=== PATIENT | female | born 1935 | race Caucasian/White ===

== ENCOUNTER → 2017-08-10 | Outpatient (CLI) | payer OTHER ==
[~2017-08-10] MED LIST: ASPI81TA28 PO; ATOR-22 PO; CARV25TA2 PO; CETI10TA10 PO; EXEN1INJ4 SQ; EZET10TA47 PO; GLC/500 PO; HYDR-389 PO; HYDR-4715 PO; IPRA1AER2 INH; IPRASOL34 INH; IRBE1TAB48 PO; LISI-729 PO; MECL1TAB40 PO; NITR0.4S UT; OMEP20CA9 PO; POTA-327 PO; SYMIN160 INH; THEO1CAP2 PO; TRIA3AER NAE; ULT/50 PO
--- NOTE | 2017-08-10 16:50 | DIAGNOSTIC IMAGING REPORT ---
TWO VIEW CHEST CLINICAL HISTORY: Asthma. COPD. FINDINGS: PA and lateral chest radiographs are compared to study dated 12/12/2015. Correlation is made with chest CT dated 08/19/2008. The PA view is degraded by patient rotation. The heart is enlarged and there is atherosclerotic calcification of the thoracic aorta. The pulmonary vasculature is noncongested. Enlargement of the central pulmonary arteries suggests pulmonary artery hypertension. Chronic interstitial thickening and small calcified granulomas are similar to previous. There is no airspace consolidation or pleural effusion. There is no pneumothorax. The skeletal structures are osteopenic. Degenerative change is seen throughout the thoracic spine bony thorax appears intact. Surgical clips are seen in the right lower neck. IMPRESSION: Mild cardiomegaly with no acute cardiopulmonary abnormality. Electronically signed by: Didier Mcgarry M.D. 08/10/2017 4:49 PM Dictated Date/Time: 08/10/2017 4:47 PM
== END | disposition home or self-care (01) ==
LOC: C.RAD1850 16:33
PROVIDERS: ATTEND Physician Assistant
DX: J45.909 Unspecified asthma, uncomplicated (principal); J44.9 Chronic obstructive pulmonary disease, unspecified

== ENCOUNTER 2023-09-24 21:16 | Inpatient (IN) ==
[2023-09-24] MEDS ORDERED: Patient's HEIGHT &/or WEIGHT Needed SCH (21:20)
--- OUTSIDE RECORDS SUMMARY | 2023-09-24 21:20 | External Medical Summary | Summary of Care ---
Author Name Unknown Organization [facility] Address [address] [place] [address] Phone [phone] Care Team Providers Care System Support Analyst Name Role Phone Jose Fitzpatrick MD Primary Care Provider [phone]- [phone] Reason for Visit * Reason Comments eRx-Medication Refill Encounter Details Date Type Department Care Team (Late st Contact Info) Description 08/28/[address] [facility] [address] [place] [address] Jose Fitzpatrick MD [address] [place] [address] Major depressive disorder Allergies No known active allergiesdocumented as of this encounter (statuses as of 08/29/2023) Medications Medication Sig Dispensed Refills Start Date End Date Status OXYGEN 1L HS ANDPRN 0 01/20/1999 Active ASPIRIN 81 MG PO CHEWIndications:D M type 2, goal A1c below 7 One pill by mouth once a day with food 0 0 07/31/2007 Active NITROGLYCERIN 0.4 MG SL SUBLIndications:O bservation for suspected coronary artery disease (CAD) 1 Q 5 min as needed with chest pain up to 3 doses in 15 minutes 25 5 04/16/2008 Active Albuterol Sulfate (ALBUTEROL HFA) 108 (90 BASE) MCG/ACT inhaler Inhale 2 Puffs by mouth every 6 hours as needed for Shortness of Breath. 18 g 1 06/27/2019 Active ipratropium-albut joselo (COMBIVENT RESPIMAT) 20-100 MCG/ACT Inhaler INHALE 1 PUFF 4 TIMES A DAY NEEDED. 12 g 3 07/24/2019 Active BD Pen Needle Short U/F 31G X 8 MM (Insulin Pen Needle)Indication s:Type 2 diabetes mellitus with hemoglobin A1c goal of less than 8.0% ([facility]) use twice a day as directed 200 Each 3 12/03/2021 Active Omeprazole 20 MG Oral Capsule Delayed Release (PriLOSEC) TAKE 1 CAPSULE BY MOUTH ONCE DAILY for stomach acid 90 Capsule 1 01/29/2022 Active Budesonide-Formot joselo Fumarate 160-4.5 MCG/ACT Inhalation Aerosol (Symbicort)Indica tions:Asthma, allergic INHALE TWO PUFFS BY MOUTH TWICE DAILY. RINSE MOUTH AFTER EACH USE 30.6 g 1 09/27/2022 Active Escitalopram Oxalate 20 MG Oral Tablet (Lexapro)Indicati ons:Generalized anxiety disorder Take 1 Tablet by mouth in the morning. 90 Tablet 3 10/01/2022 Active Carvedilol 25 MG Oral Tablet (Coreg) TAKE 1 TABLET BY MOUTH TWICE A DAY WITH MEALS (breakfast and supper) 180 Tablet 2 12/21/2022 Active Lisinopril 5 MG Oral Tablet (Prinivil) TAKE ONE TABLET BY MOUTH IN THE MORNING AND ONE BEFORE BEDTIME 180 Tablet 1 03/09/2023 Active hydrALAZINE HCl 10 MG Oral Tablet (Apresoline) take 1 & 1/2 tablets by mouth three times daily 405 Tablet 1 03/09/2023 Active LORazepam 0.5 MG Oral Tablet (Ativan)Indicatio ns:Generalized anxiety disorder TAKE 1 TABLET BY MOUTH TWICE DAILY NEEDED 60 Tablet 0 04/25/2023 Active Trulicity 0.75 MG/0.5ML Subcutaneous Solution Pen-injector (Dulaglutide)Isela cations:Type 2 diabetes mellitus with hemoglobin A1c goal of less than 8.0% ([facility]) inject contents of 1 syringe (0.75mg) under the skin once weekly 2 mL 5 05/06/2023 Active Ipratropium-Albut joselo 0.5-2.5 (3) MG/3ML Inhalation Solution (Duoneb)Indicatio ns:Extrinsic asthma without complication, unspecified asthma severity, unspecified whether persistent INHALE 1 VIAL VIA NEBULIZER FOUR TIMES DAILY NEEDED FOR SHORTNESS OF BREATH OR WHEEZING 540 mL 1 05/13/2023 Active Ezetimibe 10 MG Oral Tablet (Zetia)Indication s:Dyslipidemia TAKE 1 TABLET BY MOUTH AT BEDTIME FOR HIGH CHOLESTEROL 90 Tablet 1 05/23/2023 Active Atorvastatin Calcium 10 MG Oral Tablet (Lipitor) TAKE 1 TABLET BY MOUTH AT BEDTIME FOR HIGH CHOLESTEROL 90 Tablet 1 05/23/2023 Active Urqkfiosni-BBQI-O affeine 50-325-40 MG Oral Tablet (Fioricet)Indicat ions:Episodic tension-type headache, not intractable TAKE ONE OR TWO TABLETS BY MOUTH EVERY FOUR HOURS NEEDED, NO MORE THAN 6 TABLETS A DAY 30 Tablet 0 07/13/2023 Active HYDROcodone-Aceta minophen 5-325 MG Oral TabletIndications :Cervicalgia Take 1 Tablet by mouth every 8 hours as needed for Pain, Mild. 90 Tablet 0 07/21/2023 Active Gabapentin 100 MG Oral Capsule (Neurontin) 1 at bedtime for 1 week, if ineffective may increase to 1 twice a day 60 Capsule 5 08/04/2023 Active Triamcinolone Acetonide 0.1 % External Cream (Aristocort)Indic ations:Dermatitis Apply topically to affected area 2 times a day. 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 08/29/2018 Major depressive disorder wi th single episode, in full remission 05/02/2018 Chronic obstructive pulmonary disease (COPD) Cor pulmonale (chronic) 05/02/2018 History of PSVT (paroxysmal supraventricular tac hycardia) 08/19/2017 VENTURA (generalized anxiety disorder) 08/19/2017 Gastroesophageal reflux disease 08/19/2017 Dyslipidemia 08/19/2017 HTN, goal below 140/90 08/13/2014 Type 2 diabetes mellitus wit h hemoglobin A1c goal of less than 8.0% 05/14/2013 Overview: ICD-10 update of inactive term EXT ASTHMA W-O STAT ASTH documented as of this encounter (statuses as of 08/29/2023) Resolved Problems Problem Noted Date Diagnosed Date Resolved Date MEDICATION USE AGREEMENT 11/12/2016 Overview: Signed 11/04/2016 Type 2 diabetes mellitus wit h hemoglobin A1c goal of 7.0%-8.0% 01/26/2012 05/14/2013 Overview: ICD-10 update of inactive term HTN, goal below 130/80 01/25/201208/13 Dyslipidemia, goal LDL below 100 05/17/2011 11/24/2016 Type 2 diabetes mellitus wit h hemoglobin A1c goal of less than 7.0% 07/10/2010 01/26/2012 Overview: ICD-10 update of inactive term HTN, goal below 140/90 04/24/200901/24 Overview: Modified per HTN protocol #16. ADVANCE DIRECTIVE INFORMATION 08/16/2005 08/19/2017 Overview: No, Advance Directive brochure given to patient. Other atopic dermatitis 04/01/200401/05 Overview: ICD-10 update of inactive term Dyslipidemia, goal to be determined 04/01/2004 05/17/2011 Paroxysmal SVT (supraventricular tachycardia) 04/02/20 02 08/19/2017 Observation for suspected co ronary artery disease (CAD) 04/02/2002 07/31/2007 Urinary incontinence 03/24/2000 018 Overview: ICD-10 update of inactive term Prolapse of vaginal zamorano 03/24/2000 Overview: ICD-10 update of inactive term HYPERTENSION NOS 04/24/2009 Overview: Modified per HTN protocol #16. Major depressive disorder Overview: ICD-10 update of inactive term Menopause 01/25/2012 documented as of this encounter (statuses as of 08/29/2023) Immunizations Name Administration Dates Next Due COVID-19, MRNA-LNP, 23-24, P F, 50 MCG/0.5 mL, 12 YRS AND ABOVE, IM (MODERNA-Spikevax) 04/07/2023 Pneumococcal Conjugate Vacc, 13 Valent (Prevnar) 04/27/2017 Pneumococcal Polysaccharide PPV23 (Pneumovax) 03/27/2007 Seasonal Influenza, PF, 6 M & above, IM , (FluLaval or Fluzone) 03/13/2018,04/27/2017 04/27/2018 Seasonal Influenza, Quadriva lent Hd (Fluzone Hd) 03/13/2022,04/08/2021 Seasonal Influenza, Quadriva lent, No Preserve, IM 02/04/2019 Seasonal Influenza, Split, I IV3, No Preserve, Inj 04/02/2002 Seasonal Influenza, Split, I IV3, With Preserve, Inj 03/06/2011,04/06/2009,04/09/2008,03/06 TD, Preservative Free 01/06/2009 Zoster Vaccine Recombinant (Shingrix) 08/04/2023 ,04/07/2023 documented as of this encounter Social History Tobacco Use Types Packs/Day Years Used Date Smoking Tobacco: Never Smokeless Tobacco: Never Alcohol Use Standard Drinks/Week Comments No 0 (1 standard drink = 0.6 oz pur e alcohol) PHQ-2 Answer Date Recorded PHQ-2 Score 1 01/25/2019 Hunger Vital Sign Answer Date Recorded Worried About Running Out of Food in the Last Ye ar Never true 01/25/2019 Ran Out of Food in the Last Year Never true 01/25/2019 Sex and Gender Information Value Date Recorded Sex Assigned at Female 01/25/2019 1:04 PM EDT Gender Identity Female 01/25/2019 1:04 PM EDT Sexual Orientation Straight 01/25/2019 1: 04 PM EDT Job Start Date Occupation Industry Not on file Not on file Not on file documented as of this encounter Miscellaneous Notes * Telephone Encounter - Jose Fitzpatrick MD - 08/29/2023 12:47 PM EDTSigned Prescriptions: Disp Refills hydrOXYzine HCl 10 MG Oral Tablet (Atarax) 100 Ta*1 Sig: TAKE 1 TABLET BY MOUTH THREE TIMES DAILY NEEDEDAuthorizing Provider: JOSE FITZPATRICK * Telephone Encounter - Bambi Melo [facility] - 08/29/2023 11:58 AM EDT Pending Prescriptions: Disp Refills hydrOXYzine HCl 10 MG Oral Tablet (Atarax) 100 Ta*1 Sig: TAKE 1TABLET BY MOUTH THREE TIMES DAILY NEEDED documented in this encounter Plan of Treatment Upcoming Encounters Date Type Department Care Team (Late st Contact Info) Description 09/01/2023 1:30 PM EDT Office Visit Cardiology, [facility] [address] [address] Lynette Christian CRNP [address] [address] 10/04/2023 1:00 PM EDT Office Visit [address] [place] [address] OctoberHarman MD [address] [place] [address] Health Maintenance Due Date Last Done Comments Alpha-1 Antitrypsin 08/24/1953 DTaP,Tdap,and Td Vaccines (1 - Tdap) 01/07/2009 01/06/2009, 01/03/1995, 01/03/1995 CKD HGB USE SMARTSET 69849 04/27/201804/27, 05/22/2012, 05/17/2011, Additional history exists Mammogram 08/26/2019 08/25/2018, 01/04, 01/19/2011 (Done elsewhere), Additional history exists Depression Screening 01/26/2020 01/25/2019 Albumin/Creatinine Ratio 10/29/2022 022, 10/21/2020, 01/08/2020, Additional history exists Influenza Vaccine (FLU shot) (#1) 2023 03/13/2022, 04/08/2021, 03/08/2019, Additional history exists Diabetic Eye Exam 06/04/2023 06/04/2022, , 06/03/2020, Additional history exists B-12 10/02/2023 10/01/2022, 04/07, 10/21/2020, Additional history exists CKD PHOS USE SMARTSET 40548 10/02/2023 10/01/2022 Diabetic Foot Exam 10/02/2023 10/01/2022, 1 07/30/2018, 05/02/2018, Additional history exists HbA1c 10/04/2023 04/04/2023, 09/05, 06/02/2022, Additional history exists O2 ASSESSMENT COMPLETED IN PAST YEAR FOR COPD 08/03/2024 08/04/2023 DXA Scan 04/20/2025 04/20/2022, 04/06, 09/27/2017, Additional history exists Pneumococcal Vaccine: 65+ Years Completed 04/27/2017, 03/27/2007, 04/03/2002, Additional history exists COVID-19 Vaccine Completed 04/07/2023 Zoster Vaccines Completed 08/04/2023, 04/07/2023 GARDASIL-HPV IMMUNIZATION SERIES Aged Out No longer eligible based on patient's age to complete this topic Hepatitis B Aged Out No longer eligi ble based on patient's age to complete this topic MENINGOCOCCAL (MENACTRA/MENVEO) Aged Out No longer eligible based on patient's age to complete this topic documented as of this encounter Medical Devices Not on filedocumented as of this encounter Visit Diagnoses Diagnosis Major depressive disorder Major depressive disorder, single episode, unspecified documented in this encounter Care Teams System Support Analyst Relationship Specialty Start Date End Date Jose Fitzpatrick MD [address] [place] [address] PCP - General Family Medicine 11/04/16 documented as of this encounter
--- OUTSIDE RECORDS SUMMARY | 2023-09-24 21:20 | External Medical Summary | Summary of Care ---
Author Name Unknown Organization [facility] Address [address] [place] [address] Phone [phone] Care Team Providers Care Restaurant Kitchen Manager Name Role Phone Freddy Fitzpatrick MD Primary Care Provider [phone]- [phone] Reason for Visit * Reason Comments eRx-Medication Refill Encounter Details Date Type Department Care Team (Late st Contact Info) Description 09/11/2023 Refill [facility] [address] [place] [address] Freddy Fitzpatrick MD [address] [place] [address] Allergies No known active allergiesdocumented as of this encounter (statuses as of 09/12/2023) Medications Medication Sig Dispensed Refills Start Date End Date Status OXYGEN 1L HS ANDPRN 0 9 Active ASPIRIN 81 MG PO CHEWIndications:D M type 2, goal A1c below 7 One pill by mouth once a day with food 0 0 8 Active NITROGLYCERIN 0.4 MG SL SUBLIndications:O bservation for suspected coronary artery disease (CAD) 1 Q 5 min as needed with chest pain up to 3 doses in 15 minutes 25 5 8 Active Albuterol Sulfate (ALBUTEROL HFA) 108 (90 BASE) MCG/ACT inhaler Inhale 2 Puffs by mouth every 6 hours as needed for Shortness of Breath. 18 g 1 0 Active ipratropium-albut joselo (COMBIVENT RESPIMAT) 20-100 MCG/ACT Inhaler INHALE 1 PUFF 4 TIMES A DAY NEEDED. 12 g 3 0 Active BD Pen Needle Short U/F 31G X 8 MM (Insulin Pen Needle)Indication s:Type 2 diabetes mellitus with hemoglobin A1c goal of less than 8.0% (HCC) use twice a day as directed 200 Each 3 2 Active Omeprazole 20 MG Oral Capsule Delayed Release (PriLOSEC) TAKE 1 CAPSULE BY MOUTH ONCE DAILY for stomach acid 90 Capsule 1 2 Active Budesonide-Formot joselo Fumarate 160-4.5 MCG/ACT Inhalation Aerosol (Symbicort)Indica tions:Asthma, allergic INHALE TWO PUFFS BY MOUTH TWICE DAILY. RINSE MOUTH AFTER EACH USE 30.6 g 1 3 Active Escitalopram Oxalate 20 MG Oral Tablet (Lexapro)Indicati ons:Generalized anxiety disorder Take 1 Tablet by mouth in the morning. 90 Tablet 3 3 Active LORazepam 0.5 MG Oral Tablet (Ativan)Indicatio ns:Generalized anxiety disorder TAKE 1 TABLET BY MOUTH TWICE DAILY NEEDED 60 Tablet 0 3 Active Trulicity 0.75 MG/0.5ML Subcutaneous Solution Pen-injector (Dulaglutide)Isela cations:Type 2 diabetes mellitus with hemoglobin A1c goal of less than 8.0% ([facility]) inject contents of 1 syringe (0.75mg) under the skin once weekly 2 mL 5 3 Active Ipratropium-Albut joselo 0.5-2.5 (3) MG/3ML Inhalation Solution (Duoneb)Indicatio ns:Extrinsic asthma without complication, unspecified asthma severity, unspecified whether persistent INHALE 1 VIAL VIA NEBULIZER FOUR TIMES DAILY NEEDED FOR SHORTNESS OF BREATH OR WHEEZING 540 mL 1 3 Active Ezetimibe 10 MG Oral Tablet (Zetia)Indication s:Dyslipidemia TAKE 1 TABLET BY MOUTH AT BEDTIME FOR HIGH CHOLESTEROL 90 Tablet 1 3 Active Atorvastatin Calcium 10 MG Oral Tablet (Lipitor) TAKE 1 TABLET BY MOUTH AT BEDTIME FOR HIGH CHOLESTEROL 90 Tablet 1 3 Active Yimzfgqqgo-DPTR-I affeine 50-325-40 MG Oral Tablet (Fioricet)Indicat ions:Episodic tension-type headache, not intractable TAKE ONE OR TWO TABLETS BY MOUTH EVERY FOUR HOURS NEEDED, NO MORE THAN 6 TABLETS A DAY 30 Tablet 0 4 Active Triamcinolone Acetonide 0.1 % External Cream (Aristocort)Indic ations:Dermatitis Apply topically to affected area 2 times a day. Apply to neck and chest 80 g 0 4 Active hydrOXYzine HCl 10 MG Oral Tablet (Atarax)Indicatio ns:Major depressive disorder TAKE 1 TABLET BY MOUTH THREE TIMES DAILY NEEDED 100 Tablet 1 4 Active Gabapentin 100 MG Oral Capsule (Neurontin) 2 twice a day 120 Capsule 5 4 Active HYDROcodone-Aceta minophen 5-325 MG Oral TabletIndications :Cervicalgia Take 1 Tablet by mouth every 8 hours as needed for Pain, Mild. 90 Tablet 0 4 Active Carvedilol 25 MG Oral Tablet (Coreg) take 1 tablet by mouth twice a day with meals (breakfast and supper) 180 Tablet 1 4 Active Lisinopril 5 MG Oral Tablet (Prinivil) TAKE 1 TABLET BY MOUTH TWICE DAILY EVERY MORNING AND BEFORE BEDTIME 180 Tablet 1 4 Active hydrALAZINE HCl 10 MG Oral Tablet (Apresoline) TAKE 1 & 1/2 TABLETS BY MOUTH THREE TIMES DAILY 405 Tablet 3 4 Active Carvedilol 25 MG Oral Tablet (Coreg) TAKE 1 TABLET BY MOUTH TWICE A DAY WITH MEALS (breakfast and supper) 180 Tablet 2 3 09/12/19 24 Discontinued Lisinopril 5 MG Oral Tablet (Prinivil) TAKE ONE TABLET BY MOUTH IN THE MORNING AND ONE BEFORE BEDTIME 180 Tablet 1 3 09/12/19 24 Discontinued hydrALAZINE HCl 10 MG Oral Tablet (Apresoline) take 1 & 1/2 tablets by mouth three times daily 405 Tablet 1 3 09/12/19 24 Discontinued documented as of this encounter (statuses as of 09/12/2023) Active Problems Problem Noted Date Diagnosed Date [...] as of this encounter (statuses as of 09/12/2023) Resolved Problems Problem Noted Date Diagnosed Date [...] as of this encounter (statuses as of 09/12/2023) Immunizations Name Administration Dates Next Due COVID-19, [...] encounter Miscellaneous Notes * Telephone Encounter - Freddy Fitzpatrick MD - 09/12/2023 4:28 PM EDTSigned Prescriptions: Disp Refills Carvedilol 25 MG Oral Tablet (Coreg) 180 Ta*1 Sig: take 1 tabletby mouth twice a day with meals (breakfast and supper)Authorizing Provider: FREDDY FITZPATRICK User: GENOVEVA SANCHEZ Lisinopril 5 MG Oral Tablet (Prinivil) 180 Ta*1 Sig: TAKE 1 TABLET BYMOUTH TWICE DAILY EVERY MORNING AND BEFORE BEDTIMEAuthorizing Provider: FREDDY FITZPATRICK User: GENOVEVA SANCHEZ hydrALAZINE HCl 10 MG Oral Tablet (Apresol*405 Ta*3 Sig: TAKE 1 & 1/2 TABLETS BY MOUTH THREE TIMES DAILYAuthorizing Provider: FREDDY FITZPATRICK-- * Telephone Encounter - Genoveva Sanchez [facility] - 09/12/2023 3:17 PM EDTPending Prescriptions: Disp Refills hydrALAZINE HCl 10 MG Oral Tablet (Apresol*405 Ta*0 Sig: TAKE 1 & 1/2 TABLETS BY MOUTH THREE TIMES DAILY Signed Prescriptions: Disp Refills Carvedilol 25 MG Oral Tablet (Coreg) 180 Ta*1 Sig: take 1 tablet by mouth twice a day with meals (breakfast and supper) Authorizing Provider: Cheo FITZPATRICK Ordering User: GRYBOSKI, GENOVEVA [place] Lisinopril 5 MG Oral Tablet (Prinivil) 180 Ta*1 Sig: TAKE 1 TABLET BY MOUTH TWICE DAILY EVERY MORNING AND BEFORE BEDTIME Authorizing Provider: FREDDY FITZPATRICK User: GENOVEVA SANCHEZ * Telephone Encounter - Genoveva Sanchez [facility] - 09/12/2023 3:16 PM EDT Unable to authorize medication refills for pended medication(s) at this time. Part of the protocol criteria used for refill authorization was not satisfied. Patient needs CBC within last year. Pleaseapprove if appropriate. Pending Prescriptions: Disp Refills hydrALAZINE HCl 10 MG Oral Tablet (Apreso*405 Ta*0 Sig: TAKE 1 & 1/2 TABLETS BY MOUTH THREE TIMES DAILY Thank you, Genoveva Sanchez [facility] Clinical Pharmacist [facility] ([facility]) (formerly Telepharmacy) 09/12/23 3:16 PM [phone] * Telephone Encounter - Genoveva Sanhcez [facility] - 09/12/2023 3:10 PM EDT Did you pend patient's preferred pharmacy and medication before forwarding?yes Pharmacy: [id number] [id number] [address] Pending Prescriptions: Disp Refills hydrALAZINE HCl 10 MG Oral Tablet (Apreso*405 Ta*0 Sig: TAKE 1 & 1/2 TABLETS BY MOUTH THREE TIMES DAILY Signed Prescriptions: Disp Refills Carvedilol 25 MG Oral Tablet (Coreg) 180 Ta*1 Sig: take 1 tablet by mouth twice a day with meals (breakfast and supper) Authorizing Provider: FREDDY FITZPATRICK Ordering User: GENOVEVA SANCHEZ Lisinopril 5 MG Oral Tablet (Prinivil) 180 Ta*1 Sig: TAKE 1 TABLET BY MOUTH TWICE DAILY EVERY MORNING AND BEFORE BEDTIME Authorizing Provider: FREDDY FITZPATRICK Ordering User: GENOVEVA SANCHEZ Last Visit: 04/04/2023 (in office), 07/01/2020 (telemedicine) Next Visit: 10/04/2023 If no future appointments scheduled, and last appointment is greater than a year ago, please schedule patient for a follow-up appointment Last date the medication was ordered: 03/09/2023 Is this request for a controlled substance?No Urine Drug Screen:No results found. However, due to the size of the patient record, not all encounters were searched. Please check Results Review for a complete set of results. Patient Phone Numbers Labs: Lab Results Component Value Date/Time CREAT 0.8 04/04/2023 01:52 PM CREAT 0.9 01/08/2020 10:47 AM POTASSIUM 4.4 04/04/2023 01:52 PM POTASSIUM 5.0 01/08/2020 10:47 AM TSH 1.31 05/22/2012 03:52 PM LDLCALC UNINTERPRETABLE RESULT 01/25/2019 02:17 PM LDLDIRECT 54 04/04/2023 01:52 PM LDLDIRECT 54 01/08/2020 10:47 AM ALT 6 (L) 04/04/2023 01:52 PM ALT 11 01/08/2020 10:47 AM HGBA1C 6.1 (H) 04/04/2023 01:52 PM HGBA1C 7.2 (H) 01/08/2020 10:47 AM documented in this encounter Plan of Treatment Upcoming Encounters Date Type Department Care Team (Late st Contact Info) Description 10/04/2023 1:00 PM EDT Office Visit [address] [place] [address] Harman Rodriguez MD [address] [place] [address] 10/10/2023 1:00 PM EDT Office Visit Neurology [facility] [address] [facility] [place] [address] Tiffanie Olsen MD [address] [facility] [place] [address] 01/24/2024 11:00 AM EDT Office Visit [facility], [facility] [address] [facility] [place] [address] Lynette Christian CRNP [address] [place] [address] Health Maintenance Due Date Last Done Comments Alpha-1 Antitrypsin 08/24/1953 DTaP,Tdap,and Td Vaccines (1 - Tdap) 01/07/2009 01/06/2009, 01/03/1995, 01/03/1995 CKD HGB USE SMARTSET 91348 04/27/201804/27, 05/22/2012, 05/17/2011, Additional history exists Mammogram 08/26/2019 08/25/2018, 01/04, 01/19/2011 (Done elsewhere), Additional history exists Albumin/Creatinine Ratio 10/29/2022 022, 10/21/2020, 01/08/2020, Additional history exists Diabetic Eye Exam 06/04/2023 06/04/2022, , 06/03/2020, Additional history exists B-12 10/02/2023 10/01/2022, 04/07, 10/21/2020, Additional history exists CKD PHOS USE SMARTSET 63269 10/02/2023 10/01/2022 Diabetic Foot Exam 10/02/2023 10/01/2022, 1 07/30/2018, 05/02/2018, Additional history exists HbA1c 10/04/2023 04/04/2023, 09/05, 06/02/2022, Additional history exists Influenza Vaccine (FLU shot) (Season Ended) 2024 03/13/2022, 04/08/2021, 03/08/2019, Additional history exists O2 ASSESSMENT COMPLETED IN [...] Not on filedocumented as of this encounter Care Teams Restaurant Kitchen Manager Relationship Specialty Start Date End Date Freddy Fitzpatrick MD [address] [place] [address] PCP - General Family Medicine 11/04/16 documented as of this encounter
--- OUTSIDE RECORDS SUMMARY | 2023-09-24 21:20 | External Medical Summary | Summary of Care ---
Author Name Unknown Organization [facility] Address [address] [facility] [place] [address] Phone [phone] Care Team Providers Care Vision Mixer Name Role Phone Jose Fitzpatrick MD Primary Care Provider [phone]- [phone] Reason for Visit * Reason Onset Date Comments Medication Refill 09/08/2023 Encounter Details Date Type Department Care Team (Late st Contact Info) Description 09/08/2023 Refill [facility] [address] [place] [address] Jose Fitzpatrick MD [address] [place] [address] Cervicalgia Allergies No known active allergiesdocumented as of this encounter (statuses as of 09/09/2023) Medications Medication Sig Dispensed Refills Start Date [...] hemoglobin A1c goal of less than 8.0% ([facility]) use twice a day as directed 200 [...] hemoglobin A1c goal of less than 8.0% ([facility]) inject contents of 1 syringe [...] HIGH CHOLESTEROL 90 Tablet 1 05/23/2023 Active Xwbgzuozbv-GDCD-V affeine 50-325-40 MG Oral Tablet (Fioricet)Indicat ions:Episodic tension-type headache, not intractable TAKE ONE OR TWO TABLETS BY MOUTH EVERY FOUR HOURS NEEDED, NO MORE THAN 6 TABLETS A DAY 30 Tablet 0 07/13/2023 Active Triamcinolone Acetonide 0.1 % External Cream (Aristocort)Indic ations:Dermatitis Apply topically to affected area 2 times a day. Apply to neck and chest 80 g 0 08/22/2023 Active hydrOXYzine HCl 10 MG Oral Tablet (Atarax)Indicatio ns:Major depressive disorder TAKE 1 TABLET BY MOUTH THREE TIMES DAILY NEEDED 100 Tablet 1 08/29/2023 Active Gabapentin 100 MG Oral Capsule (Neurontin) 2 twice a day 120 Capsule 5 09/06/2023 Active HYDROcodone-Aceta minophen 5-325 MG Oral TabletIndications :Cervicalgia Take 1 Tablet by mouth every 8 hours as needed for Pain, Mild. 90 Tablet 0 09/09/2023 Active HYDROcodone-Aceta minophen 5-325 MG Oral TabletIndications :Cervicalgia Take 1 Tablet by mouth every 8 hours as needed for Pain, Mild. 90 Tablet 0 07/21/2023 4 Discontinue d(Refill) documented as of this encounter (statuses as of 09/09/2023) Active Problems Problem Noted Date Diagnosed Date [...] as of this encounter (statuses as of 09/09/2023) Resolved Problems Problem Noted Date Diagnosed Date [...] as of this encounter (statuses as of 09/09/2023) Immunizations Name Administration Dates Next Due COVID-19, [...] Telephone Encounter - Jose Fitzpatrick MD - 09/09/2023 4:15 PM EDTSigned Prescriptions: Disp Refills HYDROcodone-Acetaminophen 5-325 MG Oral Ta*90 Tab*0 Sig: Take 1 Tablet by mouth every 8 hours as needed for Pain, Mild.Authorizing Provider: JOSE FITZPATRICK----- * Telephone Encounter - Claribel Aguiar [facility] - 09/09/2023 1:44 PM EDTPending Prescriptions: Disp Refills HYDROcodone-Acetaminophen 5-325 MG Oral Ta*90 Tab*0 Sig: Take 1 Tablet by mouth every 8 hours as needed for Pain, Mild. * Telephone Encounter - Claribel Aguiar [facility] - 09/09/2023 1:44 PM EDT I have reviewed the patients controlled substance dispensing history in the Prescription Drug Monitoring Program in compliance with the [facility] regulations before prescribing a controlled substance. PDMP checked on 09/09/2023. Pending Prescriptions: Disp Refills HYDROcodone-Acetaminophen 5-325 MG Oral T*90 Tab*0 Sig: Take 1 Tablet by mouth every 8 hours as needed for Pain, Mild. Last Visit: 04/04/2023 (in office), 07/01/2020 (telemedicine) Next Visit: 10/04/2023 Date medication was last filled: 07/24/23 Date medication is due for refill: 08/22/23 [id number] [id number] Is this request for a controlled substance? Yes and Urine Drug Screen Not completed Toxicology results: No results found. However, due to the size of the patient record, not all encounters were searched.Please check Results Review for a complete set of results. Please approve if appropriate. Thanks, Claribel Aguiar Clinical Pharmacist [facility]) [phone] 09/09/2023, 1:44 PM documented in this encounter Plan of Treatment Upcoming Encounters Date Type Department Care Team (Late st Contact Info) Description 10/04/2023 1:00 PM EDT Office Visit [address] [phone] OctoberHarman MD [address] [place] [address] 10/10/2023 1:00 PM EDT Office Visit Neurology [facility] [address] [facility] [place] [address] Tiffanie Olsen MD [address] [facility] [place] [address] 01/24/2024 11:00 AM EDT Office Visit Cardiology, [facility] [address] [address] Lynette Christian CRNP [address] [address] Health Maintenance Due Date Last Done Comments Alpha-1 Antitrypsin 08/24/1953 DTaP,Tdap,and Td Vaccines (1 - Tdap) 01/07/2009 01/06/2009, 01/03/1995, 01/03/1995 CKD HGB USE SMARTSET 69244 04/27/201804/27, 05/22/2012, 05/17/2011, Additional history exists Mammogram 08/26/2019 08/25/2018, 01/04, 01/19/2011 (Done elsewhere), Additional history exists Depression Screening 01/26/2020 01/25/2019 Albumin/Creatinine Ratio 10/29/2022 022, 10/21/2020, 01/08/2020, Additional history exists Diabetic Eye Exam 06/04/2023 06/04/2022, , 06/03/2020, Additional history exists B-12 10/02/2023 10/01/2022, 04/07, 10/21/2020, Additional history exists CKD PHOS USE SMARTSET 28258 10/02/2023 10/01/2022 Diabetic Foot Exam 10/02/2023 10/01/2022, [...] as of this encounter Visit Diagnoses Diagnosis Cervicalgia documented in this encounter Care Teams Vision Mixer Relationship Specialty Start Date End Date Jose Fitzpatrick MD [address] [place] [address] PCP - General Family Medicine 11/04/16 documented as of this encounter
--- OUTSIDE RECORDS SUMMARY | 2023-09-24 21:21 | External Medical Summary | Summary of Care ---
Author Name Unknown Organization [facility] Address [address] [place] [address] Phone [phone] Care Team Providers Care Glove Maker Name Role Phone Jose Bowles MD Primary Care Provider [phone]- [phone] Reason for Visit * Reason Onset Date Comments Pre Cert/Prior Auth 07/21/2023 Encounter Details Date Type Department Care Team (Late st Contact Info) Description 07/21/2023 Telephone [facility] [address] [place] [address] Jose Bowles MD [address] [place] [address] Pre Cert/Prior Auth Allergies No known active allergiesdocumented as of this encounter (statuses as of 07/22/2023) Medications Medication Sig Dispensed Refills Start Date End Date Status OXYGEN 1L HS ANDPRN 0 01/20/1999 Active ASPIRIN 81 MG PO CHEWIndications:DM type 2, goal A1c below 7 One pill by mouth once a day with food 0 0 07/31/2007 Active NITROGLYCERIN 0.4 MG SL SUBLIndications:Obs ervation for suspected coronary artery disease (CAD) 1 Q 5 min as needed with chest pain up to 3 doses in 15 minutes 25 5 04/16/2008 Active Albuterol Sulfate (ALBUTEROL HFA) 108 (90 BASE) MCG/ACT inhaler Inhale 2 Puffs by mouth every 6 hours as needed for Shortness of Breath. 18 g 1 06/27/2019 Active ipratropium-albuter ol (COMBIVENT RESPIMAT) 20-100 MCG/ACT Inhaler INHALE 1 PUFF 4 TIMES A DAY NEEDED. 12 g 3 07/24/2019 Active BD Pen Needle Short U/F 31G X 8 MM (Insulin Pen Needle)Indications: Type 2 diabetes mellitus with hemoglobin A1c goal of less than 8.0% ([facility]) use twice a day as directed 200 Each 3 12/03/2021 Active Omeprazole 20 MG Oral Capsule Delayed Release (PriLOSEC) TAKE 1 CAPSULE BY MOUTH ONCE DAILY for stomach acid 90 Capsule 1 01/29/2022 Active Budesonide-Formoter ol Fumarate 160-4.5 MCG/ACT Inhalation Aerosol (Symbicort)Indicati ons:Asthma, allergic INHALE TWO PUFFS BY MOUTH TWICE DAILY. RINSE MOUTH AFTER EACH USE 30.6 g 1 09/27/2022 Active Escitalopram Oxalate 20 MG Oral Tablet (Lexapro)Indication s:Generalized anxiety disorder Take 1 Tablet by mouth [...] 03/09/2023 Active LORazepam 0.5 MG Oral Tablet (Ativan)Indications :Generalized anxiety disorder TAKE 1 TABLET BY MOUTH TWICE DAILY NEEDED 60 Tablet 0 04/25/2023 Active Trulicity 0.75 MG/0.5ML Subcutaneous Solution Pen-injector (Dulaglutide)Indica tions:Type 2 diabetes mellitus with hemoglobin A1c goal of less than 8.0% ([facility]) inject contents of 1 syringe (0.75mg) under the skin once weekly 2 mL 5 05/06/2023 Active Triamcinolone Acetonide 0.1 % External Cream (Aristocort)Indicat ions:Dermatitis Apply topically to affected area 2 times a day. Apply to neck and chest 80 g 0 05/13/2023 Active Ipratropium-Albuter ol 0.5-2.5 (3) MG/3ML Inhalation Solution (Duoneb)Indications :Extrinsic asthma without complication, unspecified asthma severity, unspecified whether persistent INHALE 1 VIAL VIA NEBULIZER FOUR TIMES DAILY NEEDED FOR SHORTNESS OF BREATH OR WHEEZING 540 mL 1 05/13/2023 Active Ezetimibe 10 MG Oral Tablet (Zetia)Indications: Dyslipidemia TAKE 1 TABLET BY MOUTH AT BEDTIME FOR HIGH CHOLESTEROL 90 Tablet 1 05/23/2023 Active Atorvastatin Calcium 10 MG Oral Tablet (Lipitor) TAKE 1 TABLET BY MOUTH AT BEDTIME FOR HIGH CHOLESTEROL 90 Tablet 1 05/23/2023 Active hydrOXYzine HCl 10 MG Oral Tablet (Atarax)Indications :Major depressive disorder TAKE 1 TABLET BY MOUTH THREE TIMES DAILY only NEEDED 100 Tablet 1 06/21/2023 Active Hxaocpqfyo-VVUP-Nhm feine 50-325-40 MG Oral Tablet (Fioricet)Indicatio ns:Episodic tension-type headache, not intractable TAKE ONE OR TWO TABLETS BY MOUTH EVERY FOUR HOURS NEEDED, NO MORE THAN 6 TABLETS A DAY 30 Tablet 0 07/13/2023 Active HYDROcodone-Acetami nophen 5-325 MG Oral TabletIndications:C ervicalgia Take 1 Tablet by mouth every 8 hours as needed for Pain, Mild. 90 Tablet 0 07/21/2023 Active documented as of this encounter (statuses as of 07/22/2023) Active Problems Problem Noted Date Diagnosed Date [...] as of this encounter (statuses as of 07/22/2023) Resolved Problems Problem Noted Date Diagnosed Date [...] as of this encounter (statuses as of 07/22/2023) Immunizations Name Administration Dates Next Due COVID-19, MRNA-LNP, 23-24, P F, 50 MCG/0.5 mL, 12 YRS AND ABOVE, IM (MODERNA-Spikevax) 04/07/2023 Diptheria/Tetanus (Adult) 01/03/1995 Pneumococcal Conjugate Vacc, 13 Valent (Prevnar) 04/27/2017 Pneumococcal Polysaccharide PPV23 (Pneumovax) 03/27/2007,04/03/2002,03/06/1982 Seasonal Influenza Virus Vac cine, Unspecified Formulation 03/06/1997,03/06/1996,03/06/1995,06/1993 Seasonal Influenza, PF, 6 M & above, IM , (FluLaval or Fluzone) 03/13/2018,04/27/2017 04/27/2018 Seasonal Influenza, Quadriva lent Hd (Fluzone Hd) 03/13/2022,04/08/2021 Seasonal Influenza, Quadriva lent, No Preserve, IM 02/04/2019 Seasonal Influenza, Split, I IV3, No Preserve, Inj 04/02/2002 Seasonal Influenza, Split, I IV3, With Preserve, Inj 03/06/2011,04/06/2009,04/09/2008,03/06,04/02/2002,05/05/2000 04/02/2003 TD, Preservative Free 01/06/2009 Zoster Vaccine Recombinant (Shingrix) 04/07/2023 documented as of this encounter Social History [...] encounter Miscellaneous Notes * Telephone Encounter - Conchis Mon LPN - 07/22/2023 9:07 AM EST Medication was approved by insurance. * Telephone Encounter - Conchis Mon LPN - 07/21/2023 3:34 PM EST Started prior auth with [facility]# [id number] For Hydroxyzine HCI 10 mg documented in this encounter Plan of Treatment Upcoming Encounters Date Type Department Care Team (Late st Contact Info) Description 08/04/2023 2:20 PM EST Office Visit Neurology [facility] [address] [facility] [place] [address] [facility]iff[facility] [address] [facility] [address] 09/07/2023 1:00 PM EDT Office Visit Cardiology, [facility] [address] [facility] [address] [place] [address] Lynette Christian CRNP [address] [facility] [place] [address] 10/04/2023 1:00 PM EDT Office Visit Family [facility] [address] [place] [id number] Harman Rodriguez MD [address] [place] [address] Health Maintenance Due Date Last Done Comments Alpha-1 Antitrypsin 08/24/1953 DTaP,Tdap,and Td Vaccines (1 - Tdap) 01/07/2009 01/06/2009, 01/03/1995, 01/03/1995 CKD HGB USE SMARTSET 61338 04/27/201804/27, 05/22/2012, 05/17/2011, Additional history exists Mammogram 08/26/2019 08/25/2018, 01/04, 01/19/2011 (Done elsewhere), Additional history exists Depression Screening 01/26/2020 01/25/2019 Albumin/Creatinine Ratio 10/29/2022 022, 10/21/2020, 01/08/2020, Additional history exists Influenza Vaccine (FLU shot) (#1) 2023 03/13/2022, 04/08/2021, 03/08/2019, Additional history exists Zoster Vaccines (2 of 2) 06/02/2023 04/07/2023 Diabetic Eye Exam 06/04/2023 06/04/2022, , 06/03/2020, Additional history exists B-12 10/02/2023 10/01/2022, 04/07, 10/21/2020, Additional history exists CKD PHOS USE SMARTSET 39490 10/02/2023 10/01/2022 Diabetic Foot Exam 10/02/2023 10/01/2022, 1 07/30/2018, 05/02/2018, Additional history exists HbA1c 10/04/2023 04/04/2023, 09/05, 06/02/2022, Additional history exists O2 ASSESSMENT COMPLETED IN PAST YEAR FOR COPD 04/04/2024 04/04/2023 DXA Scan 04/20/2025 04/20/2022, 04/06, 09/27/2017, Additional history exists Pneumococcal Vaccine: 65+ Years Completed 04/27/2017, 03/27/2007, 04/03/2002, Additional history exists COVID-19 Vaccine Completed 04/07/2023 GARDASIL-HPV IMMUNIZATION SERIES Aged Out No [...] filedocumented as of this encounter Care Teams Glove Maker Relationship Specialty Start Date End Date Jose Bowles MD [address] [place] [address] PCP - General Family Medicine 11/04/16 documented as of this encounter
--- OUTSIDE RECORDS SUMMARY | 2023-09-24 21:21 | External Medical Summary | Summary of Care ---
Author Name Unknown Organization [facility] Address [address] [address] Phone [phone] Care Team Providers Care Avionics Engineer Name Role Phone Jose Bowles MD Primary Care Provider [phone]- [phone] Reason for Visit * Reason Comments Return Neuro Encounter Details Date Type Department Care Team (Late st Contact Info) Description 08/04/2023 2:20 PM EST Office Visit Neurology [facility] [place] [address] [facility] [place] [address] Tiffanie Olsen MD [facility] [address] Occipital neuralgia, unspecified laterality* Allergies No known active allergiesdocumented as of this encounter (statuses as of 08/05/2023) Medications Medication Sig Dispensed Refills Start Date [...] hemoglobin A1c goal of less than 8.0% ([facility]) use twice a day as directed [...] hemoglobin A1c goal of less than 8.0% ([facility]) inject contents of 1 syringe (0.75mg) under [...] only NEEDED 100 Tablet 1 06/21/2023 Active Dcyphhpdwh-YDRL-Emp feine 50-325-40 MG Oral Tablet (Fioricet)Indicatio ns:Episodic [...] a day 60 Capsule 5 08/04/2023 Active documented as of this encounter (statuses as of 08/05/2023) Active Problems Problem Noted Date Diagnosed Date [...] as of this encounter (statuses as of 08/05/2023) Resolved Problems Problem Noted Date Diagnosed Date [...] determined 04/01/2004 05/17/2011 Paroxysmal SVT (supraventricular tachycardia) 04/02/2008/19/2017 Observation for suspected co ronary artery disease (CAD) 04/02/2002 07/31/2007 Urinary incontinence 03/24/2000 018 Overview: ICD-10 update of inactive term Prolapse of vaginal zamorano 03/24/2000 Overview: ICD-10 update of inactive term HYPERTENSION NOS 04/24/2009 Overview: Modified per HTN protocol #16. Major depressive disorder Overview: ICD-10 update of inactive term Menopause 01/25/2012 documented as of this encounter (statuses as of 08/05/2023) Immunizations Name Administration Dates Next Due COVID-19, [...] on file documented as of this encounter Last Filed Vital Signs Vital Sign Reading Time Taken Comments Blood Pressure 128/74 08/04/2023 1:41 PM EST Pulse 73 08/04/2023 1:41 PM EST Temperature 35.8 C (96.4 F) 08/04/2023 1:41 PM ES T Respiratory Rate 18 08/04/2023 1:41 PM EST Oxygen Saturation 94% 08/04/2023 1:41 PM EST Inhaled Oxygen Concentration - - Weight 67.7 kg (149 lb 4.8 oz) 08/04/2023 1:41 P M EST Height - - Body Mass Index 28.21 06/02/2022 2:30 PM EST documented in this encounter Patient Instructions * Patient Instructions* Tiffanie Olsen MD - 08/04/2023 1:58 PM EST Gradually decrease butalbital until off. Decrease to no more that 1/2 once a day for 5d, then 1/2 every 2 day for 5d then 1/2 every three days until you run out of it. documented in this encounter Progress Notes * Tiffanie Olsen MD - 08/04/2023 2:02 PM EST CLINIC NOTES Neurology [facility] [address] [facility] [address] Lori Mcpherson : 1935 NEUROLOGY OUTPATIENT NOTE 08/04/2023 HISTORY: The patient is referred for consultation by Dr. Bowles, who will be receiving a copy of this note. Patient comes today in follow-up of chronic occipital headaches with a diagnosis of occipital neuralgia. I have reviewed her records from [facility] and she was receiving greater occipital nerve blocks last in 2012 as well as 3rd occipital nerve blocks and trigger point injections I believe she also received facet joint injections. She has chronically been taking butalbital but hasbeen told that her insurance will no longer cover it. She has a daily headache Past Medical History: Diagnosis Date ADVANCE DIRECTIVE INFORMATION 08/16/2005 Asthma, allergic Cor pulmonale, chronic (HCC) Depressive disorder, not elsewhere classified DM type 2, goal A1C 7-8 01/26/2012 Dyslipidemia, goal to be determined H/O cataract extraction 2009 [facility] Godoy HTN, goal below 130/80 01/25/2012 PAROXYSMAL SVT 04/02/2002 PROLAPSE OF VAGINAL WALL 03/24/2000 Unspecified urinary incontinence 03/24/2000 Patient Active Problem List Diagnosis Code EXT ASTHMA W-O STAT ASTH J45.909 Type 2 diabetes mellitus with hemoglobin A1c goal of less than 8.0% ([facility]) E11.9 HTN, goal below 140/90 I10 History of PSVT (paroxysmal supraventricular tachycardia) Z86.79 VENTURA (generalized anxiety disorder) F41.1 Gastroesophageal reflux disease K21.9 Dyslipidemia E78.5 Major depressive disorder with single episode, in full remission ([facility]) F32.5 Chronic obstructive pulmonary disease (COPD) ([facility]) J44.9 Cor pulmonale (chronic) ([facility]) I27.81 Type 2 diabetes mellitus with diabetic dermatitis ([facility]) E11.620 Chronic kidney disease, stage 3a ([facility]) N18.31 Past Surgical History: Procedure Laterality Date 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 OD- injection ?steroid Dr. Siddiqi LASER TRABECULOPLASTY 2010? Laser OU multiple times by Dr. Siddiqi LIGATE/CUT OVIDUCT(S) 1969 REMOVE CATARACT, INSERT LENS PROSTH 2009 [facility]-Dr. Godoy REPAIR BLADDER & VAGINA, CYSTOCELE 1979 VAGINAL HYSTERECTOMY 1979 Hysterectomy Vaginal Social History Socioeconomic History Marital status: Spouse name: Not on file Number of children: Not on file Years of education: Not on file Highest education level: Not on file Occupational History Not on file Tobacco Use Smoking status: Never Smokeless tobacco: Never Substance and Sexual Activity Alcohol use: No Drug use: No Sexual activity: Yes Partners: Male control/protection: Surgical Comment: hyst Other Topics Concern Not on file Social History Narrative Not on file Social Determinants of Health Financial Resource Strain: Not on file Food Insecurity: No Food Insecurity (01/25/2019) Hunger Vital Sign Worried About Running Out of Food in the Last Year: Never true Ran Out of Food in the Last Year: Never true Transportation Needs: Not on file Physical Activity: Not on file Stress: Not on file Social Connections: Not on file Intimate Partner Violence: Not on file Housing Stability: Not on file Family History Problem Relation Age of Onset Eye Problems Father had "real bad eyes" not sure what problem was Diabetes Father Cancer Aunt (Unspecified) Cancer Uncle (Unspecified) Diabetes Aunt (Unspecified) Thyroid Disorder Other "a lot of people had that in the family" Stroke Aunt (Unspecified) Heart Disorder Mother ID Hypertension Mother Hypertension Other "runs wild in my family" Eye Problems Other Unsure if FH: AMD, Glaucoma, RD's or Blindess Hypertension Other "couple of my kids have blood pressure and high cholesterol problems" Current Outpatient Medications Medication Sig Dispense Refill OXYGEN 1L HS ANDPRN 0 ASPIRIN 81 MG PO CHEW One pill by mouth once a day with food 0 0 NITROGLYCERIN 0.4 MG SL SUBL 1 Q 5 min as needed with chest pain up to 3 doses in 15 minutes 25 5 Albuterol Sulfate (ALBUTEROL HFA) 108 (90 BASE) MCG/ACT inhaler Inhale 2 Puffs by mouth every 6 hours as needed for Shortness of Breath. 18 g 1 ipratropium-albuterol (COMBIVENT RESPIMAT) 20-100 MCG/ACT Inhaler INHALE 1 PUFF 4 TIMES A DAY NEEDED. 12 g 3 BD Pen Needle Short U/F 31G X 8 MM (Insulin Pen Needle) use twice a day as directed 200 Each 3 Omeprazole 20 MG Oral Capsule Delayed Release (PriLOSEC) TAKE 1 CAPSULE BY MOUTH ONCE DAILY for stomach acid 90 Capsule 1 Budesonide-Formoterol Fumarate 160-4.5 MCG/ACT Inhalation Aerosol (Symbicort) INHALE TWO PUFFS BY MOUTH TWICE DAILY. RINSE MOUTH AFTER EACH USE 30.6 g 1 Escitalopram Oxalate 20 MG Oral Tablet (Lexapro) Take 1 Tablet by mouth in the morning. 90 Tablet 3 Carvedilol 25 MG Oral Tablet (Coreg) TAKE 1 TABLET BY MOUTH TWICE A DAY WITH MEALS (breakfast and supper) 180 Tablet 2 Lisinopril 5 MG Oral Tablet (Prinivil) TAKE ONE TABLET BY MOUTH IN THE MORNING AND ONE BEFORE BEDTIME 180 Tablet 1 hydrALAZINE HCl 10 MG Oral Tablet (Apresoline) take 1 & 1/2 tablets by mouth three times daily 405 Tablet 1 LORazepam 0.5 MG Oral Tablet (Ativan) TAKE 1 TABLET BY MOUTH TWICE DAILY NEEDED 60 Tablet 0 Trulicity 0.75 MG/0.5ML Subcutaneous Solution Pen-injector (Dulaglutide) inject contents of 1 syringe (0.75mg) under the skin once weekly 2 mL 5 Triamcinolone Acetonide 0.1 % External Cream (Aristocort) Apply topically to affected area 2 times a day. Apply to neck and chest 80 g 0 Ipratropium-Albuterol 0.5-2.5 (3) MG/3ML Inhalation Solution (Duoneb) INHALE 1 VIAL VIA NEBULIZER FOUR TIMES DAILY NEEDED FOR SHORTNESS OF BREATH OR WHEEZING 540 mL 1 Ezetimibe 10 MG Oral Tablet (Zetia) TAKE 1 TABLET BY MOUTH AT BEDTIME FOR HIGH CHOLESTEROL 90 Tablet 1 Atorvastatin Calcium 10 MG Oral Tablet (Lipitor) TAKE 1 TABLET BY MOUTH AT BEDTIME FOR HIGH CHOLESTEROL 90 Tablet 1 hydrOXYzine HCl 10 MG Oral Tablet (Atarax) TAKE 1 TABLET BY MOUTH THREE TIMES DAILY only NEEDED 100 Tablet 1 Gfdiiyyhmb-SHRZ-Sqfdxrve 50-325-40 MG Oral Tablet (Fioricet) TAKE ONE OR TWO TABLETS BY MOUTH EVERYFOUR HOURS NEEDED, NO MORE THAN 6 TABLETS A DAY 30 Tablet 0 HYDROcodone-Acetaminophen 5-325 MG Oral Tablet Take 1 Tablet by mouth every 8 hours as needed for Pain, Mild. 90 Tablet 0 Gabapentin 100 MG Oral Capsule (Neurontin) 1 at bedtime for 1 week, if ineffective may increase to 1 twice a day 60 Capsule 5 No current facility-administered medications for this visit. Review of patient's allergies indicates: No Known Allergies Results for orders placed or performed in visit on 05/22/12 CBC Result Value Ref Range WBC 9.03 4.00 - 10.80 K/uL RBC 4.89 3.85 - 5.15 M/uL HGB 14.4 12.0 - 14.5 g/dL HCT 40.5 36.0 - 44.5 % MCV 82.8 81.5 - 97.5 fL MCH 29.4 27.0 - 34.0 pg MCHC 35.6 32.0 - 36.0 g/dL RDW 12.6 11.5 - 15.5 % PLT 204 140 - 400 K/uL MPV 9.5 6.6 - 11.1 fL Results for orders placed or performed in visit on 10/04/22 BASIC METABOLIC PANEL Result Value Ref Range BUN 22 (H) 6 - 20 mg/dL Creatinine 1.0 0.5 - 1.0 mg/dL Estimated Glomerular Filtration Rate 55 (L) >=60 mL/min Sodium 139 135 - 146 mmol/L Potassium 5.3 (H) 3.5 - 5.1 mmol/L Chloride 103 98 - 107 mmol/L CO2 28 22 - 32 mmol/L Anion Gap 8 7 - 15 mmol/L Glucose 185 (H) 70 - 120 mg/dL Calcium 9.5 8.4 - 10.2 mg/dL Results for orders placed or performed in visit on 07/30/09 LIPID PANEL Result Value Ref Range HOURS FASTING 12 hours Triglycerides 389 (H) 60 - 245 mg/dL Cholesterol 171 <200 mg/dL HDL Cholesterol 38 (L) 40 - 59 mg/dL Cholesterol-HDL Ratio 4.5 LDL Cholesterol 55 0 - 100 mg/dL Results for orders placed or performed in visit on 04/04/23 LIPID PANEL WITH DIRECT LDL IF TG IS HIGH Result Value Ref Range Triglycerides 310 (H) <=174 mg/dL Cholesterol 138 <200 mg/dL HDL Cholesterol 35 (L) >49 mg/dL Non-HDL Cholesterol 103 <=159 mg/dL Lab Results Component Value Date/Time HEMOGLOBIN A1C - [facility] 6.1 (H) 04/04/2023 01:52 PM HEMOGLOBIN A1C - [facility] 6.5 (H) 10/01/2022 02:50 PM HEMOGLOBIN A1C - [facility] 7.2 (H) 06/02/2022 03:26 PM HEMOGLOBIN A1C - [facility] 7.2 (H) 01/08/2020 10:47 AM HEMOGLOBIN A1C - [facility] 8.3 (H) 05/29/2019 02:51 PM HEMOGLOBIN A1C - [facility] 7.5 (H) 01/25/2019 02:17 PM Lab Results Component Value Date/Time TSH - [facility] 1.31 05/22/2012 03:52 PM TSH - [facility] 1.26 07/30/2009 01:35 PM TSH - [facility] 1.92 04/28/2009 09:40 AM No results found for: "NANCY" Results for orders placed or performed in visit on 10/01/22 VITAMIN B12 Result Value Ref Range Vitamin B12 >2,000 (H) 232 - 1,245 pg/mL No results found for: "QEOO80GPY6" No results found for: "OMIF53YEQ0" No results found for: "[id number]" No results found for: "25OHVITAMIND" Vitamin D Level Interpretation deficient: <20 ng/ml insufficient: 20-30 ng/ml normal: 31-100 ng/ml REVIEW OF SYSTEMS: As above PHYSICAL EXAM: BP 128/74 (BP Site: Right Arm, BP Position: Sitting, BP Cuff Size: Regular) | Pulse 73 | Temp 35.8 C (96.4 F) (Tympanic) | Resp 18 | Wt 67.7 kg (149 lb 4.8 oz) | SpO2 94% | BMI 28.21 kg/m | BSA 1.71 m Patient is awake and alert speech and language are normal no significant tenderness is noted over the occipital region No significant pretibial edema is noted IMPRESSION: Occipital neuralgia we discussed potentially doing an occipital nerve block but she would elect to try medications 1st. Cautiously try gabapentin monitoring for fluid retention weight gain fatigue instability. Reach out to me if it is ineffective or not tolerated increase only as neededand as tolerated Return in 8 weeks Tiffanie Olsen MD 08/04/2023 2:03 PM documented in this encounter Nursing Notes * Sofía Russell LPN - 08/04/2023 1:41 PM EST Patient verified identity by spelling of last name and date. Chief Complaint Patient presents with Return Neuro documented in this encounter Plan of Treatment Upcoming Encounters Date Type Department Care Team (Late st Contact Info) Description 09/01/2023 1:30 PM EDT Office Visit Cardiology, [facility] [address] [place] [address] Lynette Christian CRNP [address] [place] [address] 10/04/2023 1:00 PM EDT Office Visit [address] [place] [id number] October, Harman Steen MD [address] [place] [address] Health Maintenance Due Date Last Done Comments Alpha-1 Antitrypsin 08/24/1953 DTaP,Tdap,and Td Vaccines (1 - Tdap) 01/07/2009 01/06/2009, 01/03/1995, 01/03/1995 CKD HGB USE SMARTSET 29351 04/27/201804/27, 05/22/2012, 05/17/2011, Additional history exists Mammogram [...] Additional history exists CKD PHOS USE SMARTSET 43210 10/02/2023 10/01/2022 Diabetic Foot Exam 10/02/2023 10/01/2022, [...] as of this encounter Visit Diagnoses Diagnosis Occipital neuralgia, unspecified laterality- Primary documented in this encounter Care Teams Avionics Engineer Relationship Specialty Start Date End Date Jose Bowles MD [address] [place] [address] PCP - General Family Medicine 11/04/16 documented as of this encounter
--- OUTSIDE RECORDS SUMMARY | 2023-09-24 21:21 | External Medical Summary | Summary of Care ---
Author Name Unknown Organization [facility] Address [address] [facility] [place] [address] Phone [phone] Care Team Providers Care Nuclear Medical Tech Name Role Phone Freddy Fitzpatrick MD Primary Care Provider [phone]- [phone] Reason for Visit * Reason Onset Date Comments Medication Refill 07/20/2023 Encounter Details Date Type Department Care Team (Late st Contact Info) Description 07/20/2023 Refill [facility] [address] [place] [facility] [place] [address] Freddy Fitzpatrick MD [address] [place] [address] Cervicalgia Allergies No known active allergiesdocumented as of this encounter (statuses as of 07/21/2023) Medications Medication Sig Dispensed Refills Start Date End Date Status OXYGEN 1L HS ANDPRN 0 01/20/1999 Active ASPIRIN 81 MG PO CHEWIndications:DM type 2, goal A1c below 7 One pill by mouth once a day with food 0 0 07/31/2007 Active NITROGLYCERIN 0.4 MG SL SUBLIndications:Ob servation for suspected coronary artery disease (CAD) 1 Q 5 min as needed with chest pain up to 3 doses in 15 minutes 25 5 04/16/2008 Active Albuterol Sulfate (ALBUTEROL HFA) 108 (90 BASE) MCG/ACT inhaler Inhale 2 Puffs by mouth every 6 hours as needed for Shortness of Breath. 18 g 1 06/27/2019 Active ipratropium-albute rol (COMBIVENT RESPIMAT) 20-100 MCG/ACT Inhaler INHALE 1 PUFF 4 TIMES A DAY NEEDED. 12 g 3 07/24/2019 Active BD Pen Needle Short U/F 31G X 8 MM (Insulin Pen Needle)Indications :Type 2 diabetes mellitus with hemoglobin A1c goal of less than 8.0% ([facility]) use twice a day as directed 200 Each 3 12/03/2021 Active Omeprazole 20 MG Oral Capsule Delayed Release (PriLOSEC) TAKE 1 CAPSULE BY MOUTH ONCE DAILY for stomach acid 90 Capsule 1 01/29/2022 Active Budesonide-Formote rol Fumarate 160-4.5 MCG/ACT Inhalation Aerosol (Symbicort)Indicat ions:Asthma, allergic INHALE TWO PUFFS BY MOUTH TWICE DAILY. RINSE MOUTH AFTER EACH USE 30.6 g 1 09/27/2022 Active Escitalopram Oxalate 20 MG Oral Tablet (Lexapro)Indicatio ns:Generalized anxiety disorder Take 1 Tablet by mouth [...] 03/09/2023 Active LORazepam 0.5 MG Oral Tablet (Ativan)Indication s:Generalized anxiety disorder TAKE 1 TABLET BY MOUTH TWICE DAILY NEEDED 60 Tablet 0 04/25/2023 Active Trulicity 0.75 MG/0.5ML Subcutaneous Solution Pen-injector (Dulaglutide)Indic ations:Type 2 diabetes mellitus with hemoglobin A1c goal of less than 8.0% (HCC) inject contents of 1 syringe (0.75mg) under the skin once weekly 2 mL 5 05/06/2023 Active Triamcinolone Acetonide 0.1 % External Cream (Aristocort)Indica tions:Dermatitis Apply topically to affected area 2 times a day. Apply to neck and chest 80 g 0 05/13/2023 Active Ipratropium-Albute rol 0.5-2.5 (3) MG/3ML Inhalation Solution (Duoneb)Indication s:Extrinsic asthma without complication, unspecified asthma severity, unspecified whether persistent INHALE 1 VIAL VIA NEBULIZER FOUR TIMES DAILY NEEDED FOR SHORTNESS OF BREATH OR WHEEZING 540 mL 1 05/13/2023 Active Ezetimibe 10 MG Oral Tablet (Zetia)Indications :Dyslipidemia TAKE 1 TABLET BY MOUTH AT BEDTIME FOR HIGH CHOLESTEROL 90 Tablet 1 05/23/2023 Active Atorvastatin Calcium 10 MG Oral Tablet (Lipitor) TAKE 1 TABLET BY MOUTH AT BEDTIME FOR HIGH CHOLESTEROL 90 Tablet 1 05/23/2023 Active hydrOXYzine HCl 10 MG Oral Tablet (Atarax)Indication s:Major depressive disorder TAKE 1 TABLET BY MOUTH THREE TIMES DAILY only NEEDED 100 Tablet 1 06/21/2023 Active Jgksriauur-VGSC-Wr ffeine 50-325-40 MG Oral Tablet (Fioricet)Indicati ons:Episodic tension-type headache, not intractable TAKE ONE OR TWO TABLETS BY MOUTH EVERY FOUR HOURS NEEDED, NO MORE THAN 6 TABLETS A DAY 30 Tablet 0 07/13/2023 Active HYDROcodone-Acetam inophen 5-325 MG Oral TabletIndications: Cervicalgia Take 1 Tablet by mouth every 8 hours as needed for Pain, Mild. 90 Tablet 0 07/21/2023 Active HYDROcodone-Acetam inophen 5-325 MG Oral TabletIndications: Cervicalgia Take 1 Tablet by mouth every 8 hours as needed for Pain, Mild. 90 Tablet 0 05/23/2023 4 Discontinue d(Refill) documented as of this encounter (statuses as of 07/21/2023) Active Problems Problem Noted Date Diagnosed Date [...] as of this encounter (statuses as of 07/21/2023) Resolved Problems Problem Noted Date Diagnosed Date [...] as of this encounter (statuses as of 07/21/2023) Immunizations Name Administration Dates Next Due COVID-19, [...] Telephone Encounter - Freddy Fitzpatrick MD - 07/21/2023 11:43 AM ESTSigned Prescriptions: Disp Refills HYDROcodone-Acetaminophen 5-325 MG Oral Ta*90 Tab*0 Sig: Take 1 Tablet by mouth every 8 hours as needed for Pain, Mild.Authorizing Provider: FREDDY FITZPATRICK----- * Telephone Encounter - Smith Reese [facility] - 07/21/2023 11:19 AM ESTPending Prescriptions: Disp Refills HYDROcodone-Acetaminophen 5-325 MG Oral Ta*90 Tab*0 Sig: Take 1 Tablet by mouth every 8 hours as needed for Pain, Mild. * Telephone Encounter - Smith Reese [facility] - 07/21/2023 11:15 AM EST I have reviewed the patients controlled substance dispensing history in the Prescription Drug Monitoring Program in compliance with the [facility] regulations before prescribing a controlled substance. PDMP checked on 07/21/2023. Pending Prescriptions: Disp Refills HYDROcodone-Acetaminophen 5-325 MG Oral T*90 Tab*0 Sig: Take 1 Tablet by mouth every 8 hours as needed for Pain, Mild. Last Visit: 04/04/2023 (in office), 07/01/2020 (telemedicine) Next Visit: 10/04/2023 Date medication was last filled: 05-23-23 Date medication is due for refill: 06-21-23 Pharmacy: [facility] [address] [place] [address] Is this request for a controlled substance? Yes and Urine Drug Screen Not completed Toxicology results: No results found. However, due to the size of the patient record, not all encounters were searched.Please check Results Review for a complete set of results. Please approve if appropriate. Thanks, Smith Reese, [place].Ph. Clinical Pharmacist [facility] [phone] ext [phone] 07/21/2023,11:15 AM documented in this encounter Plan of Treatment Upcoming Encounters Date Type Department Care Team (Late st Contact Info) Description 08/04/2023 2:20 PM EST Office Visit Neurology [facility] [address] [facility] [place] [address] Tiffanie Olsen MD [address] [facility] [place] [address] 09/07/2023 1:00 PM EDT Office Visit Cardiology, [facility] [address] [place] [address] Lynette Christian CRNP [address] [place] [address] 10/04/2023 1:00 PM EDT Office Visit [facility] [address] [place] [id number] OctoberHarman MD [address], [place] [id number] Health Maintenance Due Date Last Done Comments Alpha-1 Antitrypsin 08/24/1953 Hepatitis B (1 of 3 - Risk 3-dose series) 1997 DTaP,Tdap,and Td Vaccines (1 - Tdap) 01/07/2009 01/06/2009, 01/03/1995, 01/03/1995 CKD HGB USE SMARTSET 34129 04/27/201804/27, 05/22/2012, 05/17/2011, Additional history exists Mammogram [...] Additional history exists CKD PHOS USE SMARTSET 62173 10/02/2023 10/01/2022 Diabetic Foot Exam 10/02/2023 10/01/2022, [...] Cervicalgia documented in this encounter Care Teams Nuclear Medical Tech Relationship Specialty Start Date End Date Freddy Fitzpatrick MD [address] [place] [address] PCP - General Family Medicine 11/04/16 documented as of this encounter
--- OUTSIDE RECORDS SUMMARY | 2023-09-24 21:21 | External Medical Summary | Summary of Care ---
Author Name Unknown Organization [facility] Address [address] [facility] [address] Phone [phone] Care Team Providers Care Mail Officer Name Role Phone Jose Bowles MD Primary Care Provider +1- [phone] Encounter Details Date Type Department Care Team (Late st Contact Info) Description 07/15/2023 Telephone [facility] [address] [place] [address] Jose Bowles MD [address] [place] [address] Allergies No known active allergiesdocumented as of this encounter (statuses as of 07/29/2023) Medications Medication Sig Dispensed Refills Start Date [...] of less than 8.0% ([facility]) use twice a day as [...] only NEEDED 100 Tablet 1 06/21/2023 Active Maylowobrr-FUCP-Qii feine 50-325-40 MG Oral Tablet (Fioricet)Indicatio ns:Episodic tension-type headache, not intractable TAKE ONE OR TWO TABLETS BY MOUTH EVERY FOUR HOURS NEEDED, NO MORE THAN 6 TABLETS A DAY 30 Tablet 0 07/13/2023 Active documented as of this encounter (statuses as of 07/29/2023) Active Problems Problem Noted Date Diagnosed Date [...] as of this encounter (statuses as of 07/29/2023) Resolved Problems Problem Noted Date Diagnosed Date [...] as of this encounter (statuses as of 07/29/2023) Immunizations Name Administration Dates Next Due COVID-19, [...] encounter Miscellaneous Notes * Telephone Encounter - Clair De Leon LPN - 07/15/2023 4:07 PM EST PACE form received for Kqljqslqfq-VGCR-Viswauvp 50-325-40 Placed on provider's desk * Telephone Encounter - Nicole Medina OSA - 07/15/2023 12:37 PM EST 07/15/23 Rec paperwork from [facility] for pt regarding a script. Paperwork placed in provider's mail bin. documented in this encounter Plan of Treatment Upcoming Encounters Date Type Department Care Team (Late st Contact Info) Description 08/04/2023 2:20 PM EST Office Visit Neurology [facility] [address] [facility] [place] [address] Tiffanie Olsen MD [address] [facility] [place] [address] 10/04/2023 1:00 PM EDT Office Visit [facility] [address] [place] [address] October, Harman Steen MD [address] [place] [address] Health Maintenance Due Date Last Done Comments Alpha-1 Antitrypsin 08/24/1953 DTaP,Tdap,and Td Vaccines (1 - Tdap) 01/07/2009 01/06/2009, 01/03/1995, 01/03/1995 CKD HGB USE SMARTSET 06791 04/27/201804/27, 05/22/2012, 05/17/2011, Additional history exists Mammogram [...] Additional history exists CKD PHOS USE SMARTSET 63305 10/02/2023 10/01/2022 Diabetic Foot Exam 10/02/2023 10/01/2022, [...] filedocumented as of this encounter Care Teams Mail Officer Relationship Specialty Start Date End Date Jose Bowles MD [address] [place] [address] PCP - General Family Medicine 11/04/16 documented as of this encounter
--- OUTSIDE RECORDS SUMMARY | 2023-09-24 21:21 | External Medical Summary | Summary of Care ---
Author Name Unknown Organization [facility] Address [address] [place] [place] [place] [address] Phone [phone] Care Team Providers Care Offset Press Operator Name Role Phone Freddy Fitzpatrick MD Primary Care Provider +1- [phone] Reason for Visit * Reason Onset Date Comments Medication Refill 07/12/2023 Encounter Details Date Type Department Care Team (Late st Contact Info) Description 07/12/2023 Refill [facility] [address] [place] [facility] [place] [address] Freddy Fitzpatrick MD [address] [place] [address] Episodic tension-type headache, not intractable Allergies No known active allergiesdocumented as of this encounter (statuses as of 07/13/2023) Medications Medication Sig Dispensed Refills Start Date [...] hemoglobin A1c goal of less than 8.0% ([facility]) inject contents of 1 syringe [...] OR WHEEZING 540 mL 1 05/13/2023 Active HYDROcodone-Acetam inophen 5-325 MG Oral TabletIndications: Cervicalgia Take 1 Tablet by mouth every 8 hours as needed for Pain, Mild. 90 Tablet 0 05/23/2023 Active Ezetimibe 10 MG Oral Tablet (Zetia)Indications [...] only NEEDED 100 Tablet 1 06/21/2023 Active Bqvgazmdux-JOKV-Su ffeine 50-325-40 MG Oral Tablet (Fioricet)Indicati ons:Episodic tension-type headache, not intractable TAKE ONE OR TWO TABLETS BY MOUTH EVERY FOUR HOURS NEEDED, NO MORE THAN 6 TABLETS A DAY 30 Tablet 0 07/13/2023 Active Ikwtzzwikz-IVTJ-Aa ffeine 50-325-40 MG Oral Tablet (Fioricet)Indicati ons:Episodic tension-type headache, not intractable TAKE ONE OR TWO TABLETS BY MOUTH EVERY FOUR HOURS NEEDED, NO MORE THAN 6 TABLETS A DAY 30 Tablet 0 06/15/2023 4 Discontinue d(Refill) documented as of this encounter (statuses as of 07/13/2023) Active Problems Problem Noted Date Diagnosed Date [...] as of this encounter (statuses as of 07/13/2023) Resolved Problems Problem Noted Date Diagnosed Date [...] as of this encounter (statuses as of 07/13/2023) Immunizations Name Administration Dates Next Due COVID-19, [...] Telephone Encounter - Freddy Fitzpatrick MD - 07/13/2023 2:08 PM ESTSigned Prescriptions: Disp Refills Sywvtztzui-HKEU-Bfbpavxd 50-325-40 MG Oral*30 Tab*0 Sig: TAKE ONE OR TWO TABLETS BY MOUTH EVERY FOUR HOURS NEEDED, NO MORE THAN 6 TABLETS A DAYAuthorizing Provider: FREDDY FITZPATRICK * Telephone Encounter - Hanane Gandhi [facility] - 07/13/2023 11:39 AM ESTPending Prescriptions: Disp Refills Zazqzupiuu-NURR-Ljxhzblb 50-325-40 MG Oral*30 Tab*0 Sig: TAKE ONE OR TWO TABLETS BY MOUTH EVERY FOUR HOURS NEEDED, NO MORE THAN 6 TABLETS A DAY * Telephone Encounter - Hanane Gandhi [facility] - 07/13/2023 11:38 AM EST I have reviewed the patients controlled substance dispensing history in the Prescription Drug Monitoring Program in compliance with the [facility] regulations before prescribing a controlled substance. PDMP checked on 07/13/2023. Pending Prescriptions: Disp Refills Xofwgakflx-DJNW-Pwqunqtw 50-325-40 MG Ora*30 Tab*0 Sig: TAKE ONE OR TWO TABLETS BY MOUTH EVERY FOUR HOURS NEEDED, NO MORE THAN 6 TABLETS A DAY Last Visit: 04/04/2023 (in office), 07/01/2020 (telemedicine) Next Visit: 10/04/2023 Date medication was last filled: 06/16/23 Date medication is due for refill: 06/20/23 Pharmacy: [id number] Is this request for a controlled substance? Yes and Urine Drug Screen Not completed Toxicology results: No results found. However, due to the size of the patient record, not all encounters were searched.Please check Results Review for a complete set of results. Please approve if appropriate. Thanks, Hanane Gandhi, PharmD Clinical Pharmacist [facility] ([facility]) [phone] 07/13/2023 11:39 AM documented in this encounter Plan of Treatment Upcoming Encounters Date Type Department Care Team (Late st Contact Info) Description 08/04/2023 2:20 PM EST Office Visit Neurology [facility] [address] [facility] [place] [address] Tiffanie Olsen MD [address] [facility] [place] [address] 09/07/2023 1:00 PM EDT Office Visit [facility], [facility] [address] [facility] [address] Lynette Christian CRNP [address] [place] [address] 10/04/2023 1:00 PM EDT Office Visit [facility] [address] [facility] [id number] OctoberHarman MD [address] [place], [place] [id number] Health Maintenance Due Date Last Done Comments Alpha-1 Antitrypsin 08/24/1953 Hepatitis B (1 of 3 - Risk 3-dose series) 1997 DTaP,Tdap,and Td Vaccines (1 - Tdap) 01/07/2009 01/06/2009, 01/03/1995, 01/03/1995 CKD HGB USE SMARTSET 80824 04/27/201804/27, 05/22/2012, 05/17/2011, Additional history exists Mammogram [...] Additional history exists CKD PHOS USE SMARTSET 50488 10/02/2023 10/01/2022 Diabetic Foot Exam 10/02/2023 10/01/2022, [...] as of this encounter Visit Diagnoses Diagnosis Episodic tension-type headache, not intractable Episodic tension type headache documented in this encounter Care Teams Offset Press Operator Relationship Specialty Start Date End Date Freddy Fitzpatrick MD [address] [place] [address] PCP - General Family Medicine 11/04/16 documented as of this encounter
--- OUTSIDE RECORDS SUMMARY | 2023-09-24 21:21 | External Medical Summary | Summary of Care ---
Author Name Unknown Organization [facility] Address [address] [place] [facility] [place] [address] Phone [phone] Care Team Providers Care Operations Plant Attendant Name Role Phone Freddy Fitzpatrick MD Primary Care Provider +1- [phone] Reason for Visit * Reason Onset Date Comments Medication Refill 08/19/2023 Encounter Details Date Type Department Care Team (Late st Contact Info) Description 08/19/2023 Refill [facility] [address] [place] [facility] [place] [address] Freddy Fitzpatrick MD [address] [place] [address] Dermatitis Allergies No known active allergiesdocumented as of this encounter (statuses as of 08/22/2023) Medications Medication Sig Dispensed Refills Start Date [...] A1c goal of less than 8.0% ([facility]) use twice a day as directed 200 [...] A1c goal of less than 8.0% ([facility]) inject contents of 1 syringe (0.75mg) under the skin once weekly 2 mL 5 05/06/2023 Active Ipratropium-Albute rol 0.5-2.5 (3) MG/3ML Inhalation [...] only NEEDED 100 Tablet 1 06/21/2023 Active Gdsuzolfmw-QXEZ-Vb ffeine 50-325-40 MG Oral Tablet (Fioricet)Indicati ons:Episodic [...] and chest 80 g 0 08/22/2023 Active Triamcinolone Acetonide 0.1 % External Cream (Aristocort)Indica tions:Dermatitis Apply topically to affected area 2 times a day. Apply to neck and chest 80 g 0 05/13/2023 4 Discontinue d(Refill) documented as of this encounter (statuses as of 08/22/2023) Active Problems Problem Noted Date Diagnosed Date [...] as of this encounter (statuses as of 08/22/2023) Resolved Problems Problem Noted Date Diagnosed Date [...] as of this encounter (statuses as of 08/22/2023) Immunizations Name Administration Dates Next Due COVID-19, [...] Telephone Encounter - Freddy Fitzpatrick MD - 08/22/2023 9:17 AM EDTSigned Prescriptions: Disp Refills Triamcinolone Acetonide 0.1 % External Cre*80 g 0 Sig: Apply topically to affected area 2 times a day. Apply to neck and chestAuthorizing Provider: FREDDY FITZPATRICK * Telephone Encounter - Michelle Maurer LPN - 08/22/2023 8:43 AM EDTPending Prescriptions: Disp Refills Triamcinolone Acetonide 0.1 % External Cre*80 g 0 Sig: Apply topically to affected area 2 times a day. Apply to neck and chest * Telephone Encounter - Bhargav Velasquez - 08/20/2023 9:23 PM EDTPending Prescriptions: Disp Refills Triamcinolone Acetonide 0.1 % External Cre*80 g 0 Sig: Apply topically to affected area 2 times a day. Apply to neck and chest documented in this encounter Plan of Treatment Upcoming Encounters Date Type Department Care Team (Late st Contact Info) Description 09/01/2023 1:30 PM EDT Office Visit Cardiology, [facility] [address] [place] [address] Lynette Christian CRNP [address] [place] [address] 10/04/2023 1:00 PM EDT Office Visit [facility] [address] [place] [address] October, Harman Steen MD [address], [place] [id number] Health Maintenance Due Date Last Done Comments Alpha-1 Antitrypsin 08/24/1953 DTaP,Tdap,and Td Vaccines (1 - Tdap) 01/07/2009 01/06/2009, 01/03/1995, 01/03/1995 CKD HGB USE SMARTSET 26071 04/27/201804/27, 05/22/2012, 05/17/2011, Additional history exists Mammogram 08/26/2019 08/25/2018, 01/04, 01/19/2011 (Done elsewhere), Additional history exists Depression Screening 01/26/2020 01/25/2019 Albumin/Creatinine Ratio 10/29/2022 022, 10/21/2020, 01/08/2020, Additional history exists Influenza Vaccine (FLU shot) (#1) 2023 03/13/2022, 04/08/2021, 03/08/2019, Additional history exists Diabetic Eye Exam 06/04/2023 06/04/2022, , 06/03/2020, Additional history exists B-12 10/02/2023 10/01/2022, 04/07, 10/21/2020, Additional history exists CKD PHOS USE SMARTSET 12915 10/02/2023 10/01/2022 Diabetic Foot Exam 10/02/2023 10/01/2022, [...] as of this encounter Visit Diagnoses Diagnosis Dermatitis Contact dermatitis and other eczema, due to unspecified cause documented in this encounter Care Teams Operations Plant Attendant Relationship Specialty Start Date End Date Freddy Fitzpatrick MD [address] [place] [address] PCP - General Family Medicine 11/04/16 documented as of this encounter
--- OUTSIDE RECORDS SUMMARY | 2023-09-24 21:21 | External Medical Summary | Summary of Care ---
Author Name Unknown Organization [facility] Address [address] [place] [address] Phone [phone] Care Team Providers Care Deputy United [place] Marshal Name Role Phone Jose Bowles MD Primary Care Provider +1- [phone] Reason for Visit * Reason Onset Date Comments Pre Cert/Prior Auth 07/21/2023 Encounter Details Date Type Department Care Team (Late st Contact Info) Description 07/21/2023 Telephone [facility] [address] [place] [address] Jose Bowles MD [address] [place] [address] Pre Cert/Prior Auth Allergies No [...] hemoglobin A1c goal of less than 8.0% ([facility]) use twice a day as directed 200 [...] only NEEDED 100 Tablet 1 06/21/2023 Active Kidzovfudp-UCFY-Jvh feine 50-325-40 MG Oral Tablet (Fioricet)Indicatio ns:Episodic [...] 3:34 PM EST Started prior auth with [facility] [id number] For Hydroxyzine HCI 10 mg documented in this encounter Plan of Treatment Upcoming Encounters Date Type Department Care Team (Late st Contact Info) Description 08/04/2023 2:20 PM EST [facility] [place] [address] [facility] [place] [address] Tiffanie Olsen MD [address] [facility] [place] [address] 09/07/2023 1:00 PM EDT Office Visit Cardiology, [facility] [address] [facility] [place] [address] AnahiLynette baum CRNP [address] [place] [address] 10/04/2023 1:00 PM EDT Office Visit Family [facility] [address] [place] [address] October, Harman Steen MD [address] [place] [address] Health Maintenance Due Date Last Done Comments Alpha-1 Antitrypsin 08/24/1953 Hepatitis B (1 of 3 - Risk 3-dose series) 1997 DTaP,Tdap,and Td Vaccines (1 - Tdap) 01/07/2009 01/06/2009, 01/03/1995, 01/03/1995 CKD HGB USE SMARTSET 69745 04/27/201804/27, 05/22/2012, 05/17/2011, Additional history exists Mammogram [...] Additional history exists CKD PHOS USE SMARTSET 11612 10/02/2023 10/01/2022 Diabetic Foot Exam 10/02/2023 10/01/2022, [...] filedocumented as of this encounter Care Teams Deputy United [place] Marshal Relationship Specialty Start Date End Date Jose Bowles MD [address] [place] [address] PCP - General Family Medicine 11/04/16 documented as of this encounter
--- OUTSIDE RECORDS SUMMARY | 2023-09-24 21:22 | External Medical Summary | Summary of Care ---
Author Name Unknown Organization [facility] Address [address] [place] [address] Phone [phone] Care Team Providers Care Call Or Contact Centre Team Leader Name Role Phone Jose Fitzpatrick MD Primary Care Provider +1- [phone] Reason for Visit * Reason Comments eRx-Medication Refill Encounter Details Date Type Department Care Team (Late st Contact Info) Description 06/20/2023 Refill [facility] [address] [place] [address] Jose Fitzpatrick MD [address] [place] [address] Major depressive disorder Allergies No known active allergiesdocumented as of this encounter (statuses as of 06/21/2023) Medications Medication Sig Dispensed Refills Start Date [...] hemoglobin A1c goal of less than 8.0% ([facility]) use twice a day as directed [...] hemoglobin A1c goal of less than 8.0% ([facility]) inject contents of 1 syringe (0.75mg) under the skin once weekly 2 mL 5 05/06/2023 Active Triamcinolone Acetonide 0.1 % External Cream (Aristocort)Indic ations:Dermatitis Apply topically to affected area 2 times a day. Apply to neck and chest 80 g 0 05/13/2023 Active Ipratropium-Albut joselo 0.5-2.5 (3) MG/3ML Inhalation Solution (Duoneb)Indicatio ns:Extrinsic asthma without complication, unspecified asthma severity, unspecified whether persistent INHALE 1 VIAL VIA NEBULIZER FOUR TIMES DAILY NEEDED FOR SHORTNESS OF BREATH OR WHEEZING 540 mL 1 05/13/2023 Active HYDROcodone-Aceta minophen 5-325 MG Oral TabletIndications :Cervicalgia Take 1 Tablet by mouth every 8 hours as needed for Pain, Mild. 90 Tablet 0 05/23/2023 Active Ezetimibe 10 MG Oral Tablet (Zetia)Indication s:Dyslipidemia TAKE 1 TABLET BY MOUTH AT BEDTIME FOR HIGH CHOLESTEROL 90 Tablet 1 05/23/2023 Active Atorvastatin Calcium 10 MG Oral Tablet (Lipitor) TAKE 1 TABLET BY MOUTH AT BEDTIME FOR HIGH CHOLESTEROL 90 Tablet 1 05/23/2023 Active Dwlrswgsai-XRTO-H affeine 50-325-40 MG Oral Tablet (Fioricet)Indicat ions:Episodic tension-type headache, not intractable TAKE ONE OR TWO TABLETS BY MOUTH EVERY FOUR HOURS NEEDED, NO MORE THAN 6 TABLETS A DAY 30 Tablet 0 06/15/2023 Active hydrOXYzine HCl 10 MG Oral Tablet (Atarax)Indicatio ns:Major depressive disorder TAKE 1 TABLET BY MOUTH THREE TIMES DAILY only NEEDED 100 Tablet 1 06/21/2023 Active hydrOXYzine HCl 10 MG Oral Tablet (Atarax)Indicatio ns:Major depressive disorder TAKE 1 TABLET BY MOUTH THREE TIMES DAILY only NEEDED 100 Tablet 1 04/10/2023 06/21/19 24 Discontinued documented as of this encounter (statuses as of 06/21/2023) Active Problems Problem Noted Date Diagnosed Date [...] as of this encounter (statuses as of 06/21/2023) Resolved Problems Problem Noted Date Diagnosed Date [...] as of this encounter (statuses as of 06/21/2023) Immunizations Name Administration Dates Next Due COVID-19, [...] Telephone Encounter - Jose Fitzpatrick MD - 06/21/2023 2:32 PM ESTSigned Prescriptions: Disp Refills hydrOXYzine HCl 10 MG Oral Tablet (Atarax) 100 Ta*1 Sig: TAKE 1 TABLET BY MOUTH THREE TIMES DAILY only NEEDEDAuthorizing Provider: JOSE FITZPATRICK * Telephone Encounter - Claribel Aguiar [facility] - 06/21/2023 2:02 PM ESTPending Prescriptions: Disp Refills hydrOXYzine HCl 10 MG Oral Tablet (Atarax) 100 Ta*1 Sig: TAKE 1 TABLET BY MOUTH THREE TIMES DAILY only NEEDED * Telephone Encounter - Claribel Aguiar [facility] - 06/21/2023 2:02 PM EST Did you pend patient's preferred pharmacy and medication before forwarding?yes Pharmacy: [id number] [address] [facility] Pending Prescriptions: Disp Refills hydrOXYzine HCl 10 MG Oral Tablet (Atarax*100 Ta*1 Sig: TAKE 1 TABLET BY MOUTH THREE TIMES DAILY only NEEDED Last Visit: 04/04/2023 (in office), 07/01/2020 (telemedicine) Next Visit: 10/04/2023 If no future appointments scheduled, and last appointment is greater than a year ago, please schedule patient for a follow-up appointment Last date the medication was ordered: 04/10/23 Is this request for a controlled substance?No [...] 08/04/2023 2:20 PM EST Office Visit Neurology [facility] [address] [place] [address] Tiffanie Olsen MD [address] [facility] [place] [address] 09/07/2023 1:00 PM EDT Office Visit Cardiology, [facility] [address] [facility] [place] [address] Lynette Christian CRNP [address] [facility] [address] 10/04/2023 1:00 PM EDT Office Visit [facility] [address] [facility] [id number] Harman Rodriguez MD [address] [place] [address] Health Maintenance Due Date Last Done Comments Alpha-1 Antitrypsin 08/24/1953 Hepatitis B (1 of 3 - Risk 3-dose series) 1997 DTaP,Tdap,and Td Vaccines (1 - Tdap) 01/07/2009 01/06/2009, 01/03/1995, 01/03/1995 CKD HGB USE SMARTSET 38342 04/27/201804/27, 05/22/2012, 05/17/2011, Additional history exists Mammogram [...] Additional history exists CKD PHOS USE SMARTSET 69890 10/02/2023 10/01/2022 Diabetic Foot Exam 10/02/2023 10/01/2022, [...] unspecified documented in this encounter Care Teams Call Or Contact Centre Team Leader Relationship Specialty Start Date End Date Jose Fitzpatrick MD [address] [place] [address] PCP - General Family Medicine 11/04/16 documented as of this encounter
--- OUTSIDE RECORDS SUMMARY | 2023-09-24 21:22 | External Medical Summary | Summary of Care ---
Author Name Unknown Organization [facility] Address [address] [place] [place] [address] Phone [phone] Care Team Providers Care Blender Machine Operator Name Role Phone Freddy Fitzpatrick MD Primary Care Provider +1- [phone] Reason for Visit * Reason Onset Date Comments Medication Refill 05/12/2023 Encounter Details Date Type Department Care Team (Late st Contact Info) Description 05/12/2023 Refill [facility] [address] [facility] [place] [address] Freddy Fitzpatrick MD [address] [place] [address] Dermatitis; Extrinsic asthma without complication, unspecified asthma severity, unspecified whether persistent Allergies No known active allergiesdocumented as of this encounter (statuses as of 05/13/2023) Medications Medication Sig Dispensed Refills Start Date [...] the morning. 90 Tablet 3 10/01/2022 Active Ezetimibe 10 MG Oral Tablet (Zetia)Indications :Dyslipidemia TAKE 1 TABLET BY MOUTH AT BEDTIME for high cholesterol 90 Tablet 1 11/26/2022 Active Atorvastatin Calcium 10 MG Oral Tablet (Lipitor) TAKE 1 TABLET BY MOUTH AT BEDTIME for high cholesterol 90 Tablet 1 11/26/2022 Active Carvedilol 25 MG Oral Tablet (Coreg) [...] times daily 405 Tablet 1 03/09/2023 Active HYDROcodone-Acetam inophen 5-325 MG Oral TabletIndications: Cervicalgia Take 1 Tablet by mouth every 8 hours as needed for Pain, Mild. 90 Tablet 0 03/31/2023 Active hydrOXYzine HCl 10 MG Oral Tablet (Atarax)Indication s:Major depressive disorder TAKE 1 TABLET BY MOUTH THREE TIMES DAILY only NEEDED 100 Tablet 1 04/10/2023 Active LORazepam 0.5 MG Oral Tablet (Ativan)Indication s:Generalized anxiety disorder TAKE 1 TABLET BY MOUTH TWICE DAILY NEEDED 60 Tablet 0 04/25/2023 Active Hlnwnhaiyh-BBOF-Qp ffeine 50-325-40 MG Oral Tablet (Fioricet)Indicati ons:Episodic tension-type headache, not intractable TAKE ONE OR TWO TABLETS BY MOUTH EVERY FOUR HOURS NEEDED, NO MORE THAN 6 TABLETS A DAY 30 Tablet 0 05/02/2023 Active Trulicity 0.75 MG/0.5ML Subcutaneous Solution Pen-injector (Dulaglutide)Indic ations:Type 2 diabetes mellitus with hemoglobin A1c goal of less than 8.0% ([facility]) inject contents of 1 syringe (0.75mg) under [...] OR WHEEZING 540 mL 1 05/13/2023 Active Triamcinolone Acetonide 0.1 % External Cream (Aristocort)Indica tions:Dermatitis Apply topically to affected area 2 times a day . Apply to neck and chest 80 g 0 02/02/2022 3 Discontinue d(Refill) Ipratropium-Albute rol 0.5-2.5 (3) MG/3ML Inhalation Solution (Duoneb)Indication s:Extrinsic asthma without complication, unspecified asthma severity, unspecified whether persistent INHALE 1 VIAL VIA NEBULIZER FOUR TIMES DAILY NEEDED FOR SHORTNESS OF BREATH OR WHEEZING 540 mL 1 09/30/2022 3 Discontinue d(Refill) documented as of this encounter (statuses as of 05/13/2023) Active Problems Problem Noted Date Diagnosed Date [...] as of this encounter (statuses as of 05/13/2023) Resolved Problems Problem Noted Date Diagnosed Date [...] as of this encounter (statuses as of 05/13/2023) Immunizations Name Administration Dates Next Due COVID-19, MRNA-LNP, 23-24, P F, 50 MCG/0.5 mL, 12 YRS AND ABOVE, IM (MODERNA-Spikevax) 04/07/2023 Pneumococcal Conjugate Vacc, 13 Valent (Prevnar) 04/27/2017 Pneumococcal Polysaccharide PPV23 (Pneumovax) 03/27/2007 SEASONAL INFLUENZA, PF, 6 M & Above, IM , (FLULAVAL or FLUZONE) 03/13/2018,04/27/2017 04/27/2018 Seasonal Influenza, Quadriva lent Hd [...] Telephone Encounter - Freddy Fitzpatrick MD - 05/13/2023 12:39 PM ESTSigned Prescriptions: Disp Refills Triamcinolone Acetonide 0.1 % External Cre*80 g 0 Sig: Apply topically to affected area 2 times a day. Apply to neck and chestAuthorizing Provider: FREDDY FITZPATRICK Ipratropium-Albuterol 0.5-2.5 (3) MG/3ML I*540 mL 1 Sig: INHALE 1 VIAL VIA NEBULIZER FOUR TIMES DAILY NEEDED FOR SHORTNESS OF BREATH OR WHEEZINGAuthorizing Provider: Cheo FITZPATRICK * Telephone Encounter - Michelle Maurer LPN - 05/13/2023 8:14 AM ESTPending Prescriptions: Disp Refills Triamcinolone Acetonide 0.1 % External Cre*80 g 0 Sig: Apply topically to affected area 2 times a day. Apply to neck and chest Ipratropium-Albuterol 0.5-2.5 (3) MG/3ML I*540 mL 1 Sig: INHALE 1 VIAL VIA NEBULIZER FOUR TIMES DAILY NEEDED FOR SHORTNESS OF BREATH OR WHEEZING * Telephone Encounter - Bhargav Velasquez - 05/12/2023 7:26 PM ESTPending Prescriptions: Disp Refills Triamcinolone Acetonide 0.1 % External Cre*80 g 0 Sig: Apply topically to affected area 2 times a day. Apply to neck and chest Ipratropium-Albuterol 0.5-2.5 (3) MG/3ML I*540 mL 1 Sig: INHALE 1 VIAL VIA NEBULIZER FOUR TIMES DAILY NEEDED FOR SHORTNESS OF BREATH OR WHEEZING documented in this encounter Plan of Treatment Upcoming Encounters Date Type Department Care Team (Late st Contact Info) Description 08/04/2023 2:20 PM EST Office Visit Neurology [facility] [address] [place] [address] Tiffanie Olsen MD [address] [place] [address] 09/07/2023 1:00 PM EDT Office Visit Cardiology, [facility] [address] [place] [address] Lyn[facility] Christian [facility] [address] [facility] [address] 10/04/2023 1:00 PM EDT Office Visit [facility] [address] [facility] [place] [facility] [place] [id number] Harman Rodriguez MD [address] [place] [address] Health Maintenance Due Date Last Done Comments Alpha-1 Antitrypsin 08/24/1953 Hepatitis B (1 of 3 - Risk 3-dose series) 1997 DTaP,Tdap,and Td Vaccines (1 - Tdap) 01/07/2009 01/06/2009, 01/03/1995, 01/03/1995 CKD HGB USE SMARTSET 02788 04/27/201804/27, 05/22/2012, 05/17/2011, Additional history exists Mammogram [...] Additional history exists CKD PHOS USE SMARTSET 96452 10/02/2023 10/01/2022 Diabetic Foot Exam 10/02/2023 10/01/2022, [...] and other eczema, due to unspecified cause Extrinsic asthma without complication, unspecified asthma severity, unspecified whether persistent documented in this encounter Care Teams Blender Machine Operator Relationship Specialty Start Date End Date Freddy Fitzpatrick MD [address] [place] [address] PCP - General Family Medicine 11/04/16 documented as of this encounter
--- OUTSIDE RECORDS SUMMARY | 2023-09-24 21:22 | External Medical Summary | Summary of Care ---
Author Name Unknown Organization [facility] Address [address] [place] [place] [place] [address] Phone [phone] Care Team Providers Care Bb Shot Packer Name Role Phone Freddy Fitzpatrick MD Primary Care Provider +1- [phone] Reason for Visit * Reason Onset Date Comments Medication Refill 05/20/2023 Encounter Details Date Type Department Care Team (Late st Contact Info) Description 05/20/2023 Refill [facility] [address] [place] [facility] [place] [address] Freddy Fitzpatrick MD [address] [place] [address] Cervicalgia Allergies No known active allergiesdocumented as of this encounter (statuses as of 05/23/2023) Medications Medication Sig Dispensed Refills Start Date [...] times daily 405 Tablet 1 03/09/2023 Active hydrOXYzine HCl 10 MG Oral Tablet (Atarax)Indication s:Major depressive disorder TAKE 1 TABLET BY MOUTH THREE TIMES DAILY only NEEDED 100 Tablet 1 04/10/2023 Active LORazepam 0.5 MG Oral Tablet (Ativan)Indication s:Generalized anxiety disorder TAKE 1 TABLET BY MOUTH TWICE DAILY NEEDED 60 Tablet 0 04/25/2023 Active Igcpznlrqf-TWCO-Hz ffeine 50-325-40 MG Oral Tablet (Fioricet)Indicati ons:Episodic [...] Pain, Mild. 90 Tablet 0 05/23/2023 Active HYDROcodone-Acetam inophen 5-325 MG Oral TabletIndications: Cervicalgia Take 1 Tablet by mouth every 8 hours as needed for Pain, Mild. 90 Tablet 0 03/31/2023 3 Discontinue d(Refill) documented as of this encounter (statuses as of 05/23/2023) Active Problems Problem Noted Date Diagnosed Date [...] as of this encounter (statuses as of 05/23/2023) Resolved Problems Problem Noted Date Diagnosed Date [...] as of this encounter (statuses as of 05/23/2023) Immunizations Name Administration Dates Next Due COVID-19, [...] Telephone Encounter - Freddy Fitzpatrick MD - 05/23/2023 4:28 PM ESTSigned Prescriptions: Disp Refills HYDROcodone-Acetaminophen 5-325 MG Oral Ta*90 Tab*0 Sig: Take 1 Tablet by mouth every 8 hours as needed for Pain, Mild.Authorizing Provider: FREDDY FITZPATRICK----- * Telephone Encounter - Ronnell Palacios [facility] - 05/23/2023 8:06 AM EST Pending Prescriptions: Disp Refills HYDROcodone-Acetaminophen 5-325 MG Oral Ta*90 Tab*0 Sig: Take 1 Tablet by mouth every 8 hours as needed for Pain, Mild. * Telephone Encounter - Ronnell Palacios [facility] - 05/23/2023 8:03 AM EST I have reviewed the patients controlled substance dispensing history in the Prescription Drug Monitoring Program in compliance with the [facility] regulations before prescribing a controlled substance. PDMP checked on 05/23/2023. Pending Prescriptions: Disp Refills HYDROcodone-Acetaminophen 5-325 MG Oral T*90 Tab*0 Sig: Take 1 Tablet by mouth every 8 hours as needed for Pain, Mild. Last Visit: 04/04/2023 (in office), 07/01/2020 (telemedicine) Next Visit: 10/04/2023 Date medication was last filled: 03/31/2023 Date medication is due for refill: 04/29/2023 Pharmacy: [id number] Is this request for a controlled substance? Yes and Urine Drug Screen Not completed Toxicology results: No results found. However, due to the size of the patient record, not all encounters were searched.Please check Results Review for a complete set of results. Please approve if appropriate. Thank You, Ronnell Palacios, Pharm-D Clinical Pharmacist [facility] ([facility]) [facility] [phone] 05/23/2023, 8:04 AM documented in this encounter Plan of Treatment Upcoming Encounters Date Type Department Care Team (Late st Contact Info) Description 08/04/2023 2:20 PM EST Office Visit Neurology [facility] [address] [facility] [address] [address] [place] [address] Tiffanie Olsen MD [address] [facility] [place] [address] 09/07/2023 1:00 PM EDT Office Visit Cardiology, [facility] [address] [facility] [place] [address] Lynette Christian CRNP [address] [facility] [place] [address] 10/04/2023 1:00 PM EDT Office Visit Family [facility] [address] [place] [address] OctoberHarman MD [address] [place] [address] Health Maintenance Due Date Last Done Comments Alpha-1 Antitrypsin 08/24/1953 Hepatitis B (1 of 3 - Risk 3-dose series) 1997 DTaP,Tdap,and Td Vaccines (1 - Tdap) 01/07/2009 01/06/2009, 01/03/1995, 01/03/1995 CKD HGB USE SMARTSET 25187 04/27/201804/27, 05/22/2012, 05/17/2011, Additional history exists Mammogram [...] Additional history exists CKD PHOS USE SMARTSET 88639 10/02/2023 10/01/2022 Diabetic Foot Exam 10/02/2023 10/01/2022, [...] Cervicalgia documented in this encounter Care Teams Bb Shot Packer Relationship Specialty Start Date End Date Freddy Fitzpatrick MD [address] [place] [address] PCP - General Family Medicine 11/04/16 documented as of this encounter
--- OUTSIDE RECORDS SUMMARY | 2023-09-24 21:22 | External Medical Summary | Summary of Care ---
Author Name Unknown Organization [facility] Address [address] [place] [place] [place] [address] Phone [phone] Care Team Providers Care Diamond Blender Name Role Phone Freddy Fitzpatrick MD Primary Care Provider +1- [phone] Reason for Visit * Reason Onset Date Comments Medication Refill 05/24/2023 Encounter Details Date Type Department Care Team (Late st Contact Info) Description 05/24/[address] [facility] [address] [facility] [place] [address] Freddy Fitzpatrick MD [address] [place] [address] Episodic tension-type headache, not intractable Allergies No known active allergiesdocumented as of this encounter (statuses as of 05/26/2023) Medications Medication Sig Dispensed Refills Start Date [...] A1c goal of less than 8.0% ([facility]) use twice a day as directed 200 [...] HIGH CHOLESTEROL 90 Tablet 1 05/23/2023 Active Tajbpgpjaj-UXZN-Au ffeine 50-325-40 MG Oral Tablet (Fioricet)Indicati ons:Episodic tension-type headache, not intractable TAKE ONE OR TWO TABLETS BY MOUTH EVERY FOUR HOURS NEEDED, NO MORE THAN 6 TABLETS A DAY 30 Tablet 0 05/26/2023 Active Jhqplsxxxd-AAKK-Gr ffeine 50-325-40 MG Oral Tablet (Fioricet)Indicati ons:Episodic tension-type headache, not intractable TAKE ONE OR TWO TABLETS BY MOUTH EVERY FOUR HOURS NEEDED, NO MORE THAN 6 TABLETS A DAY 30 Tablet 0 05/02/2023 3 Discontinue d(Refill) documented as of this encounter (statuses as of 05/26/2023) Active Problems Problem Noted Date Diagnosed Date [...] as of this encounter (statuses as of 05/26/2023) Resolved Problems Problem Noted Date Diagnosed Date [...] as of this encounter (statuses as of 05/26/2023) Immunizations Name Administration Dates Next Due COVID-19, [...] Telephone Encounter - Freddy Fitzpatrick MD - 05/26/2023 4:19 PM ESTSigned Prescriptions: Disp Refills Iggouhhtdg-GMMH-Buqpgsyn 50-325-40 MG Oral*30 Tab*0 Sig: TAKE ONE OR TWO TABLETS BY MOUTH EVERY FOUR HOURS NEEDED, NO MORE THAN 6 TABLETS A DAYAuthorizing Provider: FREDDY FITZPATRICK * Telephone Encounter - Claribel Aguiar [facility] - 05/26/2023 7:30 AM ESTPending Prescriptions: Disp Refills Ojprjxtuim-XUMN-Wrqbkxrj 50-325-40 MG Oral*30 Tab*0 Sig: TAKE ONE OR TWO TABLETS BY MOUTH EVERY FOUR HOURS NEEDED, NO MORE THAN 6 TABLETS A DAY * Telephone Encounter - Claribel Aguiar [facility] - 05/26/2023 7:18 AM EST I have reviewed the patients controlled substance dispensing history in the Prescription Drug Monitoring Program in compliance with the [facility] regulations before prescribing a controlled substance. PDMP checked on 05/26/2023. Pending Prescriptions: Disp Refills Eyibpdqseq-IADI-Txjghhrn 50-325-40 MG Ora*30 Tab*0 Sig: TAKE ONE OR TWO TABLETS BY MOUTH EVERY FOUR HOURS NEEDED, NO MORE THAN 6 TABLETS A DAY Last Visit: 04/04/2023 (in office), 07/01/2020 (telemedicine) Next Visit: 10/04/2023 Date medication was last filled: 05/02/23 Date medication is due for refill: 05/06/23 [id number] [address] Is this request for a controlled substance? Yes and Urine Drug Screen Not completed Toxicology results: No results found. However, due to the size of the patient record, not all encounters were searched.Please check Results Review for a complete set of results. Please approve if appropriate. Darren, Claribel Aguiar Clinical Pharmacist [facility] Clinical Pharmacy Services ([facility]PS) (Formerly Telepharmacy) [phone] 05/26/2023, 7:25 AM documented in this encounter Plan of Treatment Upcoming Encounters Date Type Department Care Team (Late st Contact Info) Description 08/04/2023 2:20 PM EST Office Visit Neurology [facility] [address] [facility] [place] [address] Tiffanie Olsen MD [address] [facility] [place] [address] 09/07/2023 1:00 PM EDT Office Visit Cardiology, [facility] [address] [place] [address] Lynette Christian CRNP [address] [place] [address] 10/04/2023 1:00 PM EDT Office Visit Family [facility] [address] [facility] [id number] OctoberHarman MD [address] [place] [address] Health Maintenance Due Date Last Done Comments Alpha-1 Antitrypsin 08/24/1953 Hepatitis B (1 of 3 - Risk 3-dose series) 1997 DTaP,Tdap,and Td Vaccines (1 - Tdap) 01/07/2009 01/06/2009, 01/03/1995, 01/03/1995 CKD HGB USE SMARTSET 38444 04/27/201804/27, 05/22/2012, 05/17/2011, Additional history exists Mammogram [...] Additional history exists CKD PHOS USE SMARTSET 57767 10/02/2023 10/01/2022 Diabetic Foot Exam 10/02/2023 10/01/2022, [...] headache documented in this encounter Care Teams Diamond Blender Relationship Specialty Start Date End Date Freddy Fitzpatrick MD [address] [place] [address] PCP - General Family Medicine 11/04/16 documented as of this encounter
--- OUTSIDE RECORDS SUMMARY | 2023-09-24 21:22 | External Medical Summary | Summary of Care ---
Author Name Unknown Organization [facility] Address [address] [facility] [address] Phone [phone] Care Team Providers Care Director [place] Sales Name Role Phone Jose Bowles MD Primary Care Provider +1- [phone] Encounter Details Date Type Department Care Team (Late st Contact Info) Description 05/16/2023 Telephone [facility] [address] [place] [address] Jose Bowles MD [address] [place] [address] Allergies No known active allergiesdocumented as of this encounter (statuses as of 05/17/2023) Medications Medication Sig Dispensed Refills Start Date [...] hemoglobin A1c goal of less than 8.0% ([facility]) use twice a day as directed [...] 10/01/2022 Active Ezetimibe 10 MG Oral Tablet (Zetia)Indications: [...] times daily 405 Tablet 1 03/09/2023 Active HYDROcodone-Acetami nophen 5-325 MG Oral TabletIndications:C ervicalgia Take 1 Tablet by mouth every 8 hours as needed for Pain, Mild. 90 Tablet 0 03/31/2023 Active hydrOXYzine HCl 10 MG Oral Tablet (Atarax)Indications :Major depressive disorder TAKE 1 TABLET BY MOUTH THREE TIMES DAILY only NEEDED 100 Tablet 1 04/10/2023 Active LORazepam 0.5 MG Oral Tablet (Ativan)Indications :Generalized anxiety disorder TAKE 1 TABLET BY MOUTH TWICE DAILY NEEDED 60 Tablet 0 04/25/2023 Active Lczmpbvccf-MNOA-Pkk feine 50-325-40 MG Oral Tablet (Fioricet)Indicatio ns:Episodic tension-type headache, not intractable TAKE ONE OR TWO TABLETS BY MOUTH EVERY FOUR HOURS NEEDED, NO MORE THAN 6 TABLETS A DAY 30 Tablet 0 05/02/2023 Active Trulicity 0.75 MG/0.5ML Subcutaneous Solution Pen-injector (Dulaglutide)Indica tions:Type 2 diabetes mellitus with hemoglobin A1c goal of less than 8.0% ([facility]) inject contents of 1 syringe (0.75mg) [...] OR WHEEZING 540 mL 1 05/13/2023 Active documented as of this encounter (statuses as of 05/17/2023) Active Problems Problem Noted Date Diagnosed Date [...] as of this encounter (statuses as of 05/17/2023) Resolved Problems Problem Noted Date Diagnosed Date [...] as of this encounter (statuses as of 05/17/2023) Immunizations Name Administration Dates Next Due COVID-19, [...] encounter Miscellaneous Notes * Telephone Encounter - Michelle Maurer LPN - 05/17/2023 10:30 AM EST Prior auth has been denied * Telephone Encounter - Michelle Maurer LPN - 05/16/2023 3:23 PM EST Prior auth started for DUO neb through [facility] [id number] documented in this encounter Plan of Treatment Upcoming Encounters Date Type Department Care Team (Late st Contact Info) Description 08/04/2023 2:20 PM EST Office Visit Neurology [facility] [address] [facility] [place] [address] Tiffanie Olsen MD [address] [facility] [place] [address] 09/07/2023 1:00 PM EDT Office Visit [facility] [place] [address] Lynette Christian CRNP [address] [facility] [place] [address] 10/04/2023 1:00 PM EDT Office Visit Family [facility] [address] [place] [address] OctoberHarman MD [address] [place] [address] Health Maintenance Due Date Last Done Comments Alpha-1 Antitrypsin 08/24/1953 Hepatitis B (1 of 3 - Risk 3-dose series) 1997 DTaP,Tdap,and Td Vaccines (1 - Tdap) 01/07/2009 01/06/2009, 01/03/1995, 01/03/1995 CKD HGB USE SMARTSET 09956 04/27/201804/27, 05/22/2012, 05/17/2011, Additional history exists Mammogram [...] Additional history exists CKD PHOS USE SMARTSET 91878 10/02/2023 10/01/2022 Diabetic Foot Exam 10/02/2023 10/01/2022, [...] filedocumented as of this encounter Care Teams Director [place] Sales Relationship Specialty Start Date End Date Jose Bowles MD [address], [place] [id number] PCP - General Family Medicine 11/04/16 documented as of this encounter
--- OUTSIDE RECORDS SUMMARY | 2023-09-24 21:22 | External Medical Summary | Summary of Care ---
Author Name Unknown Organization [facility] Address [address] [place] [address] Phone [phone] Care Team Providers Care Food Crops Farm Hand Name Role Phone Jose Fitzpatrick MD Primary Care Provider [phone]- [phone] Reason for Visit * Reason Comments eRx-Medication Refill Encounter Details Date Type Department Care Team (Late st Contact Info) Description 05/22/2023 Refill [facility] [address] [place] [address] Jose Fitzpatrick MD [address] [place] [address] Dyslipidemia Allergies No known active allergiesdocumented as of [...] A1c goal of less than 8.0% ([facility]) use twice a day as directed [...] times daily 405 Tablet 1 03/09/2023 Active HYDROcodone-Aceta minophen 5-325 MG Oral TabletIndications :Cervicalgia Take 1 Tablet by mouth every 8 hours as needed for Pain, Mild. 90 Tablet 0 03/31/2023 Active hydrOXYzine HCl 10 MG Oral Tablet (Atarax)Indicatio ns:Major depressive disorder TAKE 1 TABLET BY MOUTH THREE TIMES DAILY only NEEDED 100 Tablet 1 04/10/2023 Active LORazepam 0.5 MG Oral Tablet (Ativan)Indicatio ns:Generalized anxiety disorder TAKE 1 TABLET BY MOUTH TWICE DAILY NEEDED 60 Tablet 0 04/25/2023 Active Muxmqhbfrp-LGXC-R affeine 50-325-40 MG Oral Tablet (Fioricet)Indicat ions:Episodic tension-type headache, not intractable TAKE ONE OR TWO TABLETS BY MOUTH EVERY FOUR HOURS NEEDED, NO MORE THAN 6 TABLETS A DAY 30 Tablet 0 05/02/2023 Active Trulicity 0.75 MG/0.5ML Subcutaneous Solution Pen-injector (Dulaglutide)Isela cations:Type 2 diabetes mellitus with hemoglobin A1c goal of less than 8.0% ([facility]) inject contents of 1 syringe (0.75mg) under [...] HIGH CHOLESTEROL 90 Tablet 1 05/23/2023 Active Ezetimibe 10 MG Oral Tablet (Zetia)Indication s:Dyslipidemia TAKE 1 TABLET BY MOUTH AT BEDTIME for high cholesterol 90 Tablet 1 11/26/2022 05/23/20 23 Discontinued Atorvastatin Calcium 10 MG Oral Tablet (Lipitor) TAKE 1 TABLET BY MOUTH AT BEDTIME for high cholesterol 90 Tablet 1 11/26/2022 05/23/20 23 Discontinued documented as of this encounter (statuses [...] encounter Miscellaneous Notes * Telephone Encounter - Claribel Aguiar [facility] - 05/23/2023 12:40 PM ESTSigned Prescriptions: Disp Refills Ezetimibe 10 MG Oral Tablet (Zetia) 90 Tab*1 Sig: TAKE 1 TABLET BY MOUTH AT BEDTIME FOR HIGH CHOLESTEROLAuthorizing Provider: JOSE FITZPATRICK User: CLARIBEL AGUIAR Atorvastatin Calcium 10 MG Oral Tablet (Li*90 Tab*1 Sig: TAKE 1 TABLET BY MOUTH AT BEDTIME FOR HIGH CHOLESTEROLAuthorizing Provider: JOSE FITZPATRICK User: CLARIBEL AGUIAR documented in this encounter Plan of Treatment Upcoming Encounters Date Type Department Care Team (Late st Contact Info) Description 08/04/2023 2:20 PM EST Office Visit Neurology [facility] [place] [address] Tiffanie Olsen MD 200 [facility] [place] [address] 09/07/2023 1:00 PM EDT Office Visit Cardiology, [facility] 132 [facility] [place] [address] Lynette Christian CRNP 132 [facility] [place] [address] 10/04/2023 1:00 PM EDT Office Visit Family [facility] [address] [place] [phone] Harman Rodriguez MD [address] [place] [address] Health Maintenance Due Date Last Done Comments Alpha-1 Antitrypsin 08/24/1953 Hepatitis B (1 of 3 - Risk 3-dose series) 1997 DTaP,Tdap,and Td Vaccines (1 - Tdap) 01/07/2009 01/06/2009, 01/03/1995, 01/03/1995 CKD HGB USE SMARTSET 26712 04/27/201804/27, 05/22/2012, 05/17/2011, Additional history exists Mammogram [...] Additional history exists CKD PHOS USE SMARTSET 82797 10/02/2023 10/01/2022 Diabetic Foot Exam 10/02/2023 10/01/2022, [...] as of this encounter Visit Diagnoses Diagnosis Dyslipidemia Other and unspecified hyperlipidemia documented in this encounter Care Teams Food Crops Farm Hand Relationship Specialty Start Date End Date Jose Fitzpatrick MD [address] [place] [address] PCP - General Family Medicine 11/04/16 documented as of this encounter
--- OUTSIDE RECORDS SUMMARY | 2023-09-24 21:22 | External Medical Summary | Summary of Care ---
Author Name Unknown Organization [facility] Address [address] [place] [place] [address] Phone [phone] Care Team Providers Care Carpet Repairer Name Role Phone Freddy Fitzpatrick MD Primary Care Provider [phone]- [phone] Reason for Visit * Reason Onset Date Comments Medication Refill 06/14/2023 Encounter Details Date Type Department Care Team (Late st Contact Info) Description 06/14/2023 Refill [facility] [address] [place] [facility] [place] [address] Freddy Fitzpatrick MD [address] [place] [address] Episodic tension-type headache, not intractable Allergies No known active allergiesdocumented as of this encounter (statuses as of 06/15/2023) Medications Medication Sig Dispensed Refills Start Date [...] HIGH CHOLESTEROL 90 Tablet 1 05/23/2023 Active Uzojwbzhyx-ATLR-Qq ffeine 50-325-40 MG Oral Tablet (Fioricet)Indicati ons:Episodic tension-type headache, not intractable TAKE ONE OR TWO TABLETS BY MOUTH EVERY FOUR HOURS NEEDED, NO MORE THAN 6 TABLETS A DAY 30 Tablet 0 06/15/2023 Active Shlurpdrmo-RYTU-Ba ffeine 50-325-40 MG Oral Tablet (Fioricet)Indicati ons:Episodic tension-type headache, not intractable TAKE ONE OR TWO TABLETS BY MOUTH EVERY FOUR HOURS NEEDED, NO MORE THAN 6 TABLETS A DAY 30 Tablet 0 05/26/2023 4 Discontinue d(Refill) documented as of this encounter (statuses as of 06/15/2023) Active Problems Problem Noted Date Diagnosed Date [...] as of this encounter (statuses as of 06/15/2023) Resolved Problems Problem Noted Date Diagnosed Date [...] as of this encounter (statuses as of 06/15/2023) Immunizations Name Administration Dates Next Due COVID-19, [...] Telephone Encounter - Freddy Fitzpatrick MD - 06/15/2023 2:04 PM ESTSigned Prescriptions: Disp Refills Xxwqgopany-RQPV-Dhwyxutg 50-325-40 MG Oral*30 Tab*0 Sig: TAKE ONE OR TWO TABLETS BY MOUTH EVERY FOUR HOURS NEEDED, NO MORE THAN 6 TABLETS A DAYAuthorizing Provider: FREDDY FITZPATRICK * Telephone Encounter - Ethan Slater [facility] - 06/15/2023 1:31 PM ESTPending Prescriptions: Disp Refills Pyomujqkhq-VOEP-Fwjoamtp 50-325-40 MG Oral*30 Tab*0 Sig: TAKE ONE OR TWO TABLETS BY MOUTH EVERY FOUR HOURS NEEDED, NO MORE THAN 6 TABLETS A DAY * Telephone Encounter - Ethan Slater [facility] - 06/15/2023 1:27 PM EST I have reviewed the patients controlled substance dispensing history in the Prescription Drug Monitoring Program in compliance with the [place] regulations before prescribing a controlled substance. PDMP checked on 06/15/2023. Pending Prescriptions: Disp Refills Ajwxzujeds-IKGJ-Akyxbybl 50-325-40 MG Ora*30 Tab*0 Sig: TAKE ONE OR TWO TABLETS BY MOUTH EVERY FOUR HOURS NEEDED, NO MORE THAN 6 TABLETS A DAY Last Visit: 04/04/2023 (in office), 07/01/2020 (telemedicine) Next Visit: 10/04/2023 Date medication was last filled: 05/02/2023 (not reported via PDMP - fill hx per adherence tool) Date medication is due for refill: 05/06/2023 [id number] [address] Is this request for a controlled substance? Yes and Urine Drug Screen Not completed Toxicology results: No results found. However, due to the size of the patient record, not all encounters were searched.Please check Results Review for a complete set of results. Please approve if appropriate. Thanks, Ethan Slater Pharm.D. Clinical Pharmacist Centralized Clinical Pharmacy Services (CCPS)(Formerly Telepharmacy) [phone] 06/15/2023, 1:28 PM documented in this encounter Plan of Treatment Upcoming Encounters Date Type Department Care Team (Late st Contact Info) Description 08/04/2023 2:20 PM EST Office Visit Neurology [facility] 200 [facility] [place] [address] Tiffanie Olsen MD 200 [facility] [place] [address] 09/07/2023 1:00 PM EDT Office Visit Cardiology, [facility] [address] [facility] [place] [address] Lynette Christian CRNP 132 [facility] [place] [address] 10/04/2023 1:00 PM EDT Office Visit [facility] [address] [place] [address] [place] [phone] OctoberHarman MD [address] [place], [place] [phone] Health Maintenance Due Date Last Done Comments Alpha-1 Antitrypsin 08/24/1953 Hepatitis B (1 of 3 - Risk 3-dose series) 1997 DTaP,Tdap,and Td Vaccines (1 - Tdap) 01/07/2009 01/06/2009, 01/03/1995, 01/03/1995 CKD HGB USE SMARTSET 04668 04/27/201804/27, 05/22/2012, 05/17/2011, Additional history exists Mammogram [...] Additional history exists CKD PHOS USE SMARTSET 46542 10/02/2023 10/01/2022 Diabetic Foot Exam 10/02/2023 10/01/2022, [...] headache documented in this encounter Care Teams Carpet Repairer Relationship Specialty Start Date End Date Freddy Fitzpatrick MD [address] [place] [address] PCP - General Family Medicine 11/04/16 documented as of this encounter
--- OUTSIDE RECORDS SUMMARY | 2023-09-24 21:22 | External Medical Summary | Summary of Care ---
Author Name Unknown Organization [facility] Address [address] [place] [facility] [place] [address] Phone [phone] Care Team Providers Care Casing Cleaner Name Role Phone Jose Bowles MD Primary Care Provider [phone]- [phone] Reason for Visit * Reason Onset Date Comments Forms Request 06/27/2023 For PACE Encounter Details Date Type Department Care Team (Late st Contact Info) Description 06/27/2023 Telephone [facility] [address] [place] [facility] [place] [address] Jose Bowles MD [address] [place] [address] Forms Request (For PACE) Allergies No known active allergiesdocumented as of this encounter (statuses as of 07/08/2023) Medications Medication Sig Dispensed Refills Start Date [...] OR WHEEZING 540 mL 1 05/13/2023 Active HYDROcodone-Acetami nophen 5-325 MG Oral TabletIndications:C ervicalgia Take 1 Tablet by mouth every 8 hours as needed for Pain, Mild. 90 Tablet 0 05/23/2023 Active Ezetimibe 10 MG Oral Tablet (Zetia)Indications: Dyslipidemia TAKE 1 TABLET BY MOUTH AT BEDTIME FOR HIGH CHOLESTEROL 90 Tablet 1 05/23/2023 Active Atorvastatin Calcium 10 MG Oral Tablet (Lipitor) TAKE 1 TABLET BY MOUTH AT BEDTIME FOR HIGH CHOLESTEROL 90 Tablet 1 05/23/2023 Active Ojiknqiorp-MNXB-Rxs feine 50-325-40 MG Oral Tablet (Fioricet)Indicatio ns:Episodic tension-type headache, not intractable TAKE ONE OR TWO TABLETS BY MOUTH EVERY FOUR HOURS NEEDED, NO MORE THAN 6 TABLETS A DAY 30 Tablet 0 06/15/2023 Active hydrOXYzine HCl 10 MG Oral Tablet (Atarax)Indications :Major depressive disorder TAKE 1 TABLET BY MOUTH THREE TIMES DAILY only NEEDED 100 Tablet 1 06/21/2023 Active documented as of this encounter (statuses as of 07/08/2023) Active Problems Problem Noted Date Diagnosed Date [...] as of this encounter (statuses as of 07/08/2023) Resolved Problems Problem Noted Date Diagnosed Date [...] as of this encounter (statuses as of 07/08/2023) Immunizations Name Administration Dates Next Due COVID-19, [...] Telephone Encounter - Conchis Mon LPN - 06/27/2023 1:58 PM EST Form placed on doctor's desk documented in this encounter Plan of Treatment Upcoming Encounters Date Type Department Care Team (Late st Contact Info) Description 08/04/2023 2:20 PM EST Office Visit Neurology [facility] [place], [place] [address] Tiffanie Olsen MD 200 [facility] [place] [address] 09/07/2023 1:00 PM EDT Office Visit Cardiology, [facility] [address] [facility] [place] [address] Lynette Christian CRNP [address] [facility] [place] [address] 10/04/2023 1:00 PM EDT Office Visit [facility] [address] [place] [phone] OctoberHarman MD [address] [place] [address] Health Maintenance Due Date Last Done Comments Alpha-1 Antitrypsin 08/24/1953 Hepatitis B (1 of 3 - Risk 3-dose series) 1997 DTaP,Tdap,and Td Vaccines (1 - Tdap) 01/07/2009 01/06/2009, 01/03/1995, 01/03/1995 CKD HGB USE SMARTSET 27272 04/27/201804/27, 05/22/2012, 05/17/2011, Additional history exists Mammogram [...] Additional history exists CKD PHOS USE SMARTSET 44932 10/02/2023 10/01/2022 Diabetic Foot Exam 10/02/2023 10/01/2022, [...] filedocumented as of this encounter Care Teams Casing Cleaner Relationship Specialty Start Date End Date Jose Bowles MD [address] [place] [address] PCP - General Family Medicine 11/04/16 documented as of this encounter
--- OUTSIDE RECORDS SUMMARY | 2023-09-24 21:23 | External Medical Summary | Summary of Care ---
Author Name Unknown Organization [facility] Address [address] [place] [facility] [place] [address] Phone [phone] Care Team Providers Care Channel Man Name Role Phone Jose Fitzpatrick MD Primary Care Provider +1- [phone] Reason for Visit * Reason Onset Date Comments Medication Refill 04/07/2023 Encounter Details Date Type Department Care Team (Late st Contact Info) Description 04/07/2023 Refill [facility] [address] [place] [facility] [place] [address] Jose Fitzpatrick MD [address] [place] [address] Episodic tension-type headache, not intractable Allergies No known active allergiesdocumented as of this encounter (statuses as of 04/08/2023) Medications Medication Sig Dispensed Refills Start Date [...] hemoglobin A1c goal of less than 8.0% ([facility]) use twice a day as directed 200 Each 3 12/03/2021 Active Omeprazole 20 MG Oral Capsule Delayed Release (PriLOSEC) TAKE 1 CAPSULE BY MOUTH ONCE DAILY for stomach acid 90 Capsule 1 01/29/2022 Active Triamcinolone Acetonide 0.1 % External Cream (Aristocort)Indic ations:Dermatitis Apply topically to affected area 2 times a day . Apply to neck and chest 80 g 0 02/02/2022 Active Budesonide-Formot joselo Fumarate 160-4.5 MCG/ACT Inhalation Aerosol (Symbicort)Indica tions:Asthma, allergic INHALE TWO PUFFS BY MOUTH TWICE DAILY. RINSE MOUTH AFTER EACH USE 30.6 g 1 09/27/2022 Active Ipratropium-Albut joselo 0.5-2.5 (3) MG/3ML Inhalation Solution (Duoneb)Indicatio ns:Extrinsic asthma without complication, unspecified asthma severity, unspecified whether persistent INHALE 1 VIAL VIA NEBULIZER FOUR TIMES DAILY NEEDED FOR SHORTNESS OF BREATH OR WHEEZING 540 mL 1 09/30/2022 Active Escitalopram Oxalate 20 MG Oral Tablet (Lexapro)Indicati ons:Generalized anxiety disorder Take 1 Tablet by mouth in the morning. 90 Tablet 3 10/01/2022 Active Trulicity 0.75 MG/0.5ML Subcutaneous Solution Pen-injector (Dulaglutide)Isela cations:Type 2 diabetes mellitus with hemoglobin A1c goal of less than 8.0% ([facility]) inject contents of 1 syringe (0.5 ml) subcutaneously once weekly 2 mL 5 11/16/2022 Active Ezetimibe 10 MG Oral Tablet (Zetia)Indication [...] and supper) 180 Tablet 2 12/21/2022 Active hydrOXYzine HCl 10 MG Oral Tablet (Atarax)Indicatio ns:Major depressive disorder TAKE 1 TABLET BY MOUTH THREE TIMES DAILY ONLY NEEDED 100 Tablet 1 01/31/2023 Active LORazepam 0.5 MG Oral Tablet (Ativan)Indicatio ns:Generalized anxiety disorder TAKE 1 TABLET BY MOUTH TWICE DAILY NEEDED 60 Tablet 0 03/04/2023 Active Lisinopril 5 MG Oral Tablet (Prinivil) [...] Pain, Mild. 90 Tablet 0 03/31/2023 Active Nsiqmdokwk-RANS-S affeine 50-325-40 MG Oral Tablet (Fioricet)Indicat ions:Episodic tension-type headache, not intractable TAKE ONE OR TWO TABLETS BY MOUTH EVERY FOUR HOURS NEEDED, NO MORE THAN 6 TABLETS A DAY 30 Tablet 0 04/08/2023 Active Aiealaenqn-BHHO-B affeine 50-325-40 MG Oral Tablet (Fioricet)Indicat ions:Episodic tension-type headache, not intractable TAKE ONE OR TWO TABLETS BY MOUTH EVERY FOUR HOURS NEEDED, NO MORE THAN 6 TABLETS A DAY 30 Tablet 0 03/20/2023 04/07/20 23 Discontinu ed(Refill) documented as of this encounter (statuses as of 04/08/2023) Active Problems Problem Noted Date Diagnosed Date [...] as of this encounter (statuses as of 04/08/2023) Resolved Problems Problem Noted Date Diagnosed Date [...] as of this encounter (statuses as of 04/08/2023) Immunizations Name Administration Dates Next Due Pneumococcal Conjugate Vacc, 13 Valent (Prevnar) 04/27/2017 [...] Telephone Encounter - Jose Fitzpatrick MD - 04/08/2023 3:58 PM EDTSigned Prescriptions: Disp Refills Tsrcwsewhz-UFRV-Ubtampmi 50-325-40 MG Oral*30 Tab*0 Sig: TAKE ONE OR TWO TABLETS BY MOUTH EVERY FOUR HOURS NEEDED, NO MORE THAN 6 TABLETS A DAYAuthorizing Provider: JOSE FITZPATRICK * Telephone Encounter - Noris Dodson [facility] - 04/08/2023 1:32 PM EDTPending Prescriptions: Disp Refills Uprgovdlgm-CTPS-Psletavq 50-325-40 MG Oral*30 Tab*0 Sig: TAKE ONE OR TWO TABLETS BY MOUTH EVERY FOUR HOURS NEEDED, NO MORE THAN 6 TABLETS A DAY * Telephone Encounter - Noris Dodson [facility] - 04/08/2023 1:31 PM EDT I have reviewed the patients controlled substance dispensing history in the Prescription Drug Monitoring Program in compliance with the [place] regulations before prescribing a controlled substance. PDMP checked on 04/08/2023. Pending Prescriptions: Disp Refills Jkgijxgnen-XHHK-Tgslzdzt 50-325-40 MG Ora*30 Tab*0 Sig: TAKE ONE OR TWO TABLETS BY MOUTH EVERY FOUR HOURS NEEDED, NO MORE THAN 6 TABLETS A DAY Last Visit: 04/04/2023 (in office), 07/01/2020 (telemedicine) Next Visit: 10/04/2023 Date medication was last filled: 03/20/23 Date medication is due for refill: 03/25/23 Pharmacy: [id number] [id number] Is this request for a controlled substance? Yes and Urine Drug Screen Not completed Toxicology results: No results found. However, due to the size of the patient record, not all encounters were searched.Please check Results Review for a complete set of results. Please approve if appropriate. Thank You, Noris Dodson [facility] Clinical Pharmacist Centralized Clinical Pharmacy Services (CCPS) (formerly Telepharmacy) [phone] 04/08/2023, 1:31 PM documented in this encounter Plan of Treatment Upcoming Encounters Date Type Department Care Team (Late st Contact Info) Description 08/04/2023 2:20 PM EST Office Visit Neurology [facility] 200 [facility] [place] [address] Tiffanie Olsen MD 200 [place] [address] 09/07/2023 1:00 PM EDT Office Visit Cardiology, [facility] 132 [facility] [place] [address] Lynette Christian CRNP 132 [facility] [place] [address] 10/04/2023 1:00 PM EDT Office Visit [facility] [address] [place] [phone] OctoberHarman MD [address] [place] [address] Health Maintenance Due Date Last Done Comments COVID-19 Vaccine (#1) 02/23/1936 Alpha-1 Antitrypsin 08/24/1953 Hepatitis B (1 of 3 - Risk 3-dose series) 1997 DTaP,Tdap,and Td Vaccines (1 - Tdap) 01/07/2009 01/06/2009, 01/03/1995, 01/03/1995 CKD HGB USE SMARTSET 97904 04/27/201804/27, 05/22/2012, 05/17/2011, Additional history exists Mammogram 08/26/2019 08/25/2018, 01/04, 01/19/2011 (Done elsewhere), Additional history exists Depression Screening 01/26/2020 01/25/2019 Diabetic Eye Exam 06/03/2022 06/03/2021, , 06/03/2020, Additional history exists Albumin/Creatinine Ratio 10/29/2022 022, 10/21/2020, 01/08/2020, Additional history exists Influenza Vaccine (FLU shot) (#1) 2023 03/13/2022, 04/08/2021, 03/08/2019, Additional history exists Zoster Vaccines (2 of 2) 06/02/2023 04/07/2023 B-12 10/02/2023 10/01/2022, 04/07, 10/21/2020, Additional history exists CKD PHOS USE SMARTSET 50921 10/02/2023 10/01/2022 Diabetic Foot Exam 10/02/2023 10/01/2022, 1 07/30/2018, 05/02/2018, Additional history exists HbA1c 10/04/2023 04/04/2023, 09/05, 06/02/2022, Additional history exists O2 ASSESSMENT COMPLETED IN PAST YEAR FOR COPD 04/04/2024 04/04/2023 DXA Scan 04/20/2025 04/20/2022, 09/05, 03/06/2007, Additional history exists Pneumococcal Vaccine: 65+ Years Completed 04/27/2017, 03/27/2007, 04/03/2002, Additional history exists GARDASIL-HPV IMMUNIZATION SERIES Aged Out No longer eligible based on patient's age to complete this topic MENINGOCOCCAL (MENACTRA/MENVEO) Aged Out No longer eligible based on patient's age to complete this topic documented as of this encounter Medical Devices Not on filedocumented as of this encounter Visit Diagnoses Diagnosis Episodic tension-type headache, not intractable Episodic tension type headache documented in this encounter Care Teams Channel Man Relationship Specialty Start Date End Date Jose Fitzpatrick MD [address] [place] [address] PCP - General Family Medicine 11/04/16 documented as of this encounter
--- OUTSIDE RECORDS SUMMARY | 2023-09-24 21:23 | External Medical Summary | Summary of Care ---
Author Name Unknown Organization [facility] Address [address] [place] [facility] [address] Phone [phone] Care Team Providers Care Automotive Specialty Technician Name Role Phone Freddy Fitzpatrick MD Primary Care Provider [phone]- [phone] Reason for Visit * Reason Onset Date Comments Medication Refill 05/01/2023 Encounter Details Date Type Department Care Team (Late st Contact Info) Description 05/01/2023 Refill [facility] [address] [place] [address] Freddy Fitzpatrick MD [address] [place] [address] Episodic tension-type headache, not intractable Allergies No known active allergiesdocumented as of this encounter (statuses as of 05/02/2023) Medications Medication Sig Dispensed Refills Start Date [...] [facility]) inject contents of 1 syringe (0.5 ml) [...] DAILY NEEDED 60 Tablet 0 04/25/2023 Active Kbnsyppvet-PQZO-R affeine 50-325-40 MG Oral Tablet (Fioricet)Indicat ions:Episodic tension-type headache, not intractable TAKE ONE OR TWO TABLETS BY MOUTH EVERY FOUR HOURS NEEDED, NO MORE THAN 6 TABLETS A DAY 30 Tablet 0 05/02/2023 Active Deiudxfpex-NQFX-Z affeine 50-325-40 MG Oral Tablet (Fioricet)Indicat ions:Episodic tension-type headache, not intractable TAKE ONE OR TWO TABLETS BY MOUTH EVERY FOUR HOURS NEEDED, NO MORE THAN 6 TABLETS A DAY 30 Tablet 0 04/08/2023 05/01/20 23 Discontinu ed(Refill) documented as of this encounter (statuses as of 05/02/2023) Active Problems Problem Noted Date Diagnosed Date [...] as of this encounter (statuses as of 05/02/2023) Resolved Problems Problem Noted Date Diagnosed Date [...] as of this encounter (statuses as of 05/02/2023) Immunizations Name Administration Dates Next Due COVID-19, [...] Miscellaneous Notes * Telephone Encounter - Freddy Fiztpatrick MD - 05/02/2023 4:38 PM ESTSigned Prescriptions: Disp Refills Mdctzkwvgo-KVXZ-Qsalqgbr 50-325-40 MG Oral*30 Tab*0 Sig: TAKE ONE OR TWO TABLETS BY MOUTH EVERY FOUR HOURS NEEDED, NO MORE THAN 6 TABLETS A DAYAuthorizing Provider: FREDDY FITZPATRICK * Telephone Encounter - Claribel Aguiar [facility] - 05/02/2023 3:08 PM ESTPending Prescriptions: Disp Refills Wfqtvfeloi-YABP-Dbwhnqid 50-325-40 MG Oral*30 Tab*0 Sig: TAKE ONE OR TWO TABLETS BY MOUTH EVERY FOUR HOURS NEEDED, NO MORE THAN 6 TABLETS A DAY * Telephone Encounter - Claribel Aguiar [facility] - 05/02/2023 3:07 PM EST I have reviewed the patients controlled substance dispensing history in the Prescription Drug Monitoring Program in compliance with the [place] regulations before prescribing a controlled substance. PDMP checked on 05/02/2023. Pending Prescriptions: Disp Refills Gvyyoyzjqa-GHMF-Hiuheiip 50-325-40 MG Ora*30 Tab*0 Sig: TAKE ONE OR TWO TABLETS BY MOUTH EVERY FOUR HOURS NEEDED, NO MORE THAN 6 TABLETS A DAY Last Visit: 04/04/2023 (in office), 07/01/2020 (telemedicine) Next Visit: 10/04/2023 Date medication was last filled: 04/08/23 Date medication is due for refill: 04/12/23 Pharmacy: [id number] Is this request for a controlled substance? Yes and Urine Drug Screen Not completed Toxicology results: No results found. However, due to the size of the patient record, not all encounters were searched.Please check Results Review for a complete set of results. Please approve if appropriate. Thanks, Claribel Aguiar Clinical Pharmacist [facility] ([facility]) (Formerly Telepharm[facility]) [phone] 05/02/2023, 3:07 PM documented in this encounter Plan of Treatment Upcoming Encounters Date Type Department Care Team (Late st Contact Info) Description 08/04/2023 2:20 PM EST Office Visit Neurology [facility] [address] [place] [address] Tiffanie Olsen MD [address] [facility] [place] [address] 09/07/2023 1:00 PM EDT Office Visit Cardiology, [facility] [address] [place] [address] Lynette Christian CRNP [address] [facility] [place] [address] 10/04/2023 1:00 PM EDT Office Visit [facility] [address] [place] [phone] OctoberHarman MD [address] [place], [place] [id number] Health Maintenance Due Date Last Done Comments Alpha-1 Antitrypsin 08/24/1953 Hepatitis B (1 of 3 - Risk 3-dose series) 1997 DTaP,Tdap,and Td Vaccines (1 - Tdap) 01/07/2009 01/06/2009, 01/03/1995, 01/03/1995 CKD HGB USE SMARTSET 80816 04/27/201804/27, 05/22/2012, 05/17/2011, Additional history exists Mammogram [...] Additional history exists CKD PHOS USE SMARTSET 00908 10/02/2023 10/01/2022 Diabetic Foot Exam 10/02/2023 10/01/2022, [...] headache documented in this encounter Care Teams Automotive Specialty Technician Relationship Specialty Start Date End Date Freddy Fitzpatrick MD [address] [facility] [place] [address] PCP - General Family Medicine 11/04/16 documented as of this encounter
--- OUTSIDE RECORDS SUMMARY | 2023-09-24 21:23 | External Medical Summary | Summary of Care ---
Author Name Unknown Organization [facility] Address [address] [place] [address] Phone [phone] Care Team Providers Care Actimize Architect Name Role Phone Jose Bowles MD Primary Care Provider +1- [phone] Reason for Visit * Reason Comments Outpatient Testing Encounter Details Date Type Department Care Team (Late st Contact Info) Description 04/04/2023 1:50 PM EDT Laboratory [facility], [facility] [address] [place] [address] [facility] [address] [place] [address] Type 2 diabetes mellitus with hemoglobin A1c goal of less than 8.0% ([facility]); Chronic kidney disease, stage 3a ([facility]) Allergies No known active allergiesdocumented as of this encounter (statuses as of 04/04/2023) Medications Medication Sig Dispensed Refills Start Date [...] and chest 80 g 0 02/02/2022 Active Budesonide-Formote rol Fumarate 160-4.5 MCG/ACT Inhalation Aerosol (Symbicort)Indicat ions:Asthma, allergic INHALE TWO PUFFS BY MOUTH TWICE DAILY. RINSE MOUTH AFTER EACH USE 30.6 g 1 09/27/2022 Active Ipratropium-Albute rol 0.5-2.5 (3) MG/3ML Inhalation [...] 8.0% (HCC) inject contents of 1 syringe (0.5 ml) subcutaneously once weekly 2 mL 5 11/16/2022 Active Ezetimibe 10 MG Oral Tablet (Zetia)Indications [...] 01/31/2023 Active LORazepam 0.5 MG Oral Tablet (Ativan)Indication [...] times daily 405 Tablet 1 03/09/2023 Active Vkjmbhatgd-PTAB-Li ffeine 50-325-40 MG Oral Tablet (Fioricet)Indicati ons:Episodic tension-type headache, not intractable TAKE ONE OR TWO TABLETS BY MOUTH EVERY FOUR HOURS NEEDED, NO MORE THAN 6 TABLETS A DAY 30 Tablet 0 03/20/2023 Active HYDROcodone-Acetam inophen 5-325 MG Oral TabletIndications: Cervicalgia Take 1 Tablet by mouth every 8 hours as needed for Pain, Mild. 90 Tablet 0 03/31/2023 Active documented as of this encounter (statuses as of 04/04/2023) Active Problems Problem Noted Date Diagnosed Date [...] as of this encounter (statuses as of 04/04/2023) Resolved Problems Problem Noted Date Diagnosed Date [...] as of this encounter (statuses as of 04/04/2023) Immunizations Name Administration Dates Next Due Pneumococcal [...] Preserve, Inj 03/06/2011,04/06/2009,04/09/2008,03/06 TD, Preservative Free 01/06/2009 documented as of this encounter Social History [...] on file documented as of this encounter Plan of Treatment Upcoming Encounters Date Type Department Care Team (Late st Contact Info) Description 08/04/2023 2:20 PM EST Office Visit [facility] [address] [place] [address] Tiffanie Olsen MD [address] [place] [address] 09/07/2023 1:00 PM EDT Office Visit Cardiology, [facility] [address] [facility] [place] [address] Lynette Christian CRNP [address] [place] [address] 10/04/2023 1:00 PM EDT Office Visit [facility] [address] [place] [facility] [place] [phone] OctoberHarman MD [address] [place] [address] Pending Results Name Type Priority Associated Diagnoses Date /Time HEMOGLOBIN A1C Lab Routine Type 2 diabetes mellitus with hemoglobin A1c goal of less than 8.0% (HCC) 04/04/2023 1:52 PM EDT COMPREHENSIVE METABOLIC PANEL Lab Routine Type 2 diabetes mellitus with hemoglobin A1c goal of less than 8.0% ([facility]) Chronic kidney disease, stage 3a (HCC) 04/04/2023 1:52 PM EDT LIPID PANEL WITH DIRECT LDL IF TG IS HIGH Lab Routine Type 2 diabetes mellitus with hemoglobin A1c goal of less than 8.0% ([facility]) 04/04/2023 1:52 PM EDT Health Maintenance Due Date Last Done Comments COVID-19 Vaccine (#1) 02/23/1936 Alpha-1 Antitrypsin 08/24/1953 Zoster Vaccines (1 of 2) 08/24/1987 Hepatitis B (1 of 3 - Risk 3-dose series) 1997 DTaP,Tdap,and Td Vaccines (1 - Tdap) 01/07/2009 01/06/2009, 01/03/1995, 01/03/1995 CKD HGB USE SMARTSET 83137 04/27/201804/27, 05/22/2012, 05/17/2011, Additional history exists Mammogram 08/26/2019 08/25/2018, 01/04, 01/19/2011 (Done elsewhere), Additional history exists Depression Screening 01/26/2020 01/25/2019 Diabetic Eye Exam 06/03/2022 06/03/2021, , 05/10/2018, Additional history exists Albumin/Creatinine Ratio 10/29/2022 022, 10/21/2020, 01/08/2020, Additional history exists Influenza Vaccine (FLU shot) (#1) 2023 03/13/2022, 04/08/2021, 03/08/2019, Additional history exists HbA1c 04/02/2023 10/01/2022, 05/07, 10/29/2021, Additional history exists B-12 10/02/2023 10/01/2022, 04/07, 10/21/2020, Additional history exists CKD PHOS USE SMARTSET 93862 10/02/2023 10/01/2022 Diabetic Foot Exam 10/02/2023 10/01/2022, 1 07/30/2018, 05/02/2018, Additional history exists O2 ASSESSMENT COMPLETED IN PAST YEAR FOR COPD 03/25/2024 03/25/2023 DXA Scan 04/20/2025 04/20/2022, 09/05, 03/06/2007, Additional [...] as of this encounter Visit Diagnoses Diagnosis Type 2 diabetes mellitus with hemoglobin A1c goal of less than 8.0% (HCC) Chronic kidney disease, stage 3a (HCC) documented in this encounter Care Teams Actimize Architect Relationship Specialty Start Date End Date Jose Bowles MD [address] [place] [address] PCP - General Family Medicine 11/04/16 documented as of this encounter
--- OUTSIDE RECORDS SUMMARY | 2023-09-24 21:23 | External Medical Summary | Summary of Care ---
Author Name Unknown Organization [facility] Address [address] [address] Phone [phone] Care Team Providers Care Acoustical Tile Patternmaker Name Role Phone Jose Bowles MD Primary Care Provider +1- [phone] Reason for Visit * Reason Onset Date Comments FYI 02/08/2023 Encounter Details Date Type Department Care Team (Late st Contact Info) Description 02/08/2023 Telephone [facility] [address] [place] [place] [address] Jose Bolwes MD [address] [place] [address] FY Allergies No known active allergiesdocumented as of this encounter (statuses as of 05/10/2023) Medications Medication Sig Dispensed Refills Start Date End Date Status OXYGEN 1L HS ANDPRN 0 01/20/19 99 Active ASPIRIN 81 MG PO CHEWIndications: DM type 2, goal A1c below 7 One pill by mouth once a day with food 0 0 07/31/19 08 Active NITROGLYCERIN 0.4 MG SL SUBLIndications: Observation for suspected coronary artery disease (CAD) 1 Q 5 min as needed with chest pain up to 3 doses in 15 minutes 25 5 04/16/20 08 Active Albuterol Sulfate (ALBUTEROL HFA) 108 (90 BASE) MCG/ACT inhaler Inhale 2 Puffs by mouth every 6 hours as needed for Shortness of Breath. 18 g 1 06/27/19 20 Active ipratropium-albu terol (COMBIVENT RESPIMAT) 20-100 MCG/ACT Inhaler INHALE 1 PUFF 4 TIMES A DAY NEEDED. 12 g 3 07/24/19 20 Active BD Pen Needle Short U/F 31G X 8 MM (Insulin Pen Needle)Indicatio ns:Type 2 diabetes mellitus with hemoglobin A1c goal of less than 8.0% (HCC) use twice a day as directed 200 Each 3 12/04/19 22 Active Omeprazole 20 MG Oral Capsule Delayed Release (PriLOSEC) TAKE 1 CAPSULE BY MOUTH ONCE DAILY for stomach acid 90 Capsule 1 01/30/20 22 Active Triamcinolone Acetonide 0.1 % External Cream (Aristocort)Isela cations:Dermatit is Apply topically to affected area 2 times a day . Apply to neck and chest 80 g 0 02/03/20 22 Active Budesonide-Formo terol Fumarate 160-4.5 MCG/ACT Inhalation Aerosol (Symbicort)Indic ations:Asthma, allergic INHALE TWO PUFFS BY MOUTH TWICE DAILY. RINSE MOUTH AFTER EACH USE 30.6 g 1 09/28/19 23 Active Ipratropium-Albu terol 0.5-2.5 (3) MG/3ML Inhalation Solution (Duoneb)Indicati ons:Extrinsic asthma without complication, unspecified asthma severity, unspecified whether persistent INHALE 1 VIAL VIA NEBULIZER FOUR TIMES DAILY NEEDED FOR SHORTNESS OF BREATH OR WHEEZING 540 mL 1 10/01/19 23 Active Escitalopram Oxalate 20 MG Oral Tablet (Lexapro)Indicat ions:Generalized anxiety disorder Take 1 Tablet by mouth in the morning. 90 Tablet 3 10/02/19 23 Active Ezetimibe 10 MG Oral Tablet (Zetia)Indicatio ns:Dyslipidemia TAKE 1 TABLET BY MOUTH AT BEDTIME for high cholesterol 90 Tablet 1 11/27/19 23 Active Atorvastatin Calcium 10 MG Oral Tablet (Lipitor) TAKE 1 TABLET BY MOUTH AT BEDTIME for high cholesterol 90 Tablet 1 11/27/19 23 Active Carvedilol 25 MG Oral Tablet (Coreg) TAKE 1 TABLET BY MOUTH TWICE A DAY WITH MEALS (breakfast and supper) 180 Tablet 2 12/22/19 23 Active alendronate (FOSAMAX) 70 MG TabletIndication s:Age-related osteoporosis without current pathological fracture Take 1 Tab by mouth once a week. with 8 oz. water 30 minutes before first meal of the day. Remain upright for 30 min after taking tablet. 12 Tab 3 04/05/20 19 023 Discontinued(Dejuan guadalupe preference/disc ontinuation) Lisinopril 5 MG Oral Tablet (Prinivil) Take by mouth 1 Tablet in the morning AND 1 Tablet before bedtime. 180 Tablet 3 03/02/20 22 023 Discontinued Potassium Chloride ER 10 MEQ Oral Tablet Extended Release Take 2 Tablets by mouth in the morning and 2 Tablets before bedtime. 360 Tablet 1 08/23/19 23 023 Discontinued hydrALAZINE HCl 10 MG Oral Tablet (Apresoline) TAKE 1 & 1/2 TABLETS BY MOUTH THREE TIMES DAILY 405 Tablet 1 09/07/19 23 023 Discontinued metFORMIN HCl 500 MG Oral Tablet (Glucophage)Isela cations:Type 2 diabetes mellitus with hemoglobin A1c goal of less than 8.0% (HCC) TAKE 1 TABLET BY MOUTH TWICE DAILY 180 Tablet 1 11/09/19 23 023 Discontinued(Tx dication List Clean Up) Trulicity 0.75 MG/0.5ML Subcutaneous Solution Pen-injector (Dulaglutide)Ind ications:Type 2 diabetes mellitus with hemoglobin A1c goal of less than 8.0% (HCC) inject contents of 1 syringe (0.5 ml) subcutaneously once weekly 2 mL 5 11/17/19 23 023 Discontinued LORazepam 0.5 MG Oral Tablet (Ativan)Indicati ons:Generalized anxiety disorder TAKE 1 TABLET BY MOUTH TWICE DAILY NEEDED 60 Tablet 0 12/30/19 23 023 Discontinued(Re fill) hydrOXYzine HCl 10 MG Oral Tablet (Atarax)Indicati ons:Major depressive disorder TAKE 1 TABLET BY MOUTH THREE TIMES DAILY ONLY NEEDED 100 Tablet 1 02/01/20 23 023 Discontinued HYDROcodone-Acet aminophen 5-325 MG Oral TabletIndication s:Cervicalgia Take 1 Tablet by mouth every 8 hours as needed for Pain, Mild. 90 Tablet 0 02/05/20 23 023 Discontinued(Re fill) documented as of this encounter (statuses as of 05/10/2023) Active Problems Problem Noted Date Diagnosed Date [...] as of this encounter (statuses as of 05/10/2023) Resolved Problems Problem Noted Date Diagnosed Date [...] determined 04/01/2004 05/17/2011 Paroxysmal SVT (supraventricular tachycardia) 10/08/19/2017 Observation for suspected co ronary artery disease (CAD) 04/02/2002 07/31/2007 Urinary incontinence 03/24/2000 018 Overview: ICD-10 update of inactive term Prolapse of vaginal zamorano 03/24/2000 Overview: ICD-10 update of inactive term HYPERTENSION NOS 04/24/2009 Overview: Modified per HTN protocol #16. Major depressive disorder Overview: ICD-10 update of inactive term Menopause 01/25/2012 documented as of this encounter (statuses as of 05/10/2023) Immunizations Name Administration Dates Next Due Pneumococcal [...] encounter Miscellaneous Notes * Telephone Encounter - Enrico Yu OSA - 02/08/2023 2:36 PM EDT Name/Company sending fax: [facility] What fax is pertaining to: pt's diabetic shoes, CMN, and note needs signed Date(s) they sent request: Verified fax number they are sending to is correct (Y or N): yes Amanda calling from [facility] called to state they were sending over a fax form that needs filled out and signed by Dr. Rodriguez regarding pt's diabetic shoes. documented in this encounter Plan of Treatment Upcoming Encounters Date Type Department Care Team (Late st Contact Info) Description 08/04/2023 2:20 PM EST Office Visit Neurology [facility] [address] [facility] [place] [address] Tiffanie Olsen MD [address] [facility] [address] 09/07/2023 1:00 PM EDT Office Visit Cardiology, [facility] [address] [place] [address] Lynette Christian CRNP [address] [place] [address] 10/04/2023 1:00 PM EDT Office Visit Family [facility] [address] [place] [phone] Harman Rodriguez MD [address] [place] [address] Health Maintenance Due Date Last Done Comments Alpha-1 Antitrypsin 08/24/1953 Hepatitis B (1 of 3 - Risk 3-dose series) 1997 DTaP,Tdap,and Td Vaccines (1 - Tdap) 01/07/2009 01/06/2009, 01/03/1995, 01/03/1995 CKD HGB USE SMARTSET 65841 04/27/201804/27, 05/22/2012, 05/17/2011, Additional history exists Mammogram [...] Additional history exists CKD PHOS USE SMARTSET 35860 10/02/2023 10/01/2022 Diabetic Foot Exam 10/02/2023 10/01/2022, [...] filedocumented as of this encounter Care Teams Acoustical Tile Patternmaker Relationship Specialty Start Date End Date Jose Bowles MD [address] [facility] [place] [address] PCP - General Family Medicine 11/04/16 documented as of this encounter
--- OUTSIDE RECORDS SUMMARY | 2023-09-24 21:23 | External Medical Summary | Summary of Care ---
Author Name Unknown Organization [facility] Address [address] [facility] [place] [address] Phone [phone] Care Team Providers Care Periodicals Library Assistant Name Role Phone Jose Bowles MD Primary Care Provider +1- [phone] Reason for Visit * Reason Comments eRx-Medication Refill Encounter Details Date Type Department Care Team (Late st Contact Info) Description 11/15/[address] [facility] [address] [place] [address] OctoberJeff MD [address] [place] [address] Dyslipidemia*; Type 2 diabetes mellitus with hemoglobin A1c goal of less than 8.0% (HCC); Encounter for long-term (current) use of medications; Routine medical exam; HTN, goal below 140/90; Chronic kidney disease, stage 3a ([facility]) Allergies No known active allergiesdocumented as of this encounter (statuses as of 04/18/2023) Medications Medication Sig Dispensed Refills Start Date [...] hemoglobin A1c goal of less than 8.0% ([facility]) use twice a day as directed [...] morning. 90 Tablet 3 10/02/19 23 Active Trulicity 0.75 MG/0.5ML Subcutaneous Solution Pen-injector (Dulaglutide)Ind ications:Type 2 diabetes mellitus with hemoglobin A1c goal of less than 8.0% ([facility]) inject contents of 1 syringe (0.5 ml) subcutaneously once weekly 2 mL 5 11/17/19 23 Active alendronate (FOSAMAX) 70 MG TabletIndication s:Age-related osteoporosis without current pathological fracture Take 1 Tab by mouth once a week. with 8 oz. water 30 minutes before first meal of the day. Remain upright for 30 min after taking tablet. 12 Tab 3 04/05/20 19 023 Discontinued(Dejuan guadalupe preference/disc ontinuation) Ezetimibe 10 MG Oral Tablet (Zetia)Indicatio ns:Dyslipidemia TAKE 1 TABLET BY MOUTH AT BEDTIME FOR HIGH CHOLESTEROL 90 Tablet 2 01/19/20 22 023 Discontinued Atorvastatin Calcium 10 MG Oral Tablet (Lipitor) TAKE 1 TABLET BY MOUTH AT BEDTIME FOR HIGH CHOLESTEROL 90 Tablet 2 01/19/20 22 023 Discontinued Lisinopril 5 MG Oral Tablet (Prinivil) Take by mouth 1 Tablet in the morning AND 1 Tablet before bedtime. 180 Tablet 3 03/02/20 22 023 Discontinued Carvedilol 25 MG Oral Tablet (Coreg) TAKE ONE TABLET BY MOUTH TWICE A DAY WITH MEALS (breakfast and supper) 180 Tablet 1 06/25/19 23 023 Discontinued Potassium Chloride ER 10 MEQ Oral Tablet Extended Release Take 2 Tablets by mouth in the morning and 2 Tablets before bedtime. 360 Tablet 1 08/23/19 23 023 Discontinued Trulicity 0.75 MG/0.5ML Subcutaneous Solution Pen-injector (Dulaglutide)Ind ications:Type 2 diabetes mellitus with hemoglobin A1c goal of less than 8.0% ([facility]) INJECT THE CONTENTS OF ONE SYRINGE UNDER THE SKIN ONCE WEEKLY 2 mL 2 08/24/19 23 023 Discontinued hydrALAZINE HCl 10 MG Oral Tablet (Apresoline) TAKE 1 & 1/2 TABLETS BY MOUTH THREE TIMES DAILY 405 Tablet 1 09/07/19 23 023 Discontinued HYDROcodone-Acet aminophen 5-325 MG Oral TabletIndication s:Cervicalgia Take 1 Tablet by mouth every 8 hours as needed for Pain, Mild. 90 Tablet 0 10/16/19 23 023 Discontinued(Re fill) hydrOXYzine HCl 10 MG Oral Tablet (Atarax)Indicati ons:Major depressive disorder TAKE 1 TABLET BY MOUTH THREE TIMES DAILY ONLY NEEDED 100 Tablet 2 10/29/19 23 023 Discontinued Butalbital-APAP- Caffeine 50-325-40 MG Oral Tablet (Fioricet)Indica tions:Episodic tension-type headache, not intractable TAKE ONE OR TWO TABLETS BY MOUTH EVERY FOUR HOURS NEEDED, NO MORE THAN 6 TABLETS A DAY 30 Tablet 0 11/06/19 23 023 Discontinued(Re fill) metFORMIN HCl 500 MG Oral Tablet (Glucophage)Isela cations:Type 2 diabetes mellitus with hemoglobin A1c goal of less than 8.0% (HCC) TAKE 1 TABLET BY MOUTH TWICE DAILY 180 Tablet 1 11/09/19 23 023 Discontinued(Nh dication List Clean Up) LORazepam 0.5 MG Oral Tablet (Ativan)Indicati ons:Generalized anxiety disorder TAKE 1 TABLET BY MOUTH TWICE DAILY NEEDED 60 Tablet 0 11/12/19 23 023 Discontinued(Re fill) documented as of this encounter (statuses as of 04/18/2023) Active Problems Problem Noted Date Diagnosed Date [...] as of this encounter (statuses as of 04/18/2023) Resolved Problems Problem Noted Date Diagnosed Date [...] as of this encounter (statuses as of 04/18/2023) Immunizations Name Administration Dates Next Due Pneumococcal [...] encounter Miscellaneous Notes * Telephone Encounter - Elizabeth Shelley CPhT - 04/18/2023 7:18 PM EST Lab work completed. Thank you, Elizabeth Shelley CPhT [employer] [facility] ([facility]) (formerly Telepharmacy) 04/18/2023 7:18 PM * Telephone Encounter - Angie Zuluaga [facility] - 11/16/2022 10:31 AM EDT Signed Prescriptions: Disp Refills Trulicity 0.75 MG/0.5ML Subcutaneous Solut*2 mL 5 Sig: inject contents of 1 syringe (0.5 ml) subcutaneously once weekly Authorizing Provider: JEFF THOMAS Ordering User: ANGIE ZULUAGA * Telephone Encounter - Angie Zuluaga RPh - 11/16/2022 10:22 AM EDT Provided 30 days supply with 5 refill(s) until upcoming appointment. Per refill protocol patient should have LDL on file within past year. Reviewed AMP report, Care Gaps/Health Maintenance, medications list, and for any routine labs typically ordered for this patient. Lab orders placed. Please contact patient to advise of labs ordered for blood draw AND URINE specimen (patient will have to be able to void to provide sample). Recommend patient to fast if able for labs. Patient may still have water and regular medications. Advise to obtain labs before requesting the next refill. Thank you, Angie Zuluaga, Maury, RANDOLPH Clinical Pharmacist [facility] ([facility]) (formerly Telepharmacy) 11/16/22 10:28 AM [phone] documented in this encounter Plan of Treatment Upcoming Encounters Date Type Department Care Team (Late st Contact Info) Description 08/04/2023 2:20 PM EST Office Visit Neurology [facility] [address] [facility] [place] [address] Tiffanie Olsen MD [address] [place] [address] 09/07/2023 1:00 PM EDT Office Visit Cardiology, [facility] [address] [place] [address] Lynette Christian CRNP [address] [place] [address] 10/04/2023 1:00 PM EDT Office Visit [facility] [address] [facility] [address] Jeff Thomas MD [address] [place] [address] Scheduled Orders Name Type Priority Associated Diagnoses Orde r Schedule LIPID PANEL WITH DIRECT LDL IF TG IS HIGH Lab Routine Dyslipidemia Encounter for long-term (current) use of medications Routine medical exam Expected: 11/30/2022 (Approximate), Expires: 11/17/2023 PTH Lab Routine Encounter for long-term (current) use of medications Routine medical exam HTN, goal below 140/90 Chronic kidney disease, stage 3a (HCC) Expected: 11/23/2022 (Approximate), Expires: 11/17/2023 Health Maintenance Due Date Last Done Comments Alpha-1 Antitrypsin 08/24/1953 Hepatitis B (1 of 3 - Risk 3-dose series) 1997 DTaP,Tdap,and Td Vaccines (1 - Tdap) 01/07/2009 01/06/2009, 01/03/1995, 01/03/1995 CKD HGB USE SMARTSET 50221 04/27/201804/27, 05/22/2012, 05/17/2011, Additional history exists Mammogram [...] Additional history exists CKD PHOS USE SMARTSET 80737 10/02/2023 10/01/2022 Diabetic Foot Exam 10/02/2023 10/01/2022, [...] as of this encounter Visit Diagnoses Diagnosis Dyslipidemia- Primary Other and unspecified hyperlipidemia Type 2 diabetes mellitus with hemoglobin A1c goal of less than 8.0% (HCC) Encounter for long-term (current) use of medications Encounter for long-term (current) use of other medications Routine medical exam Routine general medical examination at a health care facility HTN, goal below 140/90 Unspecified essential hypertension Chronic kidney disease, stage 3a (HCC) documented in this encounter Care Teams Periodicals Library Assistant Relationship Specialty Start Date End Date Jose Bowles MD [address] [place] [address] PCP - General Family Medicine 11/04/16 documented as of this encounter
--- OUTSIDE RECORDS SUMMARY | 2023-09-24 21:23 | External Medical Summary | Summary of Care ---
Author Name Unknown Organization [facility] Address [address] [place] [facility] [place] [place] [address] Phone [phone] Care Team Providers Care Scrap Metal Burner Name Role Phone Jose Fitzpatrick MD Primary Care Provider [phone]- [phone] Reason for Visit * Reason Onset Date Comments Medication Refill 04/23/2023 Encounter Details Date Type Department Care Team (Late st Contact Info) Description 04/23/2023 Refill [facility] [address] [place] [facility] [place] [address] Jose Fitzpatrick MD [address] [place] [address] Generalized anxiety disorder Allergies No known active allergiesdocumented as of this encounter (statuses as of 04/25/2023) Medications Medication Sig Dispensed Refills Start Date [...] [facility]) inject contents of 1 syringe (0.5 ml) [...] Pain, Mild. 90 Tablet 0 03/31/2023 Active Okfulovets-GSNQ-X affeine 50-325-40 MG Oral Tablet (Fioricet)Indicat ions:Episodic tension-type headache, not intractable TAKE ONE OR TWO TABLETS BY MOUTH EVERY FOUR HOURS NEEDED, NO MORE THAN 6 TABLETS A DAY 30 Tablet 0 04/08/2023 Active hydrOXYzine HCl 10 MG Oral Tablet (Atarax)Indicatio ns:Major depressive disorder TAKE 1 TABLET BY MOUTH THREE TIMES DAILY only NEEDED 100 Tablet 1 04/10/2023 Active LORazepam 0.5 MG Oral Tablet (Ativan)Indicatio ns:Generalized anxiety disorder TAKE 1 TABLET BY MOUTH TWICE DAILY NEEDED 60 Tablet 0 04/25/2023 Active LORazepam 0.5 MG Oral Tablet (Ativan)Indicatio ns:Generalized anxiety disorder TAKE 1 TABLET BY MOUTH TWICE DAILY NEEDED 60 Tablet 0 03/04/2023 04/23/20 23 Discontinu ed(Refill) documented as of this encounter (statuses as of 04/25/2023) Active Problems Problem Noted Date Diagnosed Date [...] as of this encounter (statuses as of 04/25/2023) Resolved Problems Problem Noted Date Diagnosed Date [...] as of this encounter (statuses as of 04/25/2023) Immunizations Name Administration Dates Next Due COVID-19, [...] Telephone Encounter - Jose Fitzpatrick MD - 04/25/2023 12:56 PM ESTSigned Prescriptions: Disp Refills LORazepam 0.5 MG Oral Tablet (Ativan) 60 Tab*0 Sig: TAKE 1 TABLET BY MOUTH TWICE DAILY NEEDEDAuthorizing Provider: JOSE FITZPATRICK * Telephone Encounter - Dony Gonzalez [facility] - 04/25/2023 9:42 AM ESTPending Prescriptions: Disp Refills LORazepam 0.5 MG Oral Tablet (Ativan) 60 Tab*0 Sig: TAKE 1 TABLET BY MOUTH TWICE DAILY NEEDED * Telephone Encounter - Dony Gonzalez [facility] - 04/25/2023 9:41 AM EST I have reviewed the patients controlled substance dispensing history in the Prescription Drug Monitoring Program in compliance with the [facility] regulations before prescribing a controlled substance. PDMP checked on 04/25/2023. Pending Prescriptions: Disp Refills LORazepam 0.5 MG Oral Tablet (Ativan) 60 Tab*0 Sig: TAKE 1 TABLET BY MOUTH TWICE DAILY NEEDED Last Visit: 04/04/2023 (in office), 07/01/2020 (telemedicine) Next Visit: 10/04/2023 Date medication was last filled: 03/04/23 Date medication is due for refill: 04/02/23 Pharmacy: [id number] [facility] Is this request for a controlled substance? Yes and Urine Drug Screen Not completed Toxicology results: No results found. However, due to the size of the patient record, not all encounters were searched.Please check Results Review for a complete set of results. Please approve if appropriate. Thank You, Dony Beckham [facility] Clinical Pharmacist Centralized Clinical Pharmacy Services (CCPS) (formerly Telepharmacy) 04/25/2023, 9:42 AM documented in this encounter Plan of Treatment Upcoming Encounters Date Type Department Care Team (Late st Contact Info) Description 08/04/2023 2:20 PM EST Office Visit Neurology [facility] [address] [facility] [place] [address] Tiffanie Olsen MD [address] [facility] [address] 09/07/2023 1:00 PM EDT Office Visit Cardiology, [facility] [address] [facility] [place] [address] Lynette Christian CRNP [address] [facility] [address] 10/04/2023 1:00 PM EDT Office Visit [facility] [address] [place] [id number] OctoberHarman MD [address], [place] [phone] Health Maintenance Due Date Last Done Comments Alpha-1 Antitrypsin 08/24/1953 Hepatitis B (1 of 3 - Risk 3-dose series) 1997 DTaP,Tdap,and Td Vaccines (1 - Tdap) 01/07/2009 01/06/2009, 01/03/1995, 01/03/1995 CKD HGB USE SMARTSET 68111 04/27/201804/27, 05/22/2012, 05/17/2011, Additional history exists Mammogram [...] Additional history exists CKD PHOS USE SMARTSET 35421 10/02/2023 10/01/2022 Diabetic Foot Exam 10/02/2023 10/01/2022, [...] as of this encounter Visit Diagnoses Diagnosis Generalized anxiety disorder documented in this encounter Care Teams Scrap Metal Burner Relationship Specialty Start Date End Date Jose Fitzpatrick MD [address] [place] [address] PCP - General Family Medicine 11/04/16 documented as of this encounter
--- OUTSIDE RECORDS SUMMARY | 2023-09-24 21:23 | External Medical Summary | Summary of Care ---
Author Name Unknown Organization [facility] Address [address] [place] [place] [address] Phone [phone] Care Team Providers Care Elevator Operator Freight Name Role Phone Jose Bowles MD Primary Care Provider +1- [phone] Reason for Visit * Reason Comments eRx-Medication Refill Encounter Details Date Type Department Care Team (Late st Contact Info) Description 05/06/2023 Refill [facility] [address] [place] [address] OctoberJeff MD [address] [place] [address] Type 2 diabetes mellitus with hemoglobin A1c goal of less than 8.0% ([facility]) Allergies No known active allergiesdocumented as of this encounter (statuses as of 05/06/2023) Medications Medication Sig Dispensed Refills Start Date End Date Status OXYGEN 1L HS ANDPRN 0 9 Active ASPIRIN 81 MG PO CHEWIndications: DM type 2, goal A1c below 7 One pill by mouth once a day with food 0 0 8 Active NITROGLYCERIN 0.4 MG SL SUBLIndications: Observation for suspected coronary artery disease (CAD) 1 Q 5 min as needed with chest pain up to 3 doses in 15 minutes 25 5 8 Active Albuterol Sulfate (ALBUTEROL HFA) 108 (90 BASE) MCG/ACT inhaler Inhale 2 Puffs by mouth every 6 hours as needed for Shortness of Breath. 18 g 1 0 Active ipratropium-albu terol (COMBIVENT RESPIMAT) 20-100 MCG/ACT [...] stomach acid 90 Capsule 1 2 Active Triamcinolone Acetonide 0.1 % External Cream (Aristocort)Isela cations:Dermatit is Apply topically to affected area 2 times a day . Apply to neck and chest 80 g 0 2 Active Budesonide-Formo terol Fumarate 160-4.5 MCG/ACT Inhalation Aerosol (Symbicort)Indic ations:Asthma, allergic INHALE TWO PUFFS BY MOUTH TWICE DAILY. RINSE MOUTH AFTER EACH USE 30.6 g 1 3 Active Ipratropium-Albu terol 0.5-2.5 (3) MG/3ML Inhalation Solution (Duoneb)Indicati ons:Extrinsic asthma without complication, unspecified asthma severity, unspecified whether persistent INHALE 1 VIAL VIA NEBULIZER FOUR TIMES DAILY NEEDED FOR SHORTNESS OF BREATH OR WHEEZING 540 mL 1 3 Active Escitalopram Oxalate 20 MG Oral Tablet (Lexapro)Indicat ions:Generalized anxiety disorder Take 1 Tablet by mouth in the morning. 90 Tablet 3 3 Active Ezetimibe 10 MG Oral Tablet (Zetia)Indicatio ns:Dyslipidemia TAKE 1 TABLET BY MOUTH AT BEDTIME for high cholesterol 90 Tablet 1 3 Active Atorvastatin Calcium 10 MG Oral Tablet (Lipitor) TAKE 1 TABLET BY MOUTH AT BEDTIME for high cholesterol 90 Tablet 1 3 Active Carvedilol 25 MG Oral Tablet (Coreg) TAKE 1 TABLET BY MOUTH TWICE A DAY WITH MEALS (breakfast and supper) 180 Tablet 2 3 Active Lisinopril 5 MG Oral Tablet (Prinivil) TAKE ONE TABLET BY MOUTH IN THE MORNING AND ONE BEFORE BEDTIME 180 Tablet 1 10/04/202 3 Active hydrALAZINE HCl 10 MG Oral Tablet (Apresoline) take 1 & 1/2 tablets by mouth three times daily 405 Tablet 1 3 Active HYDROcodone-Acet aminophen 5-325 MG Oral TabletIndication s:Cervicalgia Take 1 Tablet by mouth every 8 hours as needed for Pain, Mild. 90 Tablet 0 3 Active hydrOXYzine HCl 10 MG Oral Tablet (Atarax)Indicati ons:Major depressive disorder TAKE 1 TABLET BY MOUTH THREE TIMES DAILY only NEEDED 100 Tablet 1 3 Active LORazepam 0.5 MG Oral Tablet (Ativan)Indicati ons:Generalized anxiety disorder TAKE 1 TABLET BY MOUTH TWICE DAILY NEEDED 60 Tablet 0 3 Active Butalbital-APAP- Caffeine 50-325-40 MG Oral Tablet (Fioricet)Indica tions:Episodic tension-type headache, not intractable TAKE ONE OR TWO TABLETS BY MOUTH EVERY FOUR HOURS NEEDED, NO MORE THAN 6 TABLETS A DAY 30 Tablet 0 3 Active Trulicity 0.75 MG/0.5ML Subcutaneous Solution Pen-injector (Dulaglutide)Ind ications:Type 2 diabetes mellitus with hemoglobin A1c goal of less than 8.0% (HCC) inject contents of 1 syringe (0.75mg) under the skin once weekly 2 mL 5 3 Active Trulicity 0.75 MG/0.5ML Subcutaneous Solution Pen-injector (Dulaglutide)Ind ications:Type 2 diabetes mellitus with hemoglobin A1c goal of less than 8.0% (HCC) inject contents of 1 syringe (0.5 ml) subcutaneously once weekly 2 mL 5 3 05/06/20 23 Discontinued documented as of this encounter (statuses as of 05/06/2023) Active Problems Problem Noted Date Diagnosed Date [...] as of this encounter (statuses as of 05/06/2023) Resolved Problems Problem Noted Date Diagnosed Date [...] as of this encounter (statuses as of 05/06/2023) Immunizations Name Administration Dates Next Due COVID-19, [...] Notes * Telephone Encounter - Claribel Aguiar [facility] - 05/06/2023 12:07 PM ESTSigned Prescriptions: Disp Refills Trulicity 0.75 MG/0.5ML Subcutaneous Solut*2 mL 5 Sig: inject contents of 1 syringe (0.75mg) under the skin once weeklyAuthorizing Provider: JEFF THOMASOrderingUser: CLARIBEL AGUIAR documented in this encounter Plan of Treatment Upcoming Encounters Date Type Department Care Team (Late st Contact Info) Description 08/04/2023 2:20 PM EST Office Visit Neurology [facility] [address] [facility] [place] [address] Tiffanie Olsen MD [address] [facility] [place] [address] 09/07/2023 1:00 PM EDT Office Visit Cardiology, [facility] [address] [place] [address] Lynette Christian CRNP [address] [place] [address] 10/04/2023 1:00 PM EDT Office Visit Family [facility] [address] [place] [phone] Jeff Thomas MD [address], [place] [phone] Health Maintenance Due Date Last Done Comments Alpha-1 Antitrypsin 08/24/1953 Hepatitis B (1 of 3 - Risk 3-dose series) 1997 DTaP,Tdap,and Td Vaccines (1 - Tdap) 01/07/2009 01/06/2009, 01/03/1995, 01/03/1995 CKD HGB USE SMARTSET 45574 04/27/201804/27, 05/22/2012, 05/17/2011, Additional history exists Mammogram [...] Additional history exists CKD PHOS USE SMARTSET 24578 10/02/2023 10/01/2022 Diabetic Foot Exam 10/02/2023 10/01/2022, [...] A1c goal of less than 8.0% (HCC) documented in this encounter Care Teams Elevator Operator Freight Relationship Specialty Start Date End Date Jose Bowles MD [address] [facility] [place] [address] PCP - General Family Medicine 11/04/16 documented as of this encounter
--- OUTSIDE RECORDS SUMMARY | 2023-09-24 21:23 | External Medical Summary | Summary of Care ---
Author Name Unknown Organization [facility] Address [address] [place] [address] Phone [phone] Care Team Providers Care Atmospheric Physics Professor Name Role Phone Freddy Fitzpatrick MD Primary Care Provider +1- [phone] Reason for Visit * Reason Comments eRx-Medication Refill Encounter Details Date Type Department Care Team (Late st Contact Info) Description 04/08/2023 Refill [facility] [address] [place] [address] Freddy Fitzpatrick MD [address] [place] [address] Major depressive disorder Allergies No known active allergiesdocumented as of this encounter (statuses as of 04/10/2023) Medications Medication Sig Dispensed Refills Start Date [...] the morning. 90 Tablet 3 3 Active Trulicity 0.75 MG/0.5ML Subcutaneous Solution Pen-injector (Dulaglutide)Ind ications:Type 2 diabetes mellitus with hemoglobin A1c goal of less than 8.0% (HCC) inject contents of 1 syringe (0.5 ml) subcutaneously once weekly 2 mL 5 3 Active Ezetimibe 10 MG Oral Tablet [...] and supper) 180 Tablet 2 3 Active LORazepam 0.5 MG Oral Tablet (Ativan)Indicati ons:Generalized anxiety disorder TAKE 1 TABLET BY MOUTH TWICE DAILY NEEDED 60 Tablet 0 3 Active Lisinopril 5 MG Oral Tablet (Prinivil) TAKE ONE TABLET BY MOUTH IN THE MORNING AND ONE BEFORE BEDTIME 180 Tablet 1 3 Active hydrALAZINE HCl 10 MG Oral Tablet (Apresoline) take 1 & 1/2 tablets by mouth three times daily 405 Tablet 1 3 Active HYDROcodone-Acet aminophen 5-325 MG Oral TabletIndication s:Cervicalgia Take 1 Tablet by mouth every 8 hours as needed for Pain, Mild. 90 Tablet 0 3 Active Butalbital-APAP- Caffeine 50-325-40 MG Oral Tablet (Fioricet)Indica tions:Episodic tension-type headache, not intractable TAKE ONE OR TWO TABLETS BY MOUTH EVERY FOUR HOURS NEEDED, NO MORE THAN 6 TABLETS A DAY 30 Tablet 0 3 Active hydrOXYzine HCl 10 MG Oral Tablet (Atarax)Indicati ons:Major depressive disorder TAKE 1 TABLET BY MOUTH THREE TIMES DAILY only NEEDED 100 Tablet 1 3 Active hydrOXYzine HCl 10 MG Oral Tablet (Atarax)Indicati ons:Major depressive disorder TAKE 1 TABLET BY MOUTH THREE TIMES DAILY ONLY NEEDED 100 Tablet 1 3 04/10/20 23 Discontinued documented as of this encounter (statuses as of 04/10/2023) Active Problems Problem Noted Date Diagnosed Date [...] as of this encounter (statuses as of 04/10/2023) Resolved Problems Problem Noted Date Diagnosed Date [...] as of this encounter (statuses as of 04/10/2023) Immunizations Name Administration Dates Next Due Pneumococcal [...] Telephone Encounter - Freddy Fitzpatrick MD - 04/10/2023 8:39 PM ESTSigned Prescriptions: Disp Refills hydrOXYzine HCl 10 MG Oral Tablet (Atarax) 100 Ta*1 Sig: TAKE 1 TABLET BY MOUTH THREE TIMES DAILY only NEEDEDAuthorizing Provider: FREDDY FITZPATRICK * Telephone Encounter - [address], [facility] In[facility] - 04/10/2023 2:37 PM EST Pending Prescriptions: Disp Refills hydrOXYzine HCl 10 MG Oral Tablet (Atarax) 100 Ta*1 Sig: TAKE 1 TABLET BY MOUTH THREE TIMES DAILY only NEEDED * Telephone Encounter - Alex Pablo [facility] - 04/09/2023 7:24 PM EDT Pending Prescriptions: Disp Refills hydrOXYzine HCl 10 MG Oral Tablet (Atarax) 100 Ta*1 Sig: TAKE 1 TABLET BY MOUTH THREE TIMES DAILY only NEEDED * Telephone Encounter - Alex Pablo [facility] - 04/09/2023 7:23 PM EDT Pharmacists can only authorize hydroxyzine refills when used for allergy or itching. Please approveif appropriate. Thanks, Alex Pablo PharmD, [facility] PGY-1 Sales And Marketing Manager - [facility] 04/09/2023, 7:23 PM documented in this encounter Plan of Treatment Upcoming Encounters Date Type Department Care Team (Late st Contact Info) Description 08/04/2023 2:20 PM EST Office Visit Neurology [facility] [address] [facility] [place] [address] Tiffanie Olsen MD [address] [facility] [place] [address] 09/07/2023 1:00 PM EDT Office Visit Cardiology, [facility] [address] [facility] [place] [address] Lynette Christian CRNP [address] [place] [address] 10/04/2023 1:00 PM EDT Office Visit Family [facility] [address] [place] [phone] October, Harman Steen MD [address], [place] [phone] Health Maintenance Due Date Last Done Comments COVID-19 Vaccine (#1) 02/23/1936 Alpha-1 Antitrypsin 08/24/1953 Hepatitis B (1 of 3 - Risk 3-dose series) 1997 DTaP,Tdap,and Td Vaccines (1 - Tdap) 01/07/2009 01/06/2009, 01/03/1995, 01/03/1995 CKD HGB USE SMARTSET 68781 04/27/201804/27, 05/22/2012, 05/17/2011, Additional history exists Mammogram [...] Additional history exists CKD PHOS USE SMARTSET 36605 10/02/2023 10/01/2022 Diabetic Foot Exam 10/02/2023 10/01/2022, [...] unspecified documented in this encounter Care Teams Atmospheric Physics Professor Relationship Specialty Start Date End Date Freddy Fitzpatrick MD [address] [place] [address] PCP - General Family Medicine 11/04/16 documented as of this encounter
--- OUTSIDE RECORDS SUMMARY | 2023-09-24 21:23 | External Medical Summary | Summary of Care ---
Author Name Unknown Organization [facility] Address [address] [place] [address] Phone [phone] Care Team Providers Care Gasket Maker Name Role Phone Jose Bowles MD Primary Care Provider +1- [phone] Reason for Visit * Reason Comments eRx-Medication Refill Encounter Details Date Type Department Care Team (Late st Contact Info) Description 05/08/2023 Refill [facility] [address] [place] [address] Jose Bowles MD [address] [place] [address] Type 2 diabetes mellitus with hemoglobin A1c goal of less than 8.0% ([facility]) Allergies No known active allergiesdocumented as of this encounter (statuses as of 05/09/2023) Medications Medication Sig Dispensed Refills Start Date [...] and chest 80 g 0 02/02/2022 Active Budesonide-Formoter ol Fumarate 160-4.5 MCG/ACT Inhalation Aerosol (Symbicort)Indicati ons:Asthma, allergic INHALE TWO PUFFS BY MOUTH TWICE DAILY. RINSE MOUTH AFTER EACH USE 30.6 g 1 09/27/2022 Active Ipratropium-Albuter ol 0.5-2.5 (3) MG/3ML Inhalation [...] DAILY NEEDED 60 Tablet 0 04/25/2023 Active Cfosrunzdm-JNUV-Ldu feine 50-325-40 MG Oral Tablet (Fioricet)Indicatio ns:Episodic [...] once weekly 2 mL 5 05/06/2023 Active documented as of this encounter (statuses as of 05/09/2023) Active Problems Problem Noted Date Diagnosed Date [...] as of this encounter (statuses as of 05/09/2023) Resolved Problems Problem Noted Date Diagnosed Date [...] as of this encounter (statuses as of 05/09/2023) Immunizations Name Administration Dates Next Due COVID-19, [...] encounter Miscellaneous Notes * Telephone Encounter - Ethan Slater [facility] - 05/09/2023 9:59 AM ESTRefused Prescriptions: Disp Refills metFORMIN HCl 500 MG Oral Tablet (Glucopha*180 Ta*0 Sig: TAKE 1TABLET BY MOUTH TWICE DAILYRefused By: ETHAN SLATER for Refusal: Course of treatment co mplete documented in this encounter Plan of Treatment Upcoming Encounters Date Type Department Care Team (Late st Contact Info) Description 08/04/2023 2:20 PM EST Office Visit Neurology [facility] [address] [place] [address] Tiffanie Olsen MD [address] [facility] [address] 09/07/2023 1:00 PM EDT Office Visit Cardiology, [facility] [address] [place] [address] Lynette Christian CRNP [address] [place] [address] 10/04/2023 1:00 PM EDT Office Visit Family [facility] [address] [place] [phone] OctoberHarman MD [address] [place] [address] Health Maintenance Due Date Last Done Comments Alpha-1 Antitrypsin 08/24/1953 Hepatitis B (1 of 3 - Risk 3-dose series) 1997 DTaP,Tdap,and Td Vaccines (1 - Tdap) 01/07/2009 01/06/2009, 01/03/1995, 01/03/1995 CKD HGB USE SMARTSET 09669 04/27/201804/27, 05/22/2012, 05/17/2011, Additional history exists Mammogram [...] Additional history exists CKD PHOS USE SMARTSET 29725 10/02/2023 10/01/2022 Diabetic Foot Exam 10/02/2023 10/01/2022, [...] (HCC) documented in this encounter Care Teams Gasket Maker Relationship Specialty Start Date End Date Jose Bowles MD [address] [place] [address] PCP - General Family Medicine 11/04/16 documented as of this encounter
--- OUTSIDE RECORDS SUMMARY | 2023-09-24 21:24 | External Medical Summary | Summary of Care ---
Author Name Unknown Organization [facility] Address [address] [place] [address] Phone [phone] Care Team Providers Care Linoleum Layer Apprentice Name Role Phone Jose Bowles MD Primary Care Provider +1- [phone] Reason for Visit * Reason Onset Date Comments Health Maintenance 03/31/2023 Encounter Details Date Type Department Care Team (Late st Contact Info) Description 03/31/2023 Telephone [facility] [address] [place] [facility] [place] [address] Jose Bowles MD [address] [place] [address] Health Maintenance Allergies No known active allergiesdocumented as of this encounter (statuses as of 03/31/2023) Medications Medication Sig Dispensed Refills Start Date [...] in 15 minutes 25 5 04/16/2008 Active alendronate (FOSAMAX) 70 MG TabletIndications: Age-related osteoporosis without current pathological fracture Take 1 Tab by mouth once a week. with 8 oz. water 30 minutes before first meal of the day. Remain upright for 30 min after taking tablet. 12 Tab 3 04/05/2019 Active Additional Information Patient not taking.Reported on 03/25/2023 Albuterol Sulfate (ALBUTEROL HFA) 108 (90 BASE) [...] the morning. 90 Tablet 3 10/01/2022 Active metFORMIN HCl 500 MG Oral Tablet (Glucophage)Indica tions:Type 2 diabetes mellitus with hemoglobin A1c goal of less than 8.0% (HCC) TAKE 1 TABLET BY MOUTH TWICE DAILY 180 Tablet 1 11/08/2022 Active Trulicity 0.75 MG/0.5ML Subcutaneous Solution Pen-injector [...] ONLY NEEDED 100 Tablet 1 01/31/2023 Active HYDROcodone-Acetam inophen 5-325 MG Oral TabletIndications: Cervicalgia Take 1 Tablet by mouth every 8 hours as needed for Pain, Mild. 90 Tablet 0 02/04/2023 Active LORazepam 0.5 MG Oral Tablet (Ativan)Indication [...] times daily 405 Tablet 1 03/09/2023 Active Oiwtstxbwr-HRAQ-Ij ffeine 50-325-40 MG Oral Tablet (Fioricet)Indicati ons:Episodic tension-type headache, not intractable TAKE ONE OR TWO TABLETS BY MOUTH EVERY FOUR HOURS NEEDED, NO MORE THAN 6 TABLETS A DAY 30 Tablet 0 03/20/2023 Active documented as of this encounter (statuses as of 03/31/2023) Active Problems Problem Noted Date Diagnosed Date [...] as of this encounter (statuses as of 03/31/2023) Resolved Problems Problem Noted Date Diagnosed Date [...] as of this encounter (statuses as of 03/31/2023) Immunizations Name Administration Dates Next Due Pneumococcal [...] encounter Miscellaneous Notes * Telephone Encounter - Catherine Torres LPN - 03/31/2023 9:43 AM EDT Care Gaps Comprehensive Care Outreach Last Office/Telemedicine Visit: 10/01/2022 (in office), 07/01/2020 (telemedicine) Next Office Visit: 04/04/2023 Hemoglobin AIC Results: Lab Results Component Value Date/Time HEMOGLOBIN A1C - [facility] 6.5 (H) 10/01/2022 02:50 PM HEMOGLOBIN A1C - [facility] 7.2 (H) 06/02/2022 03:26 PM HEMOGLOBIN A1C - [facility] 7.6 (H) 10/29/2021 02:58 PM HEMOGLOBIN A1C - [facility] 7.2 (H) 01/08/2020 10:47 AM HEMOGLOBIN A1C - [facility] 8.3 (H) 05/29/2019 02:51 PM HEMOGLOBIN A1C - [facility] 7.5 (H) 01/25/2019 02:17 PM Reviewed Health Maintenance below: Health Maintenance Topic Date Due COVID-19 Vaccine (1) Never done Alpha-1 Antitrypsin Never done Zoster Vaccines (1 of 2) Never done Hepatitis B (1 of 3 - Risk 3-dose series) Never done DTaP,Tdap,and Td Vaccines (1 - Tdap) 01/07/2009 CKD HGB USE SMARTSET 87519 04/27/2018 Mammogram 08/26/2019 Depression Screening 01/26/2020 DIABETES-EYE EXAM 06/03/2022 Albumin/Creatinine Ratio 10/29/2022 Influenza Vaccine (FLU shot) (1) 02/04/2023 HbA1c 04/02/2023 Labs Eye mamm Care Gap Outreach Action Taken: Left message documented in this encounter Plan of Treatment Upcoming Encounters Date Type Department Care Team (Late st Contact Info) Description 04/04/2023 1:00 PM EDT Office Visit [facility] [address] [place] [phone] Harman Rodriguez MD [address] [place] [address] 08/04/2023 2:20 PM EST Office Visit Neurology [address] [place] [address] Tiffanie Olsen MD [address] [facility] [place] [address] 09/07/2023 1:00 PM EDT Office Visit Cardiology, [facility] [address] [place] [address] Lynette Christian CRNP [address] [place] [address] Health Maintenance Due Date Last Done Comments COVID-19 Vaccine (#1) 02/23/1936 Alpha-1 Antitrypsin 08/24/1953 Zoster Vaccines (1 of 2) 08/24/1987 Hepatitis B (1 of 3 - Risk 3-dose series) 1997 DTaP,Tdap,and Td Vaccines (1 - Tdap) 01/07/2009 01/06/2009, 01/03/1995, 01/03/1995 CKD HGB USE SMARTSET 60203 04/27/201804/27, 05/22/2012, 05/17/2011, Additional history exists Mammogram 08/26/2019 08/25/2018, 01/04, 01/19/2011 (Done elsewhere), Additional history exists Depression Screening 01/26/2020 01/25/2019 DIABETES-EYE EXAM 06/03/2022 06/03/2021, , 05/10/2018, Additional history exists Albumin/Creatinine Ratio 10/29/2022 022, 10/21/2020, 01/08/2020, Additional history exists Influenza Vaccine (FLU shot) (#1) 2023 03/13/2022, 04/08/2021, 03/08/2019, Additional history exists HbA1c 04/02/2023 10/01/2022, 05/07, 10/29/2021, Additional history exists B-12 10/02/2023 10/01/2022, 04/07, 10/21/2020, Additional history exists CKD PHOS USE SMARTSET 46792 10/02/2023 10/01/2022 Diabetic Foot Exam 10/02/2023 10/01/2022, [...] filedocumented as of this encounter Care Teams Linoleum Layer Apprentice Relationship Specialty Start Date End Date Jose Bowles MD [address] [place] [address] PCP - General Family Medicine 11/04/16 documented as of this encounter
--- OUTSIDE RECORDS SUMMARY | 2023-09-24 21:24 | External Medical Summary | Summary of Care ---
Author Name Unknown Organization [facility] Address [address] [place] [place] [place] [address] Phone [phone] Care Team Providers Care Transportation Engineer Name Role Phone Jose Bowles MD Primary Care Provider +1- [phone] Reason for Visit * Reason Comments Follow Up Something to help wi th mucus in her throat Encounter Details Date Type Department Care Team (Late st Contact Info) Description 04/04/2023 1:00 PM EDT Office Visit [facility] [address] [facility] [place] [address] OctoberHarman MD [address] [place] [address] Type 2 diabetes mellitus with hemoglobin A1c goal of less than 8.0% ([facility]; Nonrheumatic aortic valve stenosis; Episodic tension-type headache, not intractable; HTN, goal below 140/90; Chronic kidney disease, stage 3a ([facility]); VENTURA (generalized anxiety disorder); Major depressive disorder with single episode, in full remission ([facility]) Allergies No known active allergiesdocumented as [...] A1c goal of less than 8.0% ([facility]) use twice a day as [...] A1c goal of less than 8.0% ([facility]) inject contents of 1 syringe (0.5 [...] times daily 405 Tablet 1 03/09/2023 Active Mseddnpvhe-HMWO-H affeine 50-325-40 MG Oral Tablet (Fioricet)Indicat ions:Episodic tension-type headache, not intractable TAKE ONE OR TWO TABLETS BY MOUTH EVERY FOUR HOURS NEEDED, NO MORE THAN 6 TABLETS A DAY 30 Tablet 0 03/20/2023 Active HYDROcodone-Aceta minophen 5-325 MG Oral TabletIndications :Cervicalgia Take 1 Tablet by mouth every 8 hours as needed for Pain, Mild. 90 Tablet 0 03/31/2023 Active alendronate (FOSAMAX) 70 MG TabletIndications :Age-related osteoporosis without current pathological fracture Take 1 Tab by mouth once a week. with 8 oz. water 30 minutes before first meal of the day. Remain upright for 30 min after taking tablet. 12 Tab 3 04/05/2019 04/04/20 Discontinu ed(Patient preference /discontin uation) metFORMIN HCl 500 MG Oral Tablet (Glucophage)Indic ations:Type 2 diabetes mellitus with hemoglobin A1c goal of less than 8.0% (HCC) TAKE 1 TABLET BY MOUTH TWICE DAILY 180 Tablet 1 11/08/2022 10/30/20 23 Discontinu ed(Medicat ion List Clean Up) documented as of this encounter (statuses as [...] Date Smoking Tobacco: Never Smokeless Tobacco: Never Tobacco Cessation:Counseling Given: Not Answered Alcohol Use Standard Drinks/Week Comments No 0 [...] Sign Reading Time Taken Comments Blood Pressure 106/68 04/04/2023 12:49 PM EDT Pulse 82 04/04/2023 12:49 PM EDT Temperature 36.2 C (97.1 F) 04/04/2023 12:49 PM E DT Respiratory Rate 17 04/04/2023 12:49 PM EDT Oxygen Saturation 97% 04/04/2023 12:49 PM EDT Inhaled Oxygen Concentration - - Weight 68.1 kg (150 lb 3.2 oz) 04/04/2023 12:49 PM EDT Height - - Body Mass Index 28.38 06/02/2022 2:30 PM EST documented in this encounter Progress Notes * Harman Rodriguez MD - 04/04/2023 1:12 PM EDT Images from the original note were not included. Assessment and Plan 1. Type 2 diabetes mellitus with hemoglobin A1c goal of less than 8.0% ([facility]) Patient is currently under too tight of control for age and risk of falling. Discontinue metformin 500 mg twice daily. Continue Trulicity 0.75 mg weekly due to ease of dosing. - HEMOGLOBIN A1C; Future - COMPREHENSIVE METABOLIC PANEL; Future - LIPID PANEL WITH DIRECT LDL IF TG IS HIGH; Future 2. Nonrheumatic aortic valve stenosis Multi valvular disease on recent echocardiogram. Evaluated by Cardiology who stated patient is not a surgical candidate. Medical management and follow up with Cardiology. 3. Episodic tension-type headache, not intractable Following with Neurology. Considering injections versus medication therapy based on prior interventions tried at [facility]. 4. HTN, goal below 140/90 Blood pressure at goal. 5. Chronic kidney disease, stage 3a ([facility]) CMP today. - COMPREHENSIVE METABOLIC PANEL; Future 6. VENTURA (generalized anxiety disorder) P.r.n. Ativan. 7. Major depressive disorder with single episode, in full remission (HCC) Stable on Lexapro. Wrap-Up Follow up in 6 months. History of Present Illness The patient is an 87-year-old female with past medical history of type 2 diabetes, dyslipidemia, COPD, hypertension, CKD 3A, anxiety and depression who presents for six-month follow up. Patient reports she is done well since last visit. She is been seen by Cardiology for multi valvular disease seen on echocardiogram. Recommendation was for medical management as patient is too high risk for surgical intervention. She was also seen by neurology for chronic tension-type headaches. These are daily. She was previously seen in an outside pain management clinic. They would like to consider injections based on injections tried at this outside facility. Her diabetes is under excellentcontrol. A1c is 6.5. Her goal A1c would be 8 especially given history of falls. We can deep prescribe metformin and continue Trulicity which has allowed for significant improved compliance with once weekly dosing. Blood pressure at goal today. Physical Exam Vitals: 04/04/23 1249 Temp: 36.2 C (97.1 F) Pulse: 82 Resp: 17 SpO2: 97% BP: 106/68 Physical Exam Physical Exam Vitals reviewed. Constitutional: General: She is not in acute distress. Comments: Somewhat frail. Using cane for ambulation. Forgetful. Cardiovascular: Rate and Rhythm: Normal rate and regular rhythm. Heart sounds: Murmur heard. Pulmonary: Effort: Pulmonary effort is normal. No respiratory distress. Breath sounds: Normal breath sounds. No wheezing. Musculoskeletal: Cervical back: Neck supple. Lymphadenopathy: Cervical: No cervical adenopathy. Skin: General: Skin is warm and dry. Neurological: General: No focal deficit present. Mental Status: She is alert. documented in this encounter Plan of Treatment Upcoming Encounters Date Type Department Care Team (Late st Contact Info) Description 08/04/2023 2:20 PM EST Office Visit [facility] [address] [place] [address] Tiffanie Olsen MD [address] [place] [address] 09/07/2023 1:00 PM EDT Office Visit Cardiology, [facility] [address] [place] [address] Lynette Christian CRNP [address] [place] [address] 10/04/2023 1:00 PM EDT Office Visit [facility] [address] [place] [phone] MayHarman MD [address] [place] [address] Pending Results Name Type Priority Associated Diagnoses Date /Time HEMOGLOBIN A1C Lab Routine Type 2 diabetes mellitus with hemoglobin A1c goal of less than 8.0% (HCC) 04/04/2023 1:52 PM EDT COMPREHENSIVE METABOLIC PANEL Lab Routine Type 2 diabetes mellitus with hemoglobin A1c goal of less than 8.0% (HCC) Chronic kidney disease, stage 3a (HCC) 04/04/2023 1:52 PM EDT LIPID PANEL WITH DIRECT LDL IF TG IS HIGH Lab Routine Type 2 diabetes mellitus with hemoglobin A1c goal of less than 8.0% (HCC) 04/04/2023 1:52 PM EDT Scheduled Orders Name Type Priority Associated Diagnoses Orde r Schedule HEMOGLOBIN A1C Lab Routine Type 2 diabetes mellitus with hemoglobin A1c goal of less than 8.0% (HCC) Expected: 04/04/2023 (Approximate), Expires: 04/03/2024 COMPREHENSIVE METABOLIC PANEL Lab Routine Type 2 diabetes mellitus with hemoglobin A1c goal of less than 8.0% (HCC) Chronic kidney disease, stage 3a (HCC) Expected: 04/04/2023 (Approximate), Expires: 04/03/2024 LIPID PANEL WITH DIRECT LDL IF TG IS HIGH Lab Routine Type 2 diabetes mellitus with hemoglobin A1c goal of less than 8.0% (HCC) Expected: 04/04/2023, Expires: 04/04/2024 Health Maintenance Due Date Last Done Comments COVID-19 Vaccine (#1) 02/23/1936 Alpha-1 Antitrypsin 08/24/1953 Zoster Vaccines (1 of 2) 08/24/1987 Hepatitis B (1 of 3 - Risk 3-dose series) 1997 DTaP,Tdap,and Td Vaccines (1 - Tdap) 01/07/2009 01/06/2009, 01/03/1995, 01/03/1995 CKD HGB USE SMARTSET 23752 04/27/201804/27, 05/22/2012, 05/17/2011, Additional history exists Mammogram [...] Additional history exists CKD PHOS USE SMARTSET 93754 10/02/2023 10/01/2022 Diabetic Foot Exam 10/02/2023 10/01/2022, [...] hemoglobin A1c goal of less than 8.0% (HCC)- Primary Nonrheumatic aortic valve stenosis Aortic valve disorders Episodic tension-type headache, not intractable Episodic tension type headache HTN, goal below 140/90 Unspecified essential hypertension Chronic kidney disease, stage 3a (HCC) VENTURA (generalized anxiety disorder) Generalized anxiety disorder Major depressive disorder with single episode, in full remission (HCC) documented in this encounter Care Teams Transportation Engineer Relationship Specialty Start Date End Date Jose Bowles MD [address] [place] [facility] [place] [address] PCP - General Family Medicine 11/04/16 documented as of this encounter
--- OUTSIDE RECORDS SUMMARY | 2023-09-24 21:24 | External Medical Summary ---
Author Name Unknown Address Unknown Organization [id number]:LABORATORY [facility] - [address] [place] [address] Laboratory Report Ordering Provider Test Date Status 04/04/2023 13:52:15 Final Observation Date Value Abnormality Reference (Units ) Status BUN 04/04/2023 13:52:15 10 6-20 (mg/dL) Final Creatinine 04/04/2023 13:52:15 0.8 0.5-1.0 (mg/dL) Final Glomerular filtration rate/1.73 sq M.predicted [Volume Rate/Area] in Serum, Plasma or Blood by Creatinine-based formula (CKD-EPI) 04/04/2023 13:52:15 77 >=60 (mL/min) Final eGFR is calculated based on the CKD-EPI 2020 equation SODIUM 04/04/2023 13:52:15 138 135-146 (m mol/L) Final Potassium 04/04/2023 13:52:15 4.4 3.5-5.1 (m mol/L) Final Cl 04/04/2023 13:52:15 98 98-107 (mm ol/L) Final CO2 04/04/2023 13:52:15 27 22-32 (mmo l/L) Final Anion gap 04/04/2023 13:52:15 13 7-15 (mmol /L) Final Glucose 04/04/2023 13:52:15 124 Above high normal 70 -120 (mg/dL) Final Albumin 04/04/2023 13:52:15 4.1 3.8-5.0 (g /dL) Final AST (Aspartate aminotransferase) 04/04/2023 13:52:15 12 10-35 (U/L) Fin al Alk Phos 04/04/2023 13:52:15 54 35-130 (U/ L) Final Bilirubin, Total 04/04/2023 13:52:15 0.2 <=1 .2 (mg/dL) Final Calcium 04/04/2023 13:52:15 8.9 8.4-10.2 ( mg/dL) Final Protein 04/04/2023 13:52:15 6.6 6.0-8.3 (g /dL) Final ALT (Alanine aminotransferase) 04/04/2023 13:52:15 6 Below low normal 10-35 (U/L) Final Performing Location [facility] - [address] [facility] [address]
--- OUTSIDE RECORDS SUMMARY | 2023-09-24 21:24 | External Medical Summary ---
Author Name Unknown Address Unknown Organization [id number]:LABORATORY [facility] - [address] [facility] [address] Laboratory Report Ordering Provider Test Date Status 04/04/2023 13:52:15 Final Observation Date Value Abnormality Reference (Units ) Status HbA1C 04/04/2023 13:52:15 6.1 Above high normal 4. 0-5.6 (%) Final The use of HbA1c to monitor glycemic status is based on normal hemoglobin and HbA composition. This test should not be used in patients with abnormal hemoglobin that affects the half life of the red blood cell or the in vivo glycation rates. Glucose, estimated average 04/04/2023 13:52:15 128 Above high normal <126 (mg/dL) [facility] Location LABORATORY [facility] - [address] [facility] [address]
--- OUTSIDE RECORDS SUMMARY | 2023-09-24 21:24 | External Medical Summary | Summary of Care ---
Author Name Unknown Organization [facility] Address [address] [place] [place] [address] Phone [phone] Care Team Providers Care Assistant Signal Maintainer Name Role Phone Jose Fitzpatrick MD Primary Care Provider [phone] Reason for Visit * Reason Onset Date Comments Medication Refill 03/30/2023 Encounter Details Date Type Department Care Team (Late st Contact Info) Description 03/30/2023 Refill [facility] [address] [place] [facility] [place] [address] Jose Fitzpatrick MD [address] [place] [address] Cervicalgia Allergies No known active [...] 5 04/16/2008 Active alendronate (FOSAMAX) 70 MG TabletIndications :Age-related [...] Active metFORMIN HCl 500 MG Oral Tablet (Glucophage)Indic ations:Type 2 diabetes mellitus with hemoglobin A1c goal of less than 8.0% (HCC) TAKE 1 TABLET BY MOUTH TWICE DAILY 180 Tablet 1 11/08/2022 Active Trulicity 0.75 MG/0.5ML Subcutaneous Solution Pen-injector (Dulaglutide)Isela cations:Type 2 diabetes mellitus with hemoglobin A1c goal of less than 8.0% ([facility]) inject contents of 1 syringe (0.5 ml) [...] times daily 405 Tablet 1 03/09/2023 Active Ikftobjskv-HVQM-W affeine 50-325-40 MG Oral Tablet (Fioricet)Indicat ions:Episodic tension-type headache, not intractable TAKE ONE OR TWO TABLETS BY MOUTH EVERY FOUR HOURS NEEDED, NO MORE THAN 6 TABLETS A DAY 30 Tablet 0 03/20/2023 Active HYDROcodone-Aceta minophen 5-325 MG Oral TabletIndications :Cervicalgia Take 1 Tablet by mouth every 8 hours as needed for Pain, Mild. 90 Tablet 0 03/31/2023 Active HYDROcodone-Aceta minophen 5-325 MG Oral TabletIndications :Cervicalgia Take 1 Tablet by mouth every 8 hours as needed for Pain, Mild. 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 * Telephone Encounter - Zahra Paris RPh - 03/31/2023 10:05 AM EDT I have reviewed the patients controlled substance dispensing history in the Prescription Drug Monitoring Program in compliance with the [place] regulations before prescribing a controlled substance. PDMP checked on 03/31/2023. Pending Prescriptions: Disp Refills HYDROcodone-Acetaminophen 5-325 MG Oral T*90 Tab*0 Sig: Take 1 Tablet by mouth every 8 hours as needed for Pain, Mild. Last Visit: 10/01/2022 (in office), 07/01/2020 (telemedicine) Next Visit: 04/04/2023 Date medication was last filled: 02/04/23 Date medication is due for refill: 03/05/23 Pharmacy: [id number] [place] Is this request for a controlled substance? Yes and Urine Drug Screen Not completed Toxicology results: No results found. However, due to the size of the patient record, not all encounters were searched.Please check Results Review for a complete set of results. Please approve if appropriate. Thanks, Zahra Paris PharmD Clinical Pharmacist [facility] ([facility]) (formerly Telepharmacy). [phone] 03/31/2023, 10:05 AM documented in this encounter Plan of Treatment Upcoming Encounters Date Type Department Care Team (Late st Contact Info) Description 04/04/2023 1:00 PM EDT Office Visit [facility] [address] [place] [id number] Harman Rodriguez MD [address] [place] [address] 08/04/2023 2:20 PM EST Office Visit Neurology [facility] [address] [place] [address] Tiffanie Olsen MD [address] [facility] [place] [address] 09/07/2023 1:00 PM EDT Office Visit Cardiology, [facility] [address] [address] Lynette Christian CRNP [address] [address] Health Maintenance Due Date Last Done Comments COVID-19 Vaccine (#1) 02/23/1936 Alpha-1 Antitrypsin 08/24/1955 Zoster Vaccines (1 of 2) 08/24/1987 Hepatitis B (1 of 3 - Risk 3-dose series) 1997 DTaP,Tdap,and Td Vaccines (1 - Tdap) 01/07/2009 01/06/2009, 01/03/1995, 01/03/1995 CKD HGB USE SMARTSET 69302 04/27/201804/27, 05/22/2012, 05/17/2011, Additional history exists Mammogram [...] Additional history exists CKD PHOS USE SMARTSET 42551 10/02/2023 10/01/2022 Diabetic Foot Exam 10/02/2023 10/01/2022, [...] Cervicalgia documented in this encounter Care Teams Assistant Signal Maintainer Relationship Specialty Start Date End Date Jose Fitzpatrick MD [address] [place] [address] PCP - General Family Medicine 11/04/16 documented as of this encounter
--- OUTSIDE RECORDS SUMMARY | 2023-09-24 21:24 | External Medical Summary ---
Author Name Unknown Address Unknown Organization K01:LAB[facility]ATORY [facility] - [address] [place] [address] Laboratory Report Ordering Provider Test Date Status 04/04/2023 13:52:15 Final Observation Date Value Abnormality Reference (Units ) Status Triglyceride 04/04/2023 13:52:15 310 Above high normal <=174 (mg/dL) Final Triglyceride Reference Range s (mg/dL):
<150 Acceptable
150-174 Borderline high
175-499 High
>=500 Very high Cholesterol 04/04/2023 13:52:15 138 <200 (mg /dL) Final Total Cholesterol Reference Ranges (mg/dL):
<200 Desirable
200-239 Borderline high
>=240 High HDL 04/04/2023 13:52:15 35 Below low normal >49 (mg/dL) Final HDL Cholesterol Reference Ra nges (mg/dL):
>=60 High (Desirable)
<50 Low (Undesirable) For Females
<40 Low (Undesirable) For Males NON-HDL CHOLESTEROL 04/04/2023 13:52:15 103 <=159 (mg/dL) Final Non-HDL Cholesterol Referenc e Range (mg/dL):
<100 Target level for high risk ASCVD patient
<130 Optimal for general population
130-159 Near optimal for general population
160-189 Borderline High
190-219 High
>=220 Very High Performing Location [facility] - [address] [place] [address]
--- OUTSIDE RECORDS SUMMARY | 2023-09-24 21:24 | External Medical Summary ---
Author Name Unknown Address Unknown Organization K01:[facility] [place] [place] - [address] [place] [address] Laboratory Report Ordering Provider Test Date Status 04/04/2023 13:52:15 Final Observation Date Value Abnormality Reference (Units ) Status LDL, (direct) 04/04/2023 13:52:15 54 <=129 (mg/dL) Final LDL Cholesterol Reference Ra nges (mg/dL):
<70 Target level for high risk ASCVD patient
<100 Optimal for general population
100-129 Near optimal for general population
130-159 Borderline high
160-189 High
>=190 Very high Performing Location LABORATORY [facility] - [address] [place] [address]
[2023-09-24 22:01] LABS: Base Excess VBG 0.8 mEq/L; Basophils # (auto) 0.08 K/uL (0.00-0.20); Basophils % (auto) 0.7 %; Eosinophils # (auto) 0.44 K/uL (0.00-0.50); Eosinophils % (auto) 3.8 %; HCO3 VBG 31 mmol/L; Hematocrit (blood only) 37.2 % (37.0-47.0); Hemoglobin 12.4 g/dl (12.0-16.0); Immature Granulocytes # (auto) 0.09 K/uL (0.01-0.20); Immature Granulocytes % (auto) 0.8 %; Lymphocytes # (auto) 1.89 K/uL (1.20-3.40); Lymphocytes % (auto) 16.3 %; Mean Corpuscular Hemoglobin 30.1 pg (25.0-34.0); Mean Corpuscular Hgb Conc 33.3 g/dL (32.0-36.0); Mean Corpuscular Volume 90.3 fL (80.0-100.0); Monocytes # (auto) 0.79 K/uL (0.11-0.59); Monocytes % (auto) 6.8 %; Neutrophils # (auto) 8.33 K/uL (1.40-6.50); Neutrophils % (auto) 71.6 %; Oxygen Saturation VBG 61.1 %; PCO2 VBG 75 mmHg (38-50); PO2 VBG 35 mmHg; Platelet Count 243 K/uL (130-400); RDW Standard Deviation 42.8 fL (36.4-46.3); Red Blood Count 4.12 M/uL (4.20-5.40); White Blood Count 11.62 K/ul (4.8-10.8); pH VBG 7.22 (7.36-7.41)
--- NOTE | 2023-09-24 22:05 | XRay Report ---
SINGLE VIEW CHEST CLINICAL HISTORY: Dyspnea FINDINGS: An AP, portable, upright chest radiograph is compared to study dated 08/10/2017. Surgical cli ps are seen in the right lower neck. The heart is enlarged noting atherosclerotic calcification of th e thoracic aorta. The pulmonary vasculature is noncongested. Chronic interstitial thickening is simil ar to previous. There is mild bibasilar scarring/atelectasis. No airspace consolidation or large pleu ral effusion is identified. No pneumothorax is seen. The skeletal structures are osteopenic. The bony thorax is grossly intact. IMPRESSION: Cardiomegaly with no active disease in the chest. ACT 112: Negative or not required by law. Electronically signed by: Didier Mcgarry M.D. 09/24/2023 10:03 PM
[2023-09-24] MEDS: ALBUT/IPRATROP 3MG/0.5MG NEB 3 ML VIAL NEB ONE (22:11)
[2023-09-24] MEDS: methylPREDNISolone 125 MG/2 ML VIAL IV STA (22:13)
[2023-09-24 22:14] LABS: Partial Thromboplastin Time 28 Seconds (21-31); Prothrombin Time 10.8 Seconds (9.0-12.0)
[2023-09-24 22:21] LABS: Albumin Level 4.3 gm/dl (3.4-5.0); Anion Gap 8 (3-11); Bilirubin,Total 0.5 mg/dl (0.2-1.0); Calcium 9.3 mg/dl (8.6-10.3); Carbon Dioxide 29 mmol/L (21-32); Chloride 98 mmol/L (98-107); Magnesium 1.8 mg/dl (1.7-2.4); Potassium 4.7 mmol/L (3.5-5.1); Sodium 135 mmol/L (136-145)
[2023-09-24 22:26] LABS: Troponin I High Sensitivity 6.5 pg/ml (0-14)
[2023-09-24 22:27] LABS: Alanine Aminotransferase 4 U/L (7-52); Albumin Globulin Ratio 1.3 (0.9-2); Alkaline Phosphatase 51 U/L (34-104); Aspartate Aminotransferase 9 U/L (13-39); BUN Creatinine Ratio 29.4 (10-20); Blood Urea Nitrogen 32 mg/dl (6-23); Est GFR (African American) 53.2 ml/min; Est GFR (Non-African American) 45.9 ml/min; Globulin 3.2 gm/dl (2.5-4.0); Glucose 158 mg/dl (70-99(Fasting)); Total Protein 7.5 gm/dl (6.0-8.3)
--- NOTE | 2023-09-24 22:29 | Emergency Department Note ---
Impression & Plan Acute hypercapnic respiratory failure, Breathlessness, Cough, Confusion ED Provider Note Provider: Drake Khan MD DATE OF SERVICE: 09/24/2023 CHIEF COMPLAINT:Confused, worsening breathing HISTORY OF PRESENT ILLNESS: Patient is a 88-year-old female history of structural lung disease, hypertension, diabetes, and UTI presenting here today with family. Lives with her son but presents with patient's daughter. Reportedly came this evening because family noted that her breathing became worse and was having some trouble with her breathing today. Was having difficulty awaking her from a nap this afternoon and seem to be confused. Does seem very confused and not speaking as well as normally to them. No falls reported. Patient herself denies any significant pain. Does report cough the last several days. Mildly productive. Denies any significant swelling or chest pain. No abdominal pain or nausea or vomiting reported. No sick contacts to their knowledge reported. Does wear 2 L of oxygen regularly. PAST MEDICAL HISTORY: As noted above MEDICATIONS: Reviewed home medications SOCIAL HISTORY: Non-smoker at this time PHYSICAL EXAM: GENERAL: alert and oriented in no acute distress on stretcher nasal cannula oxygen in place, not the best historian today's events Head: normocephalic and atraumatic EYES: No injection, discharge or icterus. EOMI. NECK: Trachea midline. ENT: Mucous membranes pink and moist. LUNGS: Airway patent. No retractions mild tachypnea. Intermittently coughing, breath sounds some faint expiratory wheeze HEART: Regular rate and rhythm. No chest wall tenderness ABDOMEN: Soft and non-tender, without guarding or rebound. SKIN: Acyanotic, warm, dry, without rashes EXTREMITIES: Without swelling, tenderness or deformity NEUROLOGICAL: No focal deficits moving all extremities to command. No aphasia. No slurred speech. Slight right facial droop. Tongue midline. Seems a little bit shaky. EK bpm normal sinus rhythm. Bit of artifact but no acute ST segment elevation or depression. No PVC. QTc 441. Normal axis. CONTINUOUS CARDIAC MONITORING: was ordered and showed a heart rate of 90s to 100 bpm in normal sinus rhythm to sinus tachycardia Patient's laboratory studies and imaging reviewed. Differential includes Reactive airway disease, pneumonia, pneumothorax, COPD, CHF, infections, cardiac ischemia, pulmonary embolism, musculoskeletal, gastrointestinal, CVA, neurological etiologies, meningitis, as well as other pathologies. IMPRESSION/MEDICAL DECISION MAKING: Given the confusion we will complete a head CT. No significant trauma reported or evidence of trauma or person. On her baseline nasal cannula oxygen from home 2 L. Does have some cough and mild tachypnea. Maybe little bit of facial droop and not really a focal exam and I doubt least an acute CVA at this time. No significant swelling I doubt CHF. Denies significant chest pain EKG and troponin were completed. Troponin reassuring. Procalcitonin not significantly elevated. BNP minimally elevated but chest x-ray per radiology report without evidence of significant fluid overload or evidence of pneumonia. VBG however does show acidosis with a pH of 7.22 and a CO2 of 70 for life. Mild leukocytosis 1.6 likely more reactive. Will give a dose of doxycycline and transition to BiPAP given the acidosis. Did receive a nebulizer as well as a dose of IV steroids here. Blood culture sent low suspicion for acute sepsis or pneumonia at this time. Respiratory viral panel completed as well. Discussed with family findings and need for hospitalization. Hospitalist contacted. Patient mentation is improving some while here. Repeat ABG ordered by the hospitalist does show improving pH and CO2 levels. Patient has been oxygenating satisfactory. DIAGNOSIS: Shortness of breath, hypercarbic respiratory failure, confusion DISPOSITION: Hospitalist will evaluate Patient was agreeable with this plan as is family Critical Care I have personally spent 42 minutes of critical care time in the direct management of this patient. This includes bedside care, interpretation of diagnostic studies, and testing, discussion with consultants, patient, and family members, and other required patient management activities. These 42 minutes is in excess of all separately billable procedures. Past Med/Surg History Medical History (Updated 09/24/23 @ 22:41 by Drake Khan M.D.) Cervicogenic headache Heart murmur Bereavement History of COPD Nocturnal hypoxia Myofascial pain Lumbago Cervicalgia Cervical facet syndrome UTI (urinary tract infection) (04/22/13) Sepsis Hypomagnesemia Hyperglycemia Diabetes Confusion associated with infection COPD exacerbation Altered mental status (04/22/13) Chronic reflux esophagitis Diabetes mellitus type 1 COPD (chronic obstructive pulmonary disease) Vertebral artery occlusion Migraine headache Carotid artery stenosis HTN (hypertension) Surgical History (Updated 11/08/22 @ 14:56 by Sherry Clark RN) Hx of cataract surgery H/O: hysterectomy Family History (Updated 11/08/22 @ 14:57 by Sherry Clark RN) Mother Hypertension Asthma Social History Smoking Status: Never smoker Hx Alcohol Use: No Hx Substance Use: No Preferred Language: Citizen Of [place] Communication Ability: Effective Visual Impairment: Limited Hearing Ability: Hard of Hearing marital status: Current Living Situation: Family current occupational status: retired Feels Safe at Home: Yes Allergies Allergies Allergy/AdvReac Type Severity Reaction Status Date / Time No Known Allergies Allergy Verified 09/25/23 00:18 Home Meds Home Medications Medication Instructions Recorded Confirmed aspirin 81 mg tablet,delayed 81 mg PO DAILY 11/17/18 09/24/23 release (Adult Aspirin Regimen) atorvastatin 10 mg tablet 10 mg PO QPM 11/17/18 09/24/23 carvedilol 25 mg tablet (Coreg) 25 mg PO BID 11/17/18 09/24/23 hydroxyzine HCl 10 mg tablet 10 mg PO TID PRN Itching 11/17/18 09/25/23 lisinopril 5 mg tablet 5 mg PO BID 11/17/18 09/24/23 lorazepam 0.5 mg tablet 0.5 mg buccal QID PRN Anxiety 03/08/19 09/24/23 hydralazine 10 mg tablet 15 mg PO TID 03/13/20 09/24/23 albuterol sulfate 90 mcg/actuation 2 puff inhalation Q6H PRN 09/24/23 09/25/23 aerosol inhaler Shortness Of Breath Or Wheezing budesonide-formoterol HFA 160 2 puff inhalation BID 09/24/23 09/25/23 mcg-4.5 mcg/actuation aerosol inhaler (Symbicort) [id number] 1 tab PO DIRECTED PRN Migraine 09/24/23 09/25/23 50 mg-325 mg-40 mg tablet Headache dulaglutide 0.75 mg/0.5 mL 0.75 mg subcut .Q FRI 09/24/23 09/25/23 subcutaneous pen injector (Trulicity) escitalopram oxalate 20 mg tablet 20 mg PO QAM 09/24/23 09/25/23 ezetimibe 10 mg tablet 10 mg PO DAILY 09/24/23 09/25/23 gabapentin 100 mg capsule 200 mg PO BID 09/24/23 09/24/23 hydrocodone 5 mg-acetaminophen 325 1 tab PO Q8 PRN Pain 09/24/23 09/24/23 mg tablet ipratropium 0.5 mg-albuterol 3 mg 3 ml inhalation QID PRN Shortness 09/24/23 09/25/23 (2.5 mg base)/3 mL nebulization Of Breath Or Wheezing soln ipratropium 20 mcg-albuterol 100 1 puff inhalation QID PRN 09/24/23 09/25/23 mcg/actuation mist for inhalation Shortness Of Breath Or Wheezing (Combivent Respimat) nitroglycerin 0.4 mg sublingual 0.4 mg sublingual DIRECTED PRN 09/24/23 09/25/23 tablet (Nitrostat) Chest Pain triamcinolone acetonide 0.1 % 1 applic topical BID PRN .Neck & 09/24/23 09/25/23 topical cream chest omeprazole magnesium 20 mg 20 mg PO DAILY 09/25/23 09/25/23 tablet,delayed release (Prilosec OTC) Results & Data (ED) Vital Signs Vital Signs - 24 hr 09/24/23 21:20 09/24/23 21:24 09/24/23 21:37 Temperature 37.3 C Temperature Source Oral Pulse Rate 94 H 100 H Pulse Rate [Apical] Pulse Rate from SpO2 Sensor 99 H Pulse Rhythm Regular Pulse Strength Normal Respiratory Rate 22 19 Respiratory Effort / Characteristics Non-Labored Spontaneous Respiratory Depth Normal Respiratory Pattern Regular Blood Pressure 193/84 H Blood Pressure [Left Arm] Blood Pressure Mean 120 Blood Pressure Mean [Left Arm] Blood Pressure Position Sitting Pulse Oximetry 88 L 98 100 Oxygen Delivery Method Room Air Nasal Cannula Oxygen Flow Rate 2 Fraction of Inspired Oxygen SaO2/FiO2 Ratio Sepsis Recent Fever Within 48 Hours No Sepsis New/Unexplained Change in Mental Status N/A Sepsis Action Taken by Nursing No Action Required 09/24/23 21:44 09/24/23 21:44 09/24/23 21:44 Temperature Temperature Source Pulse Rate 98 H Pulse Rate [Apical] Pulse Rate from SpO2 Sensor 97 H Pulse Rhythm Pulse Strength Respiratory Rate 20 Respiratory Effort / Characteristics Respiratory Depth Respiratory Pattern Blood Pressure 171/133 H Blood Pressure [Left Arm] Blood Pressure Mean 146 Blood Pressure Mean [Left Arm] Blood Pressure Position Pulse Oximetry 99 100 Oxygen Delivery Method Nasal Cannula Oxygen Flow Rate 2 Fraction of Inspired Oxygen SaO2/FiO2 Ratio Sepsis Recent Fever Within 48 Hours Sepsis New/Unexplained Change in Mental Status Sepsis Action Taken by Nursing 09/24/23 21:45 09/24/23 21:45 09/24/23 21:45 Temperature Temperature Source Pulse Rate 97 H Pulse Rate [Apical] Pulse Rate from SpO2 Sensor 98 H Pulse Rhythm Pulse Strength Respiratory Rate 18 Respiratory Effort / Characteristics Respiratory Depth Respiratory Pattern Blood Pressure 193/126 H Blood Pressure [Left Arm] Blood Pressure Mean 159 Blood Pressure Mean [Left Arm] Blood Pressure Position Pulse Oximetry 99 100 Oxygen Delivery Method Nasal Cannula Oxygen Flow Rate 2 Fraction of Inspired Oxygen SaO2/FiO2 Ratio Sepsis Recent Fever Within 48 Hours Sepsis New/Unexplained Change in Mental Status Sepsis Action Taken by Nursing 09/24/23 21:53 09/24/23 21:53 09/24/23 22:00 Temperature Temperature Source Pulse Rate 103 H 100 H Pulse Rate [Apical] Pulse Rate from SpO2 Sensor 103 H 100 H Pulse Rhythm Pulse Strength Respiratory Rate 22 19 Respiratory Effort / Characteristics Respiratory Depth Respiratory Pattern Blood Pressure 147/114 H Blood Pressure [Left Arm] Blood Pressure Mean 118 Blood Pressure Mean [Left Arm] Blood Pressure Position Pulse Oximetry 100 100 Oxygen Delivery Method Oxygen Flow Rate Fraction of Inspired Oxygen SaO2/FiO2 Ratio Sepsis Recent Fever Within 48 Hours Sepsis New/Unexplained Change in Mental Status Sepsis Action Taken by Nursing 09/24/23 22:01 09/24/23 22:01 09/24/23 22:15 Temperature Temperature Source Pulse Rate 101 H 98 H Pulse Rate [Apical] Pulse Rate from SpO2 Sensor 101 H 99 H Pulse Rhythm Pulse Strength Respiratory Rate 22 18 Respiratory Effort / Characteristics Respiratory Depth Respiratory Pattern Blood Pressure 196/116 H Blood Pressure [Left Arm] Blood Pressure Mean 124 Blood Pressure Mean [Left Arm] Blood Pressure Position Pulse Oximetry 100 100 Oxygen Delivery Method Oxygen Flow Rate Fraction of Inspired Oxygen SaO2/FiO2 Ratio Sepsis Recent Fever Within 48 Hours Sepsis New/Unexplained Change in Mental Status Sepsis Action Taken by Nursing 09/24/23 22:15 09/24/23 22:30 09/24/23 22:31 Temperature Temperature Source Pulse Rate 92 H 95 H Pulse Rate [Apical] Pulse Rate from SpO2 Sensor 92 H 94 H Pulse Rhythm Pulse Strength Respiratory Rate 14 17 Respiratory Effort / Characteristics Respiratory Depth Respiratory Pattern Blood Pressure 172/104 H Blood Pressure [Left Arm] Blood Pressure Mean 119 Blood Pressure Mean [Left Arm] Blood Pressure Position Pulse Oximetry 100 100 Oxygen Delivery Method Nebulizer Oxygen Flow Rate Fraction of Inspired Oxygen SaO2/FiO2 Ratio Sepsis Recent Fever Within 48 Hours Sepsis New/Unexplained Change in Mental Status Sepsis Action Taken by Nursing 09/24/23 22:52 09/24/23 23:00 09/24/23 23:27 Temperature Temperature Source Pulse Rate 88 92 H Pulse Rate [Apical] Pulse Rate from SpO2 Sensor 89 Pulse Rhythm Pulse Strength Respiratory Rate 15 24 Respiratory Effort / Characteristics Non-Labored Spontaneous Respiratory Depth Normal Respiratory Pattern Regular Blood Pressure 191/92 H Blood Pressure [Left Arm] Blood Pressure Mean 125 Blood Pressure Mean [Left Arm] Blood Pressure Position Pulse Oximetry 100 100 100 Oxygen Delivery Method Oxygen Flow Rate Fraction of Inspired Oxygen 30 SaO2/FiO2 Ratio Sepsis Recent Fever Within 48 Hours Sepsis New/Unexplained Change in Mental Status Sepsis Action Taken by Nursing 09/24/23 23:30 09/24/23 23:46 09/25/23 00:01 Temperature Temperature Source Pulse Rate 91 H 94 H 94 H Pulse Rate [Apical] Pulse Rate from SpO2 Sensor Pulse Rhythm Pulse Strength Respiratory Rate 16 15 14 Respiratory Effort / Characteristics Respiratory Depth Respiratory Pattern Blood Pressure 149/106 H 144/109 H 160/95 H Blood Pressure [Left Arm] Blood Pressure Mean 120 120 116 Blood Pressure Mean [Left Arm] Blood Pressure Position Pulse Oximetry 100 100 99 Oxygen Delivery Method Oxygen Flow Rate Fraction of Inspired Oxygen SaO2/FiO2 Ratio Sepsis Recent Fever Within 48 Hours Sepsis New/Unexplained Change in Mental Status Sepsis Action Taken by Nursing 09/25/23 00:02 09/25/23 00:07 09/25/23 00:09 Temperature Temperature Source Pulse Rate 92 H 94 H Pulse Rate [Apical] 89 Pulse Rate from SpO2 Sensor Pulse Rhythm Pulse Strength Respiratory Rate 19 Respiratory Effort / Characteristics Non-Labored Respiratory Depth Normal Respiratory Pattern Blood Pressure 160/95 H Blood Pressure [Left Arm] 160/95 H Blood Pressure Mean Blood Pressure Mean [Left Arm] 116 Blood Pressure Position Pulse Oximetry 100 Oxygen Delivery Method BiPAP Oxygen Flow Rate Fraction of Inspired Oxygen 30 SaO2/FiO2 Ratio 333 Sepsis Recent Fever Within 48 Hours Sepsis New/Unexplained Change in Mental Status Sepsis Action Taken by Nursing 09/25/23 00:14 09/25/23 00:15 09/25/23 00:30 Temperature Temperature Source Pulse Rate 90 88 91 H Pulse Rate [Apical] Pulse Rate from SpO2 Sensor Pulse Rhythm Pulse Strength Respiratory Rate 23 17 20 Respiratory Effort / Characteristics Non-Labored Spontaneous Respiratory Depth Normal Respiratory Pattern Regular Blood Pressure 165/104 H 177/103 H Blood Pressure [Left Arm] Blood Pressure Mean 124 127 Blood Pressure Mean [Left Arm] Blood Pressure Position Pulse Oximetry 99 99 99 Oxygen Delivery Method Oxygen Flow Rate Fraction of Inspired Oxygen 30 SaO2/FiO2 Ratio Sepsis Recent Fever Within 48 Hours Sepsis New/Unexplained Change in Mental Status Sepsis Action Taken by Nursing Laboratory Data 09/24/23 21:39 09/24/23 21:39 Lab Results 09/24/23 09/24/23 09/24/23 Range/Units 21:39 21:50 22:50 WBC 11.62 H (4.8-10.8) K/ul RBC 4.12 L (4.20-5.40) M/uL Hgb 12.4 (12.0-16.0) g/dl Hct 37.2 (37.0-47.0) % MCV 90.3 (80.0-100.0) fL MCH 30.1 (25.0-34.0) pg MCHC 33.3 (32.0-36.0) g/dL RDW Std Deviation 42.8 (36.4-46.3) fL RDW Coeff of Nuzhat 13.0 (11.5-14.5) % Plt Count 243 (130-400) K/uL MPV 9.0 L (9.4-12.4) fL Immature Gran % (Auto) 0.8 % Neut % (Auto) 71.6 % Lymph % (Auto) 16.3 % [place] % (Auto) 6.8 % Eos % (Auto) 3.8 % Baso % (Auto) 0.7 % Neut # (Auto) 8.33 H (1.40-6.50) K/uL Lymph # (Auto) 1.89 (1.20-3.40) K/uL [place] # (Auto) 0.79 H (0.11-0.59) K/uL Eos # (Auto) 0.44 (0.00-0.50) K/uL Baso # (Auto) 0.08 (0.00-0.20) K/uL Immature Gran # (Auto) 0.09 (0.01-0.20) K/uL PT 10.8 (9.0-12.0) Seconds INR 1.0 (0.9-1.1) APTT 28 (21-31) Seconds PTT Ratio 1.0 ABG pH (7.35-7.45) ABG pCO2 (35-46) mmHg ABG pO2 (80-95) mmHg ABG HCO3 (19-24) mmol/L ABG O2 Saturation (90-95) % ABG Base Excess (-9-1.8) mEq/L Saleem Test (Pos) VBG pH 7.22 L (7.36-7.41) VBG pCO2 75 H (38-50) mmHg VBG pO2 35 mmHg VBG HCO3 31 mmol/L VBG O2 Saturation 61.1 % VBG Base Excess 0.8 mEq/L Oxygen Given Sodium 135 L (136-145) mmol/L Potassium 4.7 (3.5-5.1) mmol/L Chloride 98 (98-107) mmol/L Carbon Dioxide 29 (21-32) mmol/L Anion Gap 8 (3-11) BUN 32 H (6-23) mg/dl Creatinine 1.09 (0.6-1.2) mg/dl Est Cr Clr Drug Dosing Not Reportable Est GFR ( Amer) 53.2 ml/min Est GFR (Non-Af Amer) 45.9 ml/min BUN/Creatinine Ratio 29.4 H (10-20) Glucose 158 H (70-99(Fasting)) mg/dl Lactate 0.6 (0.4-2.0) mmol/L Calcium 9.3 (8.6-10.3) mg/dl Magnesium 1.8 (1.7-2.4) mg/dl Total Bilirubin 0.5 (0.2-1.0) mg/dl AST 9 L (13-39) U/L ALT 4 L (7-52) U/L Alkaline Phosphatase 51 (34-104) U/L Troponin I High Sens 6.5 (0-14) pg/ml B-Natriuretic Peptide 244 H (0-100) pg/ml Total Protein 7.5 (6.0-8.3) gm/dl Albumin 4.3 (3.4-5.0) gm/dl Globulin 3.2 (2.5-4.0) gm/dl Albumin/Globulin Ratio 1.3 (0.9-2) Procalcitonin 0.08 (0-0.5) ng/ml TSH 0.557 (0.300-4.500) uIu/ml Adenovirus (PCR) Not Detected (NotDetected) B. pertussis DNA (PCR) Not Detected (NotDetected) B.parapertussis DNA PCR Not Detected (NotDetected) C. pneumoniae DNA (PCR) Not Detected (NotDetected) Coronavirus OC43 (PCR) Not Detected (NotDetected) Coronavirus HKU1 (PCR) Not Detected (NotDetected) Coronavirus 229E (PCR) Not Detected (NotDetected) SARS-CoV-2 (PCR) Not Detected (NotDetected) Coronavirus NL63 (PCR) Not Detected (NotDetected) Human Metapneumovir PCR Not Detected (NotDetected) Influenza Type A (PCR) Not Detected (NotDetected) Influenza Type B (PCR) Not Detected (NotDetected) M. pneumoniae (PCR) Not Detected (NotDetected) Parainfluenza 1 (PCR) Not Detected (NotDetected) Parainfluenza 2 (PCR) Not Detected (NotDetected) Parainfluenza 3 (PCR) Not Detected (NotDetected) Parainfluenza 4 (PCR) Not Detected (NotDetected) RSV (PCR) Not Detected (NotDetected) Entero/Rhino (PCR) Not Detected (NotDetected) 09/25/23 Range/Units 00:05 WBC (4.8-10.8) K/ul RBC (4.20-5.40) M/uL Hgb (12.0-16.0) g/dl Hct (37.0-47.0) % MCV (80.0-100.0) fL MCH (25.0-34.0) pg MCHC (32.0-36.0) g/dL RDW Std Deviation (36.4-46.3) fL RDW Coeff of Nuzhat (11.5-14.5) % Plt Count (130-400) K/uL MPV (9.4-12.4) fL Immature Gran % (Auto) % Neut % (Auto) % Lymph % (Auto) % [place] % (Auto) % Eos % (Auto) % Baso % (Auto) % Neut # (Auto) (1.40-6.50) K/uL Lymph # (Auto) (1.20-3.40) K/uL [place] # (Auto) (0.11-0.59) K/uL Eos # (Auto) (0.00-0.50) K/uL Baso # (Auto) (0.00-0.20) K/uL Immature Gran # (Auto) (0.01-0.20) K/uL PT (9.0-12.0) Seconds INR (0.9-1.1) APTT (21-31) Seconds PTT Ratio ABG pH 7.32 L (7.35-7.45) ABG pCO2 54 H (35-46) mmHg ABG pO2 105 H (80-95) mmHg ABG HCO3 28 H (19-24) mmol/L ABG O2 Saturation 99.2 H (90-95) % ABG Base Excess 0.7 (-9-1.8) mEq/L Saleem Test Pos (Pos) VBG pH (7.36-7.41) VBG pCO2 (38-50) mmHg VBG pO2 mmHg VBG HCO3 mmol/L VBG O2 Saturation % VBG Base Excess mEq/L Oxygen Given 30% FIO2 Sodium (136-145) mmol/L Potassium (3.5-5.1) mmol/L Chloride (98-107) mmol/L Carbon Dioxide (21-32) mmol/L Anion Gap (3-11) BUN (6-23) mg/dl Creatinine (0.6-1.2) mg/dl Est Cr Clr Drug Dosing Est GFR ( Amer) ml/min Est GFR (Non-Af Amer) ml/min BUN/Creatinine Ratio (10-20) Glucose (70-99(Fasting)) mg/dl Lactate (0.4-2.0) mmol/L Calcium (8.6-10.3) mg/dl Magnesium (1.7-2.4) mg/dl Total Bilirubin (0.2-1.0) mg/dl AST (13-39) U/L ALT (7-52) U/L Alkaline Phosphatase (34-104) U/L Troponin I High Sens (0-14) pg/ml B-Natriuretic Peptide (0-100) pg/ml Total Protein (6.0-8.3) gm/dl Albumin (3.4-5.0) gm/dl Globulin (2.5-4.0) gm/dl Albumin/Globulin Ratio (0.9-2) Procalcitonin (0-0.5) ng/ml TSH (0.300-4.500) uIu/ml Adenovirus (PCR) (NotDetected) B. pertussis DNA (PCR) (NotDetected) B.parapertussis DNA PCR (NotDetected) C. pneumoniae DNA (PCR) (NotDetected) Coronavirus OC43 (PCR) (NotDetected) Coronavirus HKU1 (PCR) (NotDetected) Coronavirus 229E (PCR) (NotDetected) SARS-CoV-2 (PCR) (NotDetected) Coronavirus NL63 (PCR) (NotDetected) Human Metapneumovir PCR (NotDetected) Influenza Type A (PCR) (NotDetected) Influenza Type B (PCR) (NotDetected) M. pneumoniae (PCR) (NotDetected) Parainfluenza 1 (PCR) (NotDetected) Parainfluenza 2 (PCR) (NotDetected) Parainfluenza 3 (PCR) (NotDetected) Parainfluenza 4 (PCR) (NotDetected) RSV (PCR) (NotDetected) Entero/Rhino (PCR) (NotDetected) Administered Medications Magnesium Sulfate/Dextrose (Magnesium Sulfate / D5w) 1 gm in 100 mls @ 50 mls/hr IV ONE ONE Stop: 09/25/23 01:44 Last Admin: 09/25/23 00:07 Dose: 50 mls/hr Documented By: EJW Potassium Chloride/Sodium Chloride (Normal Saline W/20 Meq Kcl) 20 meq in 1,000 mls @ 50 mls/hr IV .Q20H ONE; Protocol Stop: 09/25/23 19:44 Last Admin: 09/25/23 00:04 Dose: 50 mls/hr Documented By: BRUCE Ipratropium [place] (Ipratropium [place] Neb Soln 0.02% 0.5mg/2.5ml Vial) 0.5 mg INH Q6R MARIAH Stop: 10/25/23 00:59 Last Admin: 09/25/23 01:12 Dose: 0.5 mg Documented By: KEVIN Levalbuterol HCl (Levalbuterol 1.25 Mg/3 Ml Neb) 1.25 mg NEB Q6R MARIAH Stop: 10/25/23 00:59 Last Admin: 09/25/23 01:12 Dose: 1.25 mg Documented By: KEVIN Discontinued Medications Albuterol (Albut/Ipratrop 3mg/0.5mg Neb 3 Ml Vial) 12 ml NEB ONE ONE; Protocol Stop: 09/24/23 21:53 Last Admin: 09/24/23 22:11 Dose: 12 ml Documented By: ANDRAE Doxycycline Hyclate (Doxycycline Hyclate 100 Mg Cap) 100 mg PO NOW STA Stop: 09/24/23 22:41 Last Admin: 09/24/23 23:23 Dose: 100 mg Documented By: BRUCE Ampicillin Sodium/Sulbactam Sodium 3,000 mg/ Sodium Chloride 100 mls @ 200 mls/hr IV NOW STA Stop: 09/25/23 01:12 Last Admin: 09/25/23 01:19 Dose: 200 mls/hr Documented By: BRUCE Methylprednisolone (Methylprednisolone 125 Mg/2 Ml Vial) 60 mg IV NOW STA Stop: 09/24/23 21:53 Last Admin: 09/24/23 22:13 Dose: 60 mg Documented By: ANDRAE Metoprolol Tartrate (Metoprolol Tartrate 1 Mg/Ml Vial) 2.5 mg IV NOW STA Stop: 09/24/23 23:48 Last Admin: 09/25/23 00:07 Dose: 2.5 mg Documented By: BRUCE Imaging Data Radiologist's Impression: Chest X-Ray 09/24/23 21:44 SINGLE VIEW CHEST CLINICAL HISTORY: Dyspnea FINDINGS: An AP, portable, upright chest radiograph is compared to study dated 08/10/2017. Surgical clips are seen in the right lower neck. The heart is enlarged noting atherosclerotic calcification of the thoracic aorta. The pulmonary vasculature is noncongested. Chronic interstitial thickening is similar to previous. There is mild bibasilar scarring/atelectasis. No airspace consolidation or large pleural effusion is identified. No pneumothorax is seen. The skeletal structures are osteopenic. The bony thorax is grossly intact. IMPRESSION: Cardiomegaly with no active disease in the chest. ACT 112: Negative or not required by law. Electronically signed by: Didier Mcgarry M.D. 09/24/2023 10:[address] 09/24/23 21:53 CT SCAN OF THE BRAIN WITHOUT IV CONTRAST CLINICAL HISTORY: Change in mental status. COMPARISON STUDY: CT of the brain dated 04/22/2013. TECHNIQUE: Unenhanced axial CT scan of the brain is performed from the vertex to the skull base. A dose lowering technique was utilized adhering to the principles of ALARA. CT DOSE: 547.75 mGy.cm FINDINGS: Brain parenchyma: There is age-related involutional change noting moderate to advanced subcortical and periventricular microangiopathic disease. There is no hemorrhage, mass effect, or evidence of acute territorial ischemia by CT criteria. Bauer-white matter differentiation is preserved. No extra-axial fluid collection is seen. Ventricles, sulci, cisterns: Prominent secondary to involutional change. Intracranial vasculature: There is atherosclerotic calcification of the cavernous carotid and vertebral arteries. Calvarium: Unremarkable. Sinuses and mastoids: There is moderate mucosal thickening in the left maxillary antrum with an air-fluid level. The remaining visualized paranasal sinuses are clear. There are bilateral mastoid effusions. Orbits: The bony orbits are grossly intact. There are bilateral ocular lens implants. IMPRESSION: There is no hemorrhage, mass effect, or evidence of acute territorial ischemia by CT criteria. ACT 112: Negative or not required by law. Electronically signed by: Didier Mcgarry M.D. 09/24/2023 10:51 PM Discharge Plan Visit Data Chief Complaint: Confusion Stated Complaint: CONFUSION,WHEEZING,WEAK ED Provider: Drake Khan Discharge Problem: Acute hypercapnic respiratory failure, Breathlessness, Cough, Confusion Patient Disposition: Being Evaluated by Hospitalist Discharge Instructions Interventions: ED Discharge Assessment Last Done: 09/25/23 01:33 Forms Stand Alone Forms: My [facility] Prescriptions Prescriptions: No Action aspirin [Adult Aspirin Regimen] 81 mg tablet,delayed release (DR/EC) 81 mg PO DAILY atorvastatin 10 mg tablet 10 mg PO QPM carvedilol [Coreg] 25 mg tablet 25 mg PO BID hydroxyzine HCl 10 mg tablet 10 mg PO TID PRN (Reason: Itching) lisinopril 5 mg tablet 5 mg PO BID lorazepam 0.5 mg tablet 0.5 mg BUCCAL QID PRN (Reason: Anxiety) hydralazine 10 mg tablet 15 mg PO TID ipratropium-albuterol 0.5 mg-3 mg(2.5 mg base)/3 mL Solution For Nebulization 3 ml INHALATION QID PRN (Reason: Shortness Of Breath Or Wheezing) hydrocodone-acetaminophen 5-325 mg tablet 1 tab PO Q8 PRN (Reason: Pain) triamcinolone acetonide 0.1 % cream 1 applic TOPICAL BID PRN (Reason: .Neck & chest) [id number]-fzsgdcjhkduom-vtma 50-325-40 mg tablet 1 tab PO DIRECTED PRN (Reason: Migraine Headache) nitroglycerin [Nitrostat] 0.4 mg Tablet, Sublingual 0.4 mg sublingual DIRECTED PRN (Reason: Chest Pain) gabapentin 100 mg capsule 200 mg PO BID albuterol sulfate 90 mcg/actuation Hfa Aerosol Inhaler 2 puff INHALATION Q6H PRN (Reason: Shortness Of Breath Or Wheezing) Rx Instructions: daughter does not remember this but it is on gmg list escitalopram oxalate 20 mg tablet 20 mg PO QAM ezetimibe 10 mg tablet 10 mg PO DAILY budesonide-formoterol [Symbicort] 160-4.5 mcg/actuation Hfa Aerosol Inhaler 2 puff INHALATION BID Combivent Respimat 20-100 mcg/actuation Mist 1 puff INHALATION QID PRN (Reason: Shortness Of Breath Or Wheezing) Rx Instructions: space evenly during waking hours Trulicity 0.75 mg/0.5 mL pen injector 0.75 mg subcut .Q FRI Rx Instructions: 0.75 mg subcutaneously omeprazole magnesium [Prilosec OTC] 20 mg tablet,delayed release (DR/EC) 20 mg PO DAILY Referrals Referrals: Jose Bowles MD [Primary Care Provider] -
[2023-09-24 22:35] LABS: Thyroid Stimulating Hormone 0.557 uIu/ml (0.300-4.500)
[2023-09-24 22:51] LABS: Adenovirus PCR Not Detected (NotDetected); Bordetella parapertussis PCR Not Detected (NotDetected); Bordetella pertussis PCR Not Detected (NotDetected); Chlamydia pneumoniae PCR Not Detected (NotDetected); Coronavirus 229E PCR Not Detected (NotDetected); Coronavirus CoV-2 (COVID19)PCR Not Detected (NotDetected); Coronavirus HKU1 PCR Not Detected (NotDetected); Coronavirus NL63 PCR Not Detected (NotDetected); Coronavirus OC43PCR Not Detected (NotDetected); Human Metapneumovirus PCR Not Detected (NotDetected); Influenza A PCR Not Detected (NotDetected); Influenza B PCR Not Detected (NotDetected); Mycoplasma pneumoniae PCR Not Detected (NotDetected); Parainfluenza Virus 1 PCR Not Detected (NotDetected); Parainfluenza Virus 2 PCR Not Detected (NotDetected); Parainfluenza Virus 3 PCR Not Detected (NotDetected); Parainfluenza Virus 4 PCR Not Detected (NotDetected); Respiratory Syncytial VirusPCR Not Detected (NotDetected); Rhinovirus/Enterovirus PCR Not Detected (NotDetected)
--- NOTE | 2023-09-24 22:52 | CT Scan Report ---
CT SCAN OF THE BRAIN WITHOUT IV CONTRAST CLINICAL HISTORY: Change in mental status. COMPARISON STUDY: CT of the brain dated 04/22/2013. TECHNIQUE: Unenhanced axial CT scan of the brain is performed from the vertex to the skull base. A do se lowering technique was utilized adhering to the principles of ALARA. CT DOSE: 547.75 mGy.cm FINDINGS: Brain parenchyma: There is age-related involutional change noting moderate to advanced subcortical an d periventricular microangiopathic disease. There is no hemorrhage, mass effect, or evidence of acute territorial ischemia by CT criteria. Bauer-white matter differentiation is preserved. No extra-axial fluid collection is seen. Ventricles, sulci, cisterns: Prominent secondary to involutional change. Intracranial vasculature: There is atherosclerotic calcification of the cavernous carotid and vertebr al arteries. Calvarium: Unremarkable. Sinuses and mastoids: There is moderate mucosal thickening in the left maxillary antrum with an air-f luid level. The remaining visualized paranasal sinuses are clear. There are bilateral mastoid effusio ns. Orbits: The bony orbits are grossly intact. There are bilateral ocular lens implants. IMPRESSION: There is no hemorrhage, mass effect, or evidence of acute territorial ischemia by CT yuniel martinez. ACT 112: Negative or not required by law. Electronically signed by: Didier Mcgrary M.D. 09/24/2023 10:51 PM
[2023-09-24] MEDS: DOXYCYCLINE HYCLATE 100 MG CAP PO STA (23:23)
[2023-09-25] MEDS: NSS + 20MEQ KCL 20 MEQ/1,000 ML BAG IV ONE (00:04)
[2023-09-25] MEDS: MAGNESIUM SULFATE / D5W 1 GM/100 ML BAG IV ONE (00:07)
[2023-09-25] MEDS: METOPROLOL TARTRATE 1 MG/ML VIAL IV STA ×2 (00:07→03:36)
[2023-09-25 00:24] LABS: Base Excess ABG 0.7 mEq/L (-9-1.8); HCO3 ABG 28 mmol/L (19-24); Oxygen Saturation ABG 99.2 % (90-95); PCO2 ABG 54 mmHg (35-46); PO2 ABG 105 mmHg (80-95); pH ABG 7.32 (7.35-7.45)
--- NOTE | 2023-09-25 00:26 | History & Physical Report ---
Date of Service September 25, 2023 Assessment & Plan (1) Acute hypercapnic respiratory failure: Plan: hx chronic respiratory failure secondary to COPD on home O2, underlying pulmonary hypertension/cor pulmonale Multifactorial asthma/COPD exacerbation possible aspiration pneumonitis from possible esophageal dysfunction Mild fluid overload possibly from respiratory illness and uncontrolled hypertension, hx valvular heart disease (severe , mild to moderate MR/TR) hx PSVT hyperlipidemia on statin Rx DM2 on oral medications, well-controlled as of hemoglobin A1c of 6.06 March 2023 hx GERD anxiety/mood disorder, patient slightly anxious during exam PCU Tweak BiPAP settings ABG to follow initial VBG Pulmonary consult if without improvement (Patient known to [facility].) Unasyn followed by Augmentin for possible aspiration pneumonitis, nebs RTC, prednisone course Lasix 1 dose now Strict I/Os, daily weights, CHF medication Update TTE Titrate home BP meds Basal bolus insulin adjusted for n.p.o. status while on BiPAP for now, ISS BG goal 1 10-1 40, update hemoglobin A1c Palliative care consult to clarify goals of care given significant cardiopulmonary comorbidities. Of note, patient was told by her [facility] [place] tender last year that procedures for severe valvular heart disease would be high risk for her and would not change her quality of life dramatically. DVT prophylaxis. Lovenox subcu Full code for now as per family until further discussion with digital asset specialist. Patient daughter requesting updates providers. Ms. Leatha Gomez, contact #[phone]. Total critical care time was 45 minutes. Text document was generated using [employer] voice recognition software. It may contain grammatical or spelling errors. Kindly contact undersigned for clarification of any documentation item in question. History of Present Illness Chief Complaint: Shortness of breath, confusion Primary Care Provider: Jose Bowles MD History obtained from patient, family, and records. Limited history from patient secondary to marked hearing impairment. Medical history significant for chronic respiratory failure secondary to COPD on home O2, bronchial asthma, cor pulmonale/pulmonary hypertension, nocturnal hypoxemia as per records, valvular heart disease (severe , mild to moderate MR/TR), PSVT, hypertension, hyperlipidemia, DM2 on oral medications, GERD, anxiety/mood disorder. Last confinement 2012 for metabolic encephalopathy secondary to Proteus UTI. 1 week history of junky cough symptoms associated with pleuritic chest pain and worsening shortness of breath. Patient noted to be more confused than usual. Food occasionally getting stuck in the throat. Not sure about sick contacts. Denies fluid retention. O2 sats 80s upon arrival at the ER. BiPAP initiated; Solu-Medrol, neb treatment, and doxycycline administered at the ER. 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 Allergies Allergy/AdvReac Type Severity Reaction Status Date / Time No Known Allergies Allergy Verified 09/25/23 00:18 Home Medications Medication Instructions Recorded Confirmed Type aspirin 81 mg tablet,delayed 81 mg PO DAILY 11/17/18 09/24/23 History release (Adult Aspirin Regimen) atorvastatin 10 mg tablet 10 mg PO QPM 11/17/18 09/24/23 History carvedilol 25 mg tablet (Coreg) 25 mg PO BID 11/17/18 09/24/23 History hydroxyzine HCl 10 mg tablet 10 mg PO TID PRN Itching 11/17/18 09/25/23 History lisinopril 5 mg tablet 5 mg PO BID 11/17/18 09/24/23 History lorazepam 0.5 mg tablet 0.5 mg buccal QID PRN Anxiety 03/08/19 09/24/23 History hydralazine 10 mg tablet 15 mg PO TID 03/13/20 09/24/23 History albuterol sulfate 90 mcg/actuation 2 puff inhalation Q6H PRN 09/24/23 09/25/23 History aerosol inhaler Shortness Of Breath Or Wheezing budesonide-formoterol HFA 160 2 puff inhalation BID 09/24/23 09/25/23 History mcg-4.5 mcg/actuation aerosol inhaler (Symbicort) mdmvlfrqdw-eotynzzzukpcv-kgphspno 1 tab PO DIRECTED PRN Migraine 09/24/23 09/25/23 History 50 mg-325 mg-40 mg tablet Headache dulaglutide 0.75 mg/0.5 mL 0.75 mg subcut .Q FRI 09/24/23 09/25/23 History subcutaneous pen injector (Trulicity) escitalopram oxalate 20 mg tablet 20 mg PO QAM 09/24/23 09/25/23 History ezetimibe 10 mg tablet 10 mg PO DAILY 09/24/23 09/25/23 History gabapentin 100 mg capsule 200 mg PO BID 09/24/23 09/24/23 History hydrocodone 5 mg-acetaminophen 325 1 tab PO Q8 PRN Pain 09/24/23 09/24/23 History mg tablet ipratropium 0.5 mg-albuterol 3 mg 3 ml inhalation QID PRN Shortness 09/24/23 09/25/23 History (2.5 mg base)/3 mL nebulization Of Breath Or Wheezing soln ipratropium 20 mcg-albuterol 100 1 puff inhalation QID PRN 09/24/23 09/25/23 History mcg/actuation mist for inhalation Shortness Of Breath Or Wheezing (Combivent Respimat) nitroglycerin 0.4 mg sublingual 0.4 mg sublingual DIRECTED PRN 09/24/23 09/25/23 History tablet (Nitrostat) Chest Pain triamcinolone acetonide 0.1 % 1 applic topical BID PRN .Neck & 09/24/23 09/25/23 History topical cream chest omeprazole magnesium 20 mg 20 mg PO DAILY 09/25/23 09/25/23 History tablet,delayed release (Prilosec OTC) Past Med/Surg History Medical History (Updated 09/24/23 @ 22:41 by Drake Khan M.D.) Cervicogenic headache Heart murmur Bereavement History of COPD Nocturnal hypoxia Myofascial pain Lumbago Cervicalgia Cervical facet syndrome UTI (urinary tract infection) (04/22/13) Sepsis Hypomagnesemia Hyperglycemia Diabetes Confusion associated with infection COPD exacerbation Altered mental status (04/22/13) Chronic reflux esophagitis Diabetes mellitus type 1 COPD (chronic obstructive pulmonary disease) Vertebral artery occlusion Migraine headache Carotid artery stenosis HTN (hypertension) Surgical History (Updated 11/08/22 @ 14:56 by Sherry Clark RN) Hx of cataract surgery H/O: hysterectomy Family History (Updated 11/08/22 @ 14:57 by Sherry Clark RN) Mother Hypertension Asthma Social History Smoking Status: Never smoker Second Hand Exposure: No; Do You Dip or Chew Tobacco: No; Tobacco Cessation Education Requested by Patient: No Hx Alcohol Use: No Hx Substance Use: No Preferred Language: Italian Communication Ability: Effective Visual Impairment: Limited Hearing Ability: Hard of Hearing Forestry Biology Specialist Required: No Beliefs That Will Affect Care: None marital status: Current Living Situation: Family current occupational status: retired Other Information That Helps Us Care for You: No Feels Safe at Home: Yes Safety Concerns: Feels Safe At This Time Assistive Devices: BiPap and Oxygen - Continuous Review of Systems Review of Systems: Could not be reliably obtained secondary to marked hearing impairment Physical Exam Physical Exam: GENERAL: uncomfortable, anxious, obese, minimal respiratory distress SKIN: Normal color, warm HEENT: [place] palpebral conjunctivae, no ptosis, dry buccal mucosa, BiPAP in place NECK : Supple, no tenderness CHEST : Decreased breath sounds, no tenderness HEART : Tachycardic, systolic murmur ABDOMEN: Some distention, nontender EXTREMITIES : No LE swelling/tenderness, no other conspicuous deformities noted NEUROLOGIC : Oriented to month and year, no facial asymmetry, hard of hearing, gait and stance not assessed Results & Data Results & Data Vital Signs (Past 12 Hours) Vital Signs Temp Pulse Pulse Resp BP BP Pulse Ox 09/25/23 00:14 90 23 99 09/25/23 00:09 89 19 160/95 H 100 09/25/23 00:07 94 H 160/95 H 09/24/23 22:52 88 15 100 09/24/23 22:31 95 H 17 100 09/24/23 22:30 92 H 14 100 09/24/23 22:15 172/104 H 09/24/23 22:15 98 H 18 100 09/24/23 22:01 101 H 22 100 09/24/23 22:01 196/116 H 09/24/23 22:00 100 H 19 100 09/24/23 21:53 147/114 H 09/24/23 21:53 103 H 22 100 09/24/23 21:45 193/126 H 09/24/23 21:45 97 H 18 100 09/24/23 21:45 99 09/24/23 21:44 171/133 H 09/24/23 21:44 98 H 20 100 09/24/23 21:44 99 09/24/23 21:37 100 H 19 100 09/24/23 21:24 98 09/24/23 21:20 37.3 C 94 H 22 193/84 H 88 L O2 Del Method O2 Flow Rate FiO2 09/25/23 00:14 30 09/25/23 00:09 BiPAP 30 09/25/23 00:07 09/24/23 22:52 30 09/24/23 22:31 Nebulizer 09/24/23 22:30 09/24/23 22:15 09/24/23 22:15 09/24/23 22:01 09/24/23 22:01 09/24/23 22:00 09/24/23 21:53 09/24/23 21:53 09/24/23 21:45 09/24/23 21:45 09/24/23 21:45 Nasal Cannula 2 09/24/23 21:44 09/24/23 21:44 09/24/23 21:44 Nasal Cannula 2 09/24/23 21:37 09/24/23 21:24 Nasal Cannula 2 09/24/23 21:20 Room Air Laboratory Results Laboratory Results WBC 11.62 K/ul (4.8-10.8) H 09/24/23 21:39 RBC 4.12 M/uL (4.20-5.40) L 09/24/23 21:39 Hgb 12.4 g/dl (12.0-16.0) 09/24/23 21:39 Hct 37.2 % (37.0-47.0) 09/24/23 21:39 MCV 90.3 fL (80.0-100.0) 09/24/23 21:39 MCH 30.1 pg (25.0-34.0) 09/24/23 21:39 MCHC 33.3 g/dL (32.0-36.0) 09/24/23 21:39 RDW Std Deviation 42.8 fL (36.4-46.3) 09/24/23 21:39 RDW Coeff of Nuzhat 13.0 % (11.5-14.5) 09/24/23 21:39 Plt Count 243 K/uL (130-400) 09/24/23 21:39 MPV 9.0 fL (9.4-12.4) L 09/24/23 21:39 Immature Gran % (Auto) 0.8 % 09/24/23 21:39 Neut % (Auto) 71.6 % 09/24/23 21:39 Lymph % (Auto) 16.3 % 09/24/23 21:39 [place] % (Auto) 6.8 % 09/24/23 21:39 Eos % (Auto) 3.8 % 09/24/23 21:39 Baso % (Auto) 0.7 % 09/24/23 21:39 Neut # (Auto) 8.33 K/uL (1.40-6.50) H 09/24/23 21:39 Lymph # (Auto) 1.89 K/uL (1.20-3.40) 09/24/23 21:39 [place] # (Auto) 0.79 K/uL (0.11-0.59) H 09/24/23 21:39 Eos # (Auto) 0.44 K/uL (0.00-0.50) 09/24/23 21:39 Baso # (Auto) 0.08 K/uL (0.00-0.20) 09/24/23 21:39 Immature Gran # (Auto) 0.09 K/uL (0.01-0.20) 09/24/23 21:39 PT 10.8 Seconds (9.0-12.0) 09/24/23 21:39 INR 1.0 (0.9-1.1) 09/24/23 21:39 APTT 28 Seconds (21-31) 09/24/23 21:39 PTT Ratio 1.0 09/24/23 21:39 ABG pH 7.32 (7.35-7.45) L 09/25/23 00:05 ABG pCO2 54 mmHg (35-46) H 09/25/23 00:05 ABG pO2 105 mmHg (80-95) H 09/25/23 00:05 ABG HCO3 28 mmol/L (19-24) H 09/25/23 00:05 ABG O2 Saturation 99.2 % (90-95) H 09/25/23 00:05 ABG Base Excess 0.7 mEq/L (-9-1.8) 09/25/23 00:05 VBG pH 7.22 (7.36-7.41) L 09/24/23 21:39 VBG pCO2 75 mmHg (38-50) H 09/24/23 21:39 VBG pO2 35 mmHg 09/24/23 21:39 VBG HCO3 31 mmol/L 09/24/23 21:39 VBG O2 Saturation 61.1 % 09/24/23 21:39 VBG Base Excess 0.8 mEq/L 09/24/23 21:39 Sodium 135 mmol/L (136-145) L 09/24/23 21:39 Potassium 4.7 mmol/L (3.5-5.1) 09/24/23 21:39 Chloride 98 mmol/L (98-107) 09/24/23 21:39 Carbon Dioxide 29 mmol/L (21-32) 09/24/23 21:39 Anion Gap 8 (3-11) 09/24/23 21:39 BUN 32 mg/dl (6-23) H 09/24/23 21:39 Creatinine 1.09 mg/dl (0.6-1.2) 09/24/23 21:39 Est Cr Clr Drug Dosing Not Reportable 09/24/23 21:39 Est GFR ( Amer) 53.2 ml/min 09/24/23 21:39 Est GFR (Non-Af Amer) 45.9 ml/min 09/24/23 21:39 BUN/Creatinine Ratio 29.4 (10-20) H 09/24/23 21:39 Glucose 158 mg/dl (70-99(Fasting)) H 09/24/23 21:39 Lactate 0.6 mmol/L (0.4-2.0) 09/24/23 22:50 Calcium 9.3 mg/dl (8.6-10.3) 09/24/23 21:39 Magnesium 1.8 mg/dl (1.7-2.4) 09/24/23 21:39 Total Bilirubin 0.5 mg/dl (0.2-1.0) 09/24/23 21:39 AST 9 U/L (13-39) L 09/24/23 21:39 ALT 4 U/L (7-52) L 09/24/23 21:39 Alkaline Phosphatase 51 U/L (34-104) 09/24/23 21:39 Troponin I High Sens 6.5 pg/ml (0-14) 09/24/23 21:39 B-Natriuretic Peptide 244 pg/ml (0-100) H 09/24/23 21:39 Total Protein 7.5 gm/dl (6.0-8.3) 09/24/23 21:39 Albumin 4.3 gm/dl (3.4-5.0) 09/24/23 21:39 Globulin 3.2 gm/dl (2.5-4.0) 09/24/23 21:39 Albumin/Globulin Ratio 1.3 (0.9-2) 09/24/23 21:39 Procalcitonin 0.08 ng/ml (0-0.5) 09/24/23 21:39 TSH 0.557 uIu/ml (0.300-4.500) 09/24/23 21:39 Adenovirus (PCR) Not Detected (NotDetected) 09/24/23 21:50 B. pertussis DNA (PCR) Not Detected (NotDetected) 09/24/23 21:50 B.parapertussis DNA PCR Not Detected (NotDetected) 09/24/23 21:50 C. pneumoniae DNA (PCR) Not Detected (NotDetected) 09/24/23 21:50 Coronavirus OC43 (PCR) Not Detected (NotDetected) 09/24/23 21:50 Coronavirus HKU1 (PCR) Not Detected (NotDetected) 09/24/23 21:50 Coronavirus 229E (PCR) Not Detected (NotDetected) 09/24/23 21:50 SARS-CoV-2 (PCR) Not Detected (NotDetected) 09/24/23 21:50 Coronavirus NL63 (PCR) Not Detected (NotDetected) 09/24/23 21:50 Human Metapneumovir PCR Not Detected (NotDetected) 09/24/23 21:50 Influenza Type A (PCR) Not Detected (NotDetected) 09/24/23 21:50 Influenza Type B (PCR) Not Detected (NotDetected) 09/24/23 21:50 M. pneumoniae (PCR) Not Detected (NotDetected) 09/24/23 21:50 Parainfluenza 1 (PCR) Not Detected (NotDetected) 09/24/23 21:50 Parainfluenza 2 (PCR) Not Detected (NotDetected) 04/20/24 21:50 Parainfluenza 3 (PCR) Not Detected (NotDetected) 09/24/23 21:50 Parainfluenza 4 (PCR) Not Detected (NotDetected) 09/24/23 21:50 RSV (PCR) Not Detected (NotDetected) 09/24/23 21:50 Entero/Rhino (PCR) Not Detected (NotDetected) 09/24/23 21:50 Impressions Chest X-Ray 09/24/23 21:44 SINGLE VIEW CHEST CLINICAL HISTORY: Dyspnea FINDINGS: An AP, portable, upright chest radiograph is compared to study dated 08/10/2017. Surgical clips are seen in the right lower neck. The heart is enlarged noting atherosclerotic calcification of the thoracic aorta. The pulmonary vasculature is noncongested. Chronic interstitial thickening is similar to previous. There is mild bibasilar scarring/atelectasis. No airspace consolidation or large pleural effusion is identified. No pneumothorax is seen. The skeletal structures are osteopenic. The bony thorax is grossly intact. IMPRESSION: Cardiomegaly with no active disease in the chest. ACT 112: Negative or not required by law. Electronically signed by: Didier Mcgarry M.D. 09/24/2023 10:[address] 09/24/23 21:53 CT SCAN OF THE BRAIN WITHOUT IV CONTRAST CLINICAL HISTORY: Change in mental status. COMPARISON STUDY: CT of the brain dated 04/22/2013. TECHNIQUE: Unenhanced axial CT scan of the brain is performed from the vertex to the skull base. A dose lowering technique was utilized adhering to the principles of ALARA. CT DOSE: 547.75 mGy.cm FINDINGS: Brain parenchyma: There is age-related involutional change noting moderate to advanced subcortical and periventricular microangiopathic disease. There is no hemorrhage, mass effect, or evidence of acute territorial ischemia by CT criteria. Bauer-white matter differentiation is preserved. No extra-axial fluid collection is seen. Ventricles, sulci, cisterns: Prominent secondary to involutional change. Intracranial vasculature: There is atherosclerotic calcification of the cavernous carotid and vertebral arteries. Calvarium: Unremarkable. Sinuses and mastoids: There is moderate mucosal thickening in the left maxillary antrum with an air-fluid level. The remaining visualized paranasal sinuses are clear. There are bilateral mastoid effusions. Orbits: The bony orbits are grossly intact. There are bilateral ocular lens implants. IMPRESSION: There is no hemorrhage, mass effect, or evidence of acute territorial ischemia by CT criteria. ACT 112: Negative or not required by law. Electronically signed by: Didier Mcgarry M.D. 09/24/2023 10:[address] chest: 1. No pulmonary embolus. 2. Interseptal thickening is concerning for pulmonary edema. Diagnostic Findings EKG as per my interpretation :Rate 100, NSR, normal axis, septal infarct, no ischemia
[2023-09-25] MEDS ORDERED: hydrOXYzine HCl 10 MG TAB PO PRN (00:30)
[2023-09-25] MEDS ORDERED: oxyCODONE HCL IR 5 MG TAB (IMMEDIATE RELEASE) PO PRN (00:30)
[2023-09-25] MEDS ORDERED: PROMETHAZINE HCL 6.25 MG in SODIUM CHLORIDE 0.9% 50 ML IV PRN (00:30)
[2023-09-25 00:43] LABS: Allen Test Pos (Pos)
[2023-09-25] MEDS: IPRATROPIUM BROMIDE NEB SOLN 0.02% 0.5MG/2.5ML VIAL INH SCH (01:12)
[2023-09-25] MEDS: LEVALBUTEROL 1.25 MG/3 ML NEB NEB SCH (01:12)
[2023-09-25] MEDS: AMPICILLIN/SULBACTAM SOD 3,000 MG in SODIUM CHLOR 0.9% MINI-B 100 ML IV STA (01:19)
[2023-09-25] MEDS: OPTIRAY 320 125ml IV ONE (01:53)
[2023-09-25] MEDS: INSULIN ASPART PER UNIT CHARGE SC SCH ×2 (02:00→13:24)
[2023-09-25] MEDS ORDERED: DEXTROSE 50% 50 ML SYRINGE IV PRN (02:13)
[2023-09-25] MEDS ORDERED: NITROGLYCERIN SL 0.4 MG/TAB TAB SL PRN (02:13)
[2023-09-25] MEDS ORDERED: GLUCOSE 10 TAB/TUBE PO PRN (02:13)
[2023-09-25] MEDS ORDERED: GLUCAGON FOR INJ 1 MG VIAL SQ PRN (02:13)
[2023-09-25] MEDS ORDERED: GLUCOSE 40% GEL 15 GM TUBE PO PRN (02:13)
[2023-09-25] MEDS ORDERED: CARBOHYDRATES FOR HYPOGLYCEMIA PO PRN (02:13)
--- NOTE | 2023-09-25 02:16 | CT Scan Report ---
Exam(s): CTA CHEST IV Amt: 117 ml opti 320 EXAM: CT Angiography Chest With Intravenous Contrast CLINICAL HISTORY: Chest Pain. TECHNIQUE: Axial computed tomographic angiography images of the chest with intravenous contrast. MIPS images were created and reviewed. CTDI is 20. 28 mGy and DLP is 629.39 mGy-cm. Automated exposure control was utilized for the study. A dose lowering technique was utilized adhering to the principles of ALARA. MIP reconstructed images were created and reviewed. COMPARISON: CTA chest 08/19/2008 FINDINGS: Pulmonary arteries: Unremarkable. No pulmonary embolus. Aorta: Mild atherosclerosis. No thoracic aortic aneurysm. Lungs: Interseptal thickening is concerning for pulmonary edema. No mass. Pleural space: Unremarkable. No significant effusion. No pneumothorax. Heart: Unremarkable. No cardiomegaly. No significant pericardial effusion. No evidence of RV dysfunction. Bones/joints: There are degenerative changes of the spine. No acute fracture. Soft tissues: Unremarkable. Lymph nodes: Unremarkable. No enlarged lymph nodes. IMPRESSION: 1. No pulmonary embolus. 2. Interseptal thickening is concerning for pulmonary edema. Electronically signed by: Qian Feliciano MD 09/25/23 02:14 AM
[2023-09-25] MEDS: LANTUS PER UNIT CHARGE SQ SCH (03:10)
[2023-09-25] MEDS: hydrALAZINE HCL 20 MG/ML VIAL IV ONE (03:44)
[2023-09-25] MEDS: FUROSEMIDE INJ 20 MG/2 ML VIAL IV ONE (03:45)
[2023-09-25 05:53] LABS: Appearance Urine Clear (Clear); Bilirubin Urine Negative (Negative); Blood Urine Trace (Negative); Color Urine Yellow; Glucose Urine UA Trace (Negative); Ketones Urine 1+ (Negative); Leukocyte Esterase Urine Negative (Negative); Nitrite Urine Positive (Negative); Protein Urine Negative (Negative); Specific Gravity Urine 1.022 (1.000-1.030); Urobilinogen Urine Negative (Negative)
[2023-09-25 06:04] LABS: Bacteria Urine Automated None Seen (Negative); Cast Urine Automated 0-2 /lpf (0-5); RBC Urine Automated 0-2 /hpf (0-4); WBC Urine Automated 0-5 /hpf (0-5)
[2023-09-25 06:11] LABS: Base Excess VBG 2.8 mEq/L; HCO3 VBG 29 mmol/L; Oxygen Saturation VBG < 60.0 %; PCO2 VBG 47 mmHg (38-50); PO2 VBG 30 mmHg; pH VBG 7.39 (7.36-7.41)
[2023-09-25 06:30] LABS: BUN Creatinine Ratio 30.2 (10-20); Calcium 9.6 mg/dl (8.6-10.3); Creatinine Clr Calc Pharmacy 36.8 ml/min; Est GFR (African American) 62.1 ml/min; Est GFR (Non-African American) 53.6 ml/min; Potassium 4.3 mmol/L (3.5-5.1)
[2023-09-25 06:41] LABS: Hematocrit (blood only) 38.6 % (37.0-47.0); Hemoglobin 13.2 g/dl (12.0-16.0); Mean Corpuscular Hemoglobin 29.7 pg (25.0-34.0); Mean Corpuscular Hgb Conc 34.2 g/dL (32.0-36.0); Mean Corpuscular Volume 86.7 fL (80.0-100.0); Platelet Count 258 K/uL (130-400); RDW Coefficient of Variation 12.7 % (11.5-14.5); RDW Standard Deviation 39.9 fL (36.4-46.3); Red Blood Count 4.45 M/uL (4.20-5.40); White Blood Count 9.44 K/ul (4.8-10.8)
[2023-09-25 07:13] LABS: Basophils # (auto) 0.04 K/uL (0.00-0.20); Basophils % (auto) 0.4 %; Eosinophils # (auto) 0.01 K/uL (0.00-0.50); Eosinophils % (auto) 0.1 %; Immature Granulocytes # (auto) 0.06 K/uL (0.01-0.20); Immature Granulocytes % (auto) 0.6 %; Lymphocytes # (auto) 0.79 K/uL (1.20-3.40); Lymphocytes % (auto) 8.4 %; Monocytes # (auto) 0.07 K/uL (0.11-0.59); Monocytes % (auto) 0.7 %; Neutrophils # (auto) 8.47 K/uL (1.40-6.50); Neutrophils % (auto) 89.8 %
[2023-09-25 07:59] LABS: Estimated Average Glucose 120 mg/dl; Hemoglobin A1C 5.8 % (4.5-5.6)
[2023-09-25] MEDS: FLUTICASONE/VILANTEROL 100/25MCG 14 PUFFS/INHALER INH SCH (08:21)
[2023-09-25] MEDS: ACETAMINOPHEN 325 MG TAB PO PRN (08:21)
[2023-09-25] MEDS: hydrALAZINE 10 MG TAB PO SCH (08:22)
[2023-09-25] MEDS: lisinopril 5 MG TAB PO SCH (08:22)
[2023-09-25] MEDS: GABAPENTIN 100 MG CAP PO SCH (08:22)
[2023-09-25] MEDS: EZETIMIBE 10 MG TAB PO SCH (08:22)
[2023-09-25] MEDS: ESCITALOPRAM OXALATE 20 MG TAB PO SCH (08:22)
[2023-09-25] MEDS: carvediloL 25 MG TAB PO SCH (08:22)
[2023-09-25] MEDS: PANTOprazole 40 MG TAB PO SCH ×2 (08:23→20:47)
[2023-09-25] MEDS: ASPIRIN 81 MG ECTAB PO SCH (08:23)
[2023-09-25] MEDS: predniSONE 20 MG TAB PO SCH (08:23)
[2023-09-25] MEDS: ENOXAPARIN INJ 30 MG/0.3 ML SYR SQ SCH (08:23)
[2023-09-25] MEDS: AMOXICILLIN/CLAVULANATE 875 MG TAB PO SCH (08:23)
--- NOTE | 2023-09-25 14:15 | Hospitalist Progress Note ---
Date of Service September 25, 2023 Assessment & Plan (1) Acute hypercapnic respiratory failure: Plan: Acute on chronic hypoxic, hypercarbic respiratory failure Chronic oxygen dependency Acute COPD exacerbation H/O Pulmonary hypertension/cor pulmonale Acute metabolic encephalopathy secondary to above --CTA:No pulmonary embolus. Interseptal thickening is concerning for pulmonary edema. --CT Head:There is no hemorrhage, mass effect, or evidence of acute territorial ischemia by CT criteria. --BioFire negative Continue Augmentin, nebs, prednisone Continue home inhalers Could not tolerate BiPAP Continue supplemental oxygen to keep saturation 88 to 92% Reorient frequently to minimize delirium Hypertensive urgency Likely situational Continue carvedilol, lisinopril, hydralazine Monitor BP Valvular heart disease severe , mild to moderate MR/TR Continue home medications Monitor volume status Dysphagia Possible aspiration Atypical chest discomfort likely secondary to above H/O GERD Aspiration precautions Continue PPI Empirically on Augmentin Speech therapy evaluated May need video swallow study DM II HbA1c 5.8 Hold home regimen Continue insulin per protocol Monitor BGs Other chronic conditions: PSVT Hyperlipidemia Anxiety/mood disorder Continue home medications DVT Px: Lovenox SQ Code Status Full code for now Palliative care consulted to address goals of care Disposition PT OT prior to discharge Admission and Anticipated Discharge Date Admission Date: September 25, 2023 Subjective Patient is seen and examined at bedside Dyspnea better when compared to yesterday Reports cough with yellowish expectoration States having intermittent chest discomfort after eating Did not seem to tolerate BiPAP use Currently saturating well on 2 L supplemental oxygen Reports chronic orthopnea No other complaints Mental status seem to be back to baseline Review of Systems Review of Systems: All systems reviewed & are unremarkable except as noted in Subjective Physical Exam Physical Exam: Physical Exam: Vitals signs as noted above General Appearance:Obese, no apparent distress Head: normocephalic, Atraumatic Eyes: normal inspection, EOMI Neck: supple, Trachea midline Respiratory/Chest: Decreased breath sounds, CTA, No accessory muscle use Cardiovascular: S1, S2, +murmur Abdomen/GI:Soft, Non tender, Bowel sounds present Extremities/Musculoskeletal:normal inspection, no edema Neurologic/Psych:AAOX2, grossly no focal neurological deficits, +decreased hearing Skin: normal color, warm Results & Data Results & Data Vital Signs (Past 12 Hours) Vital Signs Temp Pulse Pulse Resp BP BP Pulse Ox 09/25/23 12:54 88 20 96 09/25/23 10:37 36.4 C L 89 19 145/84 H 96 09/25/23 09:00 95 H 09/25/23 09:00 09/25/23 08:09 95 H 19 96 09/25/23 07:24 36.3 C L 90 20 153/83 H 97 09/25/23 05:43 136/72 09/25/23 03:48 36.9 C 97 H 18 183/97 H 99 09/25/23 02:47 09/25/23 02:31 36.4 C 99 H 22 196/90 H 97 O2 Del Method O2 Flow Rate FiO2 09/25/23 12:54 Nasal Cannula 2 09/25/23 10:37 Nasal Cannula 2 09/25/23 09:00 09/25/23 09:00 Nasal Cannula 2 09/25/23 08:09 Nasal Cannula 2 09/25/23 07:24 Nasal Cannula 2 09/25/23 05:43 09/25/23 03:48 BiPAP 09/25/23 02:47 BiPAP 09/25/23 02:31 BiPAP 30 Laboratory Results Short CBC 09/24/23 09/25/23 Range/Units 21:39 05:38 WBC 11.62 H 9.44 (4.8-10.8) K/ul Hgb 12.4 13.2 (12.0-16.0) g/dl Hct 37.2 38.6 (37.0-47.0) % Plt Count 243 258 (130-400) K/uL BMP 09/24/23 09/25/23 21:39 05:38 Sodium 135 L 133 L Potassium 4.7 4.3 Chloride 98 95 L Carbon Dioxide 29 27 BUN 32 H 29 H Creatinine 1.09 0.96 Glucose 158 H 214 H Calcium 9.3 9.6 Liver Function 09/24/23 Range/Units 21:39 Total Bilirubin 0.5 (0.2-1.0) mg/dl AST 9 L (13-39) U/L ALT 4 L (7-52) U/L Alkaline Phosphatase 51 (34-104) U/L Albumin 4.3 (3.4-5.0) gm/dl Urine 09/25/23 Range/Units Unknown Urine Color Yellow Urine Appearance Clear (Clear) Urine pH 6.0 (4.5-7.5) Ur Specific [place] 1.022 (1.000-1.030) Urine Protein Negative (Negative) Urine Glucose (UA) Trace H (Negative)
--- NOTE | 2023-09-25 15:25 | Communication Note ---
Date of Service: September 25, 2023 Discussed with patient and patient's daughter at bedside. Patient prefers to be DNI DNR after prolonged discussion about patient's condition. Patient and patient's daughter agrees with current management.
[2023-09-25] MEDS: NYSTATIN POWDER 15GM BTL EXT PRN (17:55)
--- NOTE | 2023-09-25 23:04 | Electrocardiogram Report ---
Test Reason : Blood Pressure : / mmHG Vent. Rate : 098 BPM Atrial Rate : 098 BPM P-R Int : 204 ms QRS Dur : 076 ms QT Int : 346 ms P-R-T Axes : 080 016 035 degrees QTc Int : 441 ms Normal sinus rhythm Normal ECG When compared with ECG of 10-DEC-2015 16:44, T wave amplitude has increased in Anterior leads Confirmed by Jl Doty ([id number]) on 09/25/2023 11:04:31 PM Referred By: REFERRED SELF Confirmed By:Jl Doty
[2023-09-26 06:23] LABS: Base Excess VBG 6.9 mEq/L; HCO3 VBG 33 mmol/L; Oxygen Saturation VBG < 60.0 %; PCO2 VBG 52 mmHg (38-50); PO2 VBG 36 mmHg; pH VBG 7.41 (7.36-7.41)
[2023-09-26 06:27] LABS: Hematocrit (blood only) 32.6 % (37.0-47.0); Hemoglobin 11.6 g/dl (12.0-16.0); Mean Corpuscular Hemoglobin 29.9 pg (25.0-34.0); Mean Corpuscular Hgb Conc 35.6 g/dL (32.0-36.0); Mean Platelet Volume 9.2 fL (9.4-12.4); Platelet Count 236 K/uL (130-400); RDW Coefficient of Variation 12.7 % (11.5-14.5); RDW Standard Deviation 38.6 fL (36.4-46.3); Red Blood Count 3.88 M/uL (4.20-5.40); White Blood Count 11.22 K/ul (4.8-10.8)
[2023-09-26 07:03] LABS: BUN Creatinine Ratio 39.2 (10-20); Calcium 9.5 mg/dl (8.6-10.3); Creatinine Clr Calc Pharmacy 34.6 ml/min; Est GFR (African American) 57.7 ml/min; Est GFR (Non-African American) 49.8 ml/min; Magnesium 1.9 mg/dl (1.7-2.4); Potassium 4.2 mmol/L (3.5-5.1)
--- NOTE | 2023-09-26 11:13 | XCELERA ---
[id number]
[2023-09-26] MEDS: SODIUM CHLORIDE 0.9% 1,000 ML IV ONE (15:24)
--- NOTE | 2023-09-26 16:28 | Hospitalist Progress Note ---
Date of Service September 26, 2023 Assessment & Plan (1) Acute hypercapnic respiratory failure: Plan: Acute on chronic hypoxic, hypercarbic respiratory failure Chronic oxygen dependency Acute COPD exacerbation H/O Pulmonary hypertension/cor pulmonale Acute metabolic encephalopathy secondary to above --CTA:No pulmonary embolus. Interseptal thickening is concerning for pulmonary edema. --CT Head:There is no hemorrhage, mass effect, or evidence of acute territorial ischemia by CT criteria. --BioFire negative Continue Augmentin, nebs, prednisone Continue home inhalers Could not tolerate BiPAP Continue supplemental oxygen to keep saturation 88 to 92% Reorient frequently to minimize delirium Slightly hypercarbic on VBG today Will consider to use BiPAP at bedtime Appreciate palliative care input Patient/family plans to discuss with other family members to see if hospice is an option on discharge Hypertensive urgency Likely situational Continue carvedilol, lisinopril, hydralazine Monitor BP Valvular heart disease severe , mild to moderate MR/TR Continue home medications Monitor volume status Dysphagia Possible aspiration Atypical chest discomfort likely secondary to above H/O GERD Aspiration precautions Continue PPI Empirically on Augmentin Speech therapy evaluated May need video swallow study Tolerating current diet DM II HbA1c 5.8 Hold home regimen Continue insulin per protocol Monitor BGs Other chronic conditions: PSVT Hyperlipidemia Anxiety/mood disorder Continue home medications DVT Px: Lovenox SQ Code Status Full code for now Palliative care consulted to address goals of care Disposition PT OT prior to discharge Admission and Anticipated Discharge Date Admission Date: September 25, 2023 Subjective Patient is seen and examined at bedside Less dyspnea, cough today Denies any chest pain today Discussed with palliative care today Saturating low 90s on room Review of Systems Review of Systems: All systems reviewed & are unremarkable except as noted in Subjective Physical Exam Physical Exam: Physical Exam: Vitals signs as noted above General Appearance:Obese, no apparent distress Head: normocephalic, Atraumatic Eyes: normal inspection, EOMI Neck: supple, Trachea midline Respiratory/Chest: Decreased breath sounds, CTA, No accessory muscle use Cardiovascular: S1, S2, +murmur Abdomen/GI:Soft, Non tender, Bowel sounds present Extremities/Musculoskeletal:normal inspection, no edema Neurologic/Psych:AAOX2, grossly no focal neurological deficits, +decreased hearing Skin: normal color, warm Results & Data Results & Data Vital Signs (Past 12 Hours) Vital Signs Temp Pulse Pulse Resp BP BP Pulse Ox 09/26/23 15:30 36.5 C 77 16 117/48 L 93 09/26/23 15:21 36.4 C L 72 17 163/82 H 100 09/26/23 15:14 75 09/26/23 13:13 76 16 09/26/23 11:17 80 09/26/23 11:00 36.4 C L 72 17 152/86 H 95 09/26/23 10:38 09/26/23 07:17 78 17 98 09/26/23 07:15 36.4 C L 78 19 189/81 H 97 O2 Del Method FiO2 09/26/23 15:30 Room Air 09/26/23 15:21 Room Air 09/26/23 15:14 09/26/23 13:13 Room Air 91 09/26/23 11:17 09/26/23 11:00 Room Air 09/26/23 10:38 Room Air 09/26/23 07:17 Room Air 21 09/26/23 07:15 Room Air Laboratory Results Short CBC 09/26/23 Range/Units 05:32 WBC 11.22 H (4.8-10.8) K/ul Hgb 11.6 L (12.0-16.0) g/dl Hct 32.6 L (37.0-47.0) % Plt Count 236 (130-400) K/uL BMP 09/26/23 05:32 Sodium 133 L Potassium 4.2 Chloride 96 L Carbon Dioxide 30 BUN 40 H Creatinine 1.02 Glucose 150 H Calcium 9.5
--- NOTE | 2023-09-26 21:14 | Palliative Care Consultation ---
Date of Consultation September 26, 2023 Assessment & Plan (1) Dyspnea and respiratory abnormalities: (2) Weakness generalized: (3) Severe muscle deconditioning: (4) Advanced care planning/counseling discussion: A 30-minute [id number] advance care planning discussion was held with patient, her daughter and her granddaughter at the bedside. Her daughter shares that they discussed CODE STATUS last night and transition to a no code decision. Her daughter also shares that they really feel patient needs more help at home and a little more oversight as she is alone at home for few hours a day between when family is checking on her. They asked about options for home health support and notes that they do not have the finances to pay for private [id number] caregiving. Although patient lives with her son, he does work full-time on a schedule that is 4 days on and 3 days off than 3 days on then 4 days off. He does try to prepare her meals but he does not assist with any of her other ADLs or personal care. Her daughters take turns coming to the house to bathe her, cleaning the house, do her laundry. They also bring her meals to eat through the day. She is not able to do any type of meal prep but is able to still feed herself. We discussed the option of visiting nurse services versus home hospice services.We discussed the goals of hospice as a patient service and the goals of care; we discussed EOL trajectories and transitions sandor the emotional impact of realizing mortality as a concrete reality from prior abstract considerations. Pt was reassured that no matter where they are along this trajectory, they are not alone - their medical team will remain by their side through their journey. Discussed the pros/cons of accepting help when especially weakened and distressed by pain-which would also help provide relief/decrease caregiver burden/strain. I provided education about the hospice benefit: an interdisciplinary program offered by nurses, nurses aides, social workers, chaplains and a medical records technician for patients with a terminal condition and a life expectancy of less than 6 months. This is covered by Medicare at 100%/no out of pocket expense to patient and all meds/supplies needed by patient for the reason they are on hospice are paid for/covered by hospice. The goal is assure quality of life of the patient in their home setting (home, skilled nursing, inpatient hospice setting) by providing symptoms management, psychosocial and spiritual support. However, they cannot offer 24 hours care and if the family is unable to provide that care, they will have to consider personal care with out of pocket cost vs. skilled nursing placement. We discussed the goals of hospice as a patient service and the goals of care; we discussed EOL trajectories and transitions sandor the emotional impact of realizing mortality as a concrete reality from prior abstr act considerations. Pt was reassured that no matter where they are along this trajectory, they are not alone - their medical team will remain by their side through their journey. Discussed the pros/cons of accepting help when especially weakened and distressed by pain-which would also help provide relief/decrease caregiver burden/strain. Patient and daughter are interested in home hospice referral but daughter notes that she would like to review this with her brother first as he is often "kind of weird about letting people into the house." I encouraged them to also discuss with friends and other family members prior experiences they may have had with the area hospice agencies before making a choice with care management tomorrow. (5) Encounter for hospice care discussion: See #4 above (6) Palliative care by specialist: Met with pt/family. Provided overview of Palliative Medicine, a subspecialty that provides specialized medical care for people living with a serious illness by offering a focus on quality of life. Palliative Medicine is often conflated with hospice: I advised patient/family that Palliative and hospice can be partners but we are not the same. It is important to understand the difference so that we may be informed, and not afraid. Palliative Medicine works to improve QOL through reduction of symptom burden/more control over their illness, for both the patient and family. Palliative medicine clinicians are board certified, specially-trained and another member of the patient's medical care team. We often provide an extra layer of support because our care is based on the needs of the patient, not the prognosis; as such, it's appropriate at any age/advancing stage of a serious illness and can be provided along with curative treatment. Palliative Medicine clinicians are also trained in advanced communication methodologies, to facilitate complex discussions about advanced illness planning, which are needed to help assure that the treatment choices match the patient's goals, aka delivering Goal Concordant care. Finally, we discussed that hospice is a visiting nurse service that focuses on care delivere d at the very end of life for patients with terminal illness, with life expectancy less than 6 month. Plan * Patient and daughter are leaning towards a home with hospice discharge but would like to speak to their friends and family about recommended agencies before finalizing this with care management. * Patient's daughter also notes that she needs to review this recommendation with her brother as he is often very particular about allowing people into the home. She will update care management tomorrow with a final decision. * Patient reaffirms her no code selection. Thank you for allowing us to participate in the ongoing care of this patient. Please don't hesitate to call or page with any additional concerns. Dr. Fern Owen DNP Director, Palliative Care History of Present Illness Reason for Consultation: Goals of care, advanced COPD Attending Physician: Dakotah Vinson MD History of Present Illness Lori is an 88-year-old female admitted from home with progressive dyspnea, weakness and fatigue. She has advanced COPD. She has a lifelong exposure to secondhand smoke and heavy quantities from her father as a child who was a multi pack per day smoker and then her longtime who is also a multi pack smoker. Patient herself is a non-smoker. She is seen together with her daughter and granddaughter present. She states that she is easily fatigued with minimal exertion. She is short of breath with any exertion. She requires help with her personal care, and all of her ADLs except feeding. She lives in a private home together with her son who does work during the day. He does prepare her meals but is not home with her through the day. Her daughter and granddaughters check on her after work and also help with her bathing, some meal preparation, as well as all of her laundry and personal care. Allergies Allergy/AdvReac Type Severity Reaction Status Date / Time No Known Allergies Allergy Verified 09/25/23 00:18 Home Medications Medication Instructions Recorded Confirmed Type aspirin 81 mg tablet,delayed 81 mg PO DAILY 11/17/18 09/24/23 History release (Adult Aspirin Regimen) atorvastatin 10 mg tablet 10 mg PO QPM 11/17/18 09/24/23 History carvedilol 25 mg tablet (Coreg) 25 mg PO BID 11/17/18 09/24/23 History hydroxyzine HCl 10 mg tablet 10 mg PO TID PRN Itching 11/17/18 09/25/23 History lisinopril 5 mg tablet 5 mg PO BID 11/17/18 09/24/23 History lorazepam 0.5 mg tablet 0.5 mg buccal QID PRN Anxiety 03/08/19 09/24/23 History hydralazine 10 mg tablet 15 mg PO TID 03/13/20 09/24/23 History albuterol sulfate 90 mcg/actuation 2 puff inhalation Q6H PRN 09/24/23 09/25/23 History aerosol inhaler Shortness Of Breath Or Wheezing budesonide-formoterol HFA 160 2 puff inhalation BID 09/24/23 09/25/23 History mcg-4.5 mcg/actuation aerosol inhaler (Symbicort) jtlaultnma-sjtanycqhqkct-cyqeatxb 1 tab PO DIRECTED PRN Migraine 09/24/23 09/25/23 History 50 mg-325 mg-40 mg tablet Headache dulaglutide 0.75 mg/0.5 mL 0.75 mg subcut .Q FRI 09/24/23 09/25/23 History subcutaneous pen injector (Trulicity) escitalopram oxalate 20 mg tablet 20 mg PO QAM 09/24/23 09/25/23 History ezetimibe 10 mg tablet 10 mg PO DAILY 09/24/23 09/25/23 History gabapentin 100 mg capsule 200 mg PO BID 09/24/23 09/24/23 History hydrocodone 5 mg-acetaminophen 325 1 tab PO Q8 PRN Pain 09/24/23 09/24/23 History mg tablet ipratropium 0.5 mg-albuterol 3 mg 3 ml inhalation QID PRN Shortness 09/24/23 09/25/23 History (2.5 mg base)/3 mL nebulization Of Breath Or Wheezing soln ipratropium 20 mcg-albuterol 100 1 puff inhalation QID PRN 09/24/23 09/25/23 History mcg/actuation mist for inhalation Shortness Of Breath Or Wheezing (Combivent Respimat) nitroglycerin 0.4 mg sublingual 0.4 mg sublingual DIRECTED PRN 09/24/23 09/25/23 History tablet (Nitrostat) Chest Pain triamcinolone acetonide 0.1 % 1 applic topical BID PRN .Neck & 09/24/23 09/25/23 History topical cream chest omeprazole magnesium 20 mg 20 mg PO DAILY 09/25/23 09/25/23 History tablet,delayed release (Prilosec OTC) Patient History Medical History (Updated 09/26/23 @ 21:09 by Fern Owen DNP) Palliative care by specialist Encounter for hospice care discussion Advanced care planning/counseling discussion Severe muscle deconditioning Weakness generalized Dyspnea and respiratory abnormalities Cervicogenic headache Heart murmur Bereavement History of COPD Nocturnal hypoxia Myofascial pain Lumbago Cervicalgia Cervical facet syndrome UTI (urinary tract infection) (04/22/13) Sepsis Hypomagnesemia Hyperglycemia Diabetes Confusion associated with infection COPD exacerbation Altered mental status (04/22/13) Chronic reflux esophagitis COPD (chronic obstructive pulmonary disease) Vertebral artery occlusion Migraine headache Carotid artery stenosis HTN (hypertension) Surgical History (Updated 11/08/22 @ 14:56 by Sherry Clark RN) Hx of cataract surgery H/O: hysterectomy Family History (Updated 11/08/22 @ 14:57 by Sherry Clark RN) Mother Hypertension Asthma Social History Smoking Status: Never smoker Second Hand Exposure: No; Do You Dip or Chew Tobacco: No; Tobacco Cessation Education Requested by Patient: No Hx Alcohol Use: No Hx Substance Use: No Preferred Language: Chinese Communication Ability: Impaired Visual Impairment: Limited Hearing Ability: Hard of Hearing Honeycomb Decapper Required: No Beliefs That Will Affect Care: None marital status: Current Living Situation: Family current occupational status: retired Other Information That Helps Us Care for You: No Feels Safe at Home: Yes Safety Concerns: Feels Safe At This Time Assistive Devices: Oxygen - Continuous and Walker Review of Systems Review of Systems: All systems reviewed & are unremarkable except as noted in Subjective Physical Exam Physical Exam: Elderly female, chronically ill-appearing. There is bitemporal wasting. Pupils are equal and reactive to light. Neck is supple and without stridor. Dentition is poor. There is multiple caries, decay and fractures noted. Respiratory effort is increased with conversational dyspnea noted. There is some use of accessory muscles. Lungs are diminished throughout. There is a faint wheeze noted. Heart tones are S1-S2, apical rate 94. Abdomen is softly distended, bowel signs +. There is no tenderness to palpation noted. There is generalized weakness. Her skin is pale and cool to touch. Her skin is dry. She is awake alert and oriented x 3. Results & Data Vital Signs (Past 12 Hours) Vital Signs Temp Pulse Pulse Resp BP BP Pulse Ox 09/26/23 19:36 36.6 C 78 18 151/70 H 99 09/26/23 19:16 82 18 94 09/26/23 15:30 36.5 C 77 16 117/48 L 93 09/26/23 15:21 36.4 C L 72 17 163/82 H 100 09/26/23 15:14 75 09/26/23 13:13 76 16 09/26/23 11:17 80 09/26/23 11:00 36.4 C L 72 17 152/86 H 95 09/26/23 10:38 O2 Del Method FiO2 09/26/23 19:36 Room Air 09/26/23 19:16 Room Air 09/26/23 15:30 Room Air 09/26/23 15:21 Room Air 09/26/23 15:14 09/26/23 13:13 Room Air 91 09/26/23 11:17 09/26/23 11:00 Room Air 09/26/23 10:38 Room Air Laboratory Results 09/26/23 09/26/23 09/26/23 Range/Units 20:21 16:04 11:44 WBC (4.8-10.8) K/ul RBC (4.20-5.40) M/uL Hgb (12.0-16.0) g/dl Hct (37.0-47.0) % MCV (80.0-100.0) fL MCH (25.0-34.0) pg MCHC (32.0-36.0) g/dL RDW Std Deviation (36.4-46.3) fL RDW Coeff of Nuzhat (11.5-14.5) % Plt Count (130-400) K/uL MPV (9.4-12.4) fL Immature Gran % (Auto) % Neut % (Auto) % Lymph % (Auto) % [place]s % (Auto) % Eos % (Auto) % Baso % (Auto) % Neut # (Auto) (1.40-6.50) K/uL Lymph # (Auto) (1.20-3.40) K/uL [place]s # (Auto) (0.11-0.59) K/uL Eos # (Auto) (0.00-0.50) K/uL Baso # (Auto) (0.00-0.20) K/uL Immature Gran # (Auto) (0.01-0.20) K/uL PT (9.0-12.0) Seconds INR (0.9-1.1) APTT (21-31) Seconds PTT Ratio ABG pH (7.35-7.45) ABG pCO2 (35-46) mmHg ABG pO2 (80-95) mmHg ABG HCO3 (19-24) mmol/L ABG O2 Saturation (90-95) % ABG Base Excess (-9-1.8) mEq/L Saleem Test (Pos) VBG pH (7.36-7.41) VBG pCO2 (38-50) mmHg VBG pO2 mmHg VBG HCO3 mmol/L VBG O2 Saturation % VBG Base Excess mEq/L Oxygen Given Sodium (136-145) mmol/L Potassium (3.5-5.1) mmol/L Chloride (98-107) mmol/L Carbon Dioxide (21-32) mmol/L Anion Gap (3-11) BUN (6-23) mg/dl Creatinine (0.6-1.2) mg/dl Est Cr Clr Drug Dosing Est GFR ( Amer) ml/min Est GFR (Non-Af Amer) ml/min BUN/Creatinine Ratio (10-20) Glucose (70-99(Fasting)) mg/dl POC Glucose 219 H 224 H 181 H (70-99) mg/dl Estimat Average Glucose mg/dl Hemoglobin A1c (4.5-5.6) % Lactate (0.4-2.0) mmol/L Calcium (8.6-10.3) mg/dl Magnesium (1.7-2.4) mg/dl Total Bilirubin (0.2-1.0) mg/dl AST (13-39) U/L ALT (7-52) U/L Alkaline Phosphatase (34-104) U/L Troponin I High Sens (0-14) pg/ml B-Natriuretic Peptide (0-100) pg/ml Total Protein (6.0-8.3) gm/dl Albumin (3.4-5.0) gm/dl Globulin (2.5-4.0) gm/dl Albumin/Globulin Ratio (0.9-2) Procalcitonin (0-0.5) ng/ml TSH (0.300-4.500) uIu/ml Urine Color Urine Appearance (Clear) Urine pH (4.5-7.5) Ur Specific [place] (1.000-1.030) Urine Protein (Negative) Urine Glucose (UA) (Negative) Urine Ketones (Negative) Urine Blood (Negative) Urine Nitrite (Negative) Urine Bilirubin (Negative) Urine Urobilinogen (Negative) Ur Leukocyte Esterase (Negative) Urine WBC (Auto) (0-5) /hpf Urine RBC (Auto) (0-4) /hpf U Hyaline Cast (Auto) (0-5) /lpf U Epithel Cells (Auto) (0-5) /lpf Urine Bacteria (Auto) (Negative) Adenovirus (PCR) (NotDetected) B. pertussis DNA (PCR) (NotDetected) B.parapertussis DNA PCR (NotDetected) C. pneumoniae DNA (PCR) (NotDetected) Coronavirus OC43 (PCR) (NotDetected) Coronavirus HKU1 (PCR) (NotDetected) Coronavirus 229E (PCR) (NotDetected) SARS-CoV-2 (PCR) (NotDetected) Coronavirus NL63 (PCR) (NotDetected) Human Metapneumovir PCR (NotDetected) Influenza Type A (PCR) (NotDetected) Influenza Type B (PCR) (NotDetected) M. pneumoniae (PCR) (NotDetected) Parainfluenza 1 (PCR) (NotDetected) Parainfluenza 2 (PCR) (NotDetected) Parainfluenza 3 (PCR) (NotDetected) Parainfluenza 4 (PCR) (NotDetected) RSV (PCR) (NotDetected) Entero/Rhino (PCR) (NotDetected) 09/26/23 09/26/23 09/25/23 Range/Units 07:54 05:32 Unknown WBC 11.22 H (4.8-10.8) K/ul RBC 3.88 L (4.20-5.40) M/uL Hgb 11.6 L (12.0-16.0) g/dl Hct 32.6 L (37.0-47.0) % MCV 84.0 (80.0-100.0) fL MCH 29.9 (25.0-34.0) pg MCHC 35.6 (32.0-36.0) g/dL RDW Std Deviation 38.6 (36.4-46.3) fL RDW Coeff of Nuzhat 12.7 (11.5-14.5) % Plt Count 236 (130-400) K/uL MPV 9.2 L (9.4-12.4) fL Immature Gran % (Auto) % Neut % (Auto) % Lymph % (Auto) % [place] % (Auto) % Eos % (Auto) % Baso % (Auto) % Neut # (Auto) (1.40-6.50) K/uL Lymph # (Auto) (1.20-3.40) K/uL [place] # (Auto) (0.11-0.59) K/uL Eos # (Auto) (0.00-0.50) K/uL Baso # (Auto) (0.00-0.20) K/uL Immature Gran # (Auto) (0.01-0.20) K/uL PT (9.0-12.0) Seconds INR (0.9-1.1) APTT (21-31) Seconds PTT Ratio ABG pH (7.35-7.45) ABG pCO2 (35-46) mmHg ABG pO2 (80-95) mmHg ABG HCO3 (19-24) mmol/L ABG O2 Saturation (90-95) % ABG Base Excess (-9-1.8) mEq/L Saleem Test (Pos) VBG pH 7.41 (7.36-7.41) VBG pCO2 52 H (38-50) mmHg VBG pO2 36 mmHg VBG HCO3 33 mmol/L VBG O2 Saturation < 60.0 % VBG Base Excess 6.9 mEq/L Oxygen Given Sodium 133 L (136-145) mmol/L Potassium 4.2 (3.5-5.1) mmol/L Chloride 96 L (98-107) mmol/L Carbon Dioxide 30 (21-32) mmol/L Anion Gap 7 (3-11) BUN 40 H (6-23) mg/dl Creatinine 1.02 (0.6-1.2) mg/dl Est Cr Clr Drug Dosing 34.6 Est GFR ( Amer) 57.7 ml/min Est GFR (Non-Af Amer) 49.8 ml/min BUN/Creatinine Ratio 39.2 H (10-20) Glucose 150 H (70-99(Fasting)) mg/dl POC Glucose 163 H (70-99) mg/dl Estimat Average Glucose mg/dl Hemoglobin A1c (4.5-5.6) % Lactate (0.4-2.0) mmol/L Calcium 9.5 (8.6-10.3) mg/dl Magnesium 1.9 (1.7-2.4) mg/dl Total Bilirubin (0.2-1.0) mg/dl AST (13-39) U/L ALT (7-52) U/L Alkaline Phosphatase (34-104) U/L Troponin I High Sens (0-14) pg/ml B-Natriuretic Peptide (0-100) pg/ml Total Protein (6.0-8.3) gm/dl Albumin (3.4-5.0) gm/dl Globulin (2.5-4.0) gm/dl Albumin/Globulin Ratio (0.9-2) Procalcitonin (0-0.5) ng/ml TSH (0.300-4.500) uIu/ml Urine Color Yellow Urine Appearance Clear (Clear) Urine pH 6.0 (4.5-7.5) Ur Specific [place] 1.022 (1.000-1.030) Urine Protein Negative (Negative) Urine Glucose (UA) Trace H (Negative) Urine Ketones 1+ H (Negative) Urine Blood Trace H (Negative) Urine Nitrite Positive A (Negative) Urine Bilirubin Negative (Negative) Urine Urobilinogen Negative (Negative) Ur Leukocyte Esterase Negative (Negative) Urine WBC (Auto) 0-5 (0-5) /hpf Urine RBC (Auto) 0-2 (0-4) /hpf U Hyaline Cast (Auto) 0-2 (0-5) /lpf U Epithel Cells (Auto) 3-5 (0-5) /lpf Urine Bacteria (Auto) None Seen (Negative) Adenovirus (PCR) (NotDetected) B. pertussis DNA (PCR) (NotDetected) B.parapertussis DNA PCR (NotDetected) C. pneumoniae DNA (PCR) (NotDetected) Coronavirus OC43 (PCR) (NotDetected) Coronavirus HKU1 (PCR) (NotDetected) Coronavirus 229E (PCR) (NotDetected) SARS-CoV-2 (PCR) (NotDetected) Coronavirus NL63 (PCR) (NotDetected) Human Metapneumovir PCR (NotDetected) Influenza Type A (PCR) (NotDetected) Influenza Type B (PCR) (NotDetected) M. pneumoniae (PCR) (NotDetected) Parainfluenza 1 (PCR) (NotDetected) Parainfluenza 2 (PCR) (NotDetected) Parainfluenza 3 (PCR) (NotDetected) Parainfluenza 4 (PCR) (NotDetected) RSV (PCR) (NotDetected) Entero/Rhino (PCR) (NotDetected) 09/25/23 09/25/23 09/25/23 Range/Units 20:46 16:51 11:59 WBC (4.8-10.8) K/ul RBC (4.20-5.40) M/uL Hgb (12.0-16.0) g/dl Hct (37.0-47.0) % MCV (80.0-100.0) fL MCH (25.0-34.0) pg MCHC (32.0-36.0) g/dL RDW Std Deviation (36.4-46.3) fL RDW Coeff of Nuzhat (11.5-14.5) % Plt Count (130-400) K/uL MPV (9.4-12.4) fL Immature Gran % (Auto) % Neut % (Auto) % Lymph % (Auto) % [place] % (Auto) % Eos % (Auto) % Baso % (Auto) % Neut # (Auto) (1.40-6.50) K/uL Lymph # (Auto) (1.20-3.40) K/uL [place] # (Auto) (0.11-0.59) K/uL Eos # (Auto) (0.00-0.50) K/uL Baso # (Auto) (0.00-0.20) K/uL Immature Gran # (Auto) (0.01-0.20) K/uL PT (9.0-12.0) Seconds INR (0.9-1.1) APTT (21-31) Seconds PTT Ratio ABG pH (7.35-7.45) ABG pCO2 (35-46) mmHg ABG pO2 (80-95) mmHg ABG HCO3 (19-24) mmol/L ABG O2 Saturation (90-95) % ABG Base Excess (-9-1.8) mEq/L Saleem Test (Pos) VBG pH (7.36-7.41) VBG pCO2 (38-50) mmHg VBG pO2 mmHg VBG HCO3 mmol/L VBG O2 Saturation % VBG Base Excess mEq/L Oxygen Given Sodium (136-145) mmol/L Potassium (3.5-5.1) mmol/L Chloride (98-107) mmol/L Carbon Dioxide (21-32) mmol/L Anion Gap (3-11) BUN (6-23) mg/dl Creatinine (0.6-1.2) mg/dl Est Cr Clr Drug Dosing Est GFR ( Amer) ml/min Est GFR (Non-Af Amer) ml/min BUN/Creatinine Ratio (10-20) Glucose (70-99(Fasting)) mg/dl POC Glucose 211 H 176 H 204 H (70-99) mg/dl Estimat Average Glucose mg/dl Hemoglobin A1c (4.5-5.6) % Lactate (0.4-2.0) mmol/L Calcium (8.6-10.3) mg/dl Magnesium (1.7-2.4) mg/dl Total Bilirubin (0.2-1.0) mg/dl AST (13-39) U/L ALT (7-52) U/L Alkaline Phosphatase (34-104) U/L Troponin I High Sens (0-14) pg/ml B-Natriuretic Peptide (0-100) pg/ml Total Protein (6.0-8.3) gm/dl Albumin (3.4-5.0) gm/dl Globulin (2.5-4.0) gm/dl Albumin/Globulin Ratio (0.9-2) Procalcitonin (0-0.5) ng/ml TSH (0.300-4.500) uIu/ml Urine Color Urine Appearance (Clear) Urine pH (4.5-7.5) Ur Specific [place] (1.000-1.030) Urine Protein (Negative) Urine Glucose (UA) (Negative) Urine Ketones (Negative) Urine Blood (Negative) Urine Nitrite (Negative) Urine Bilirubin (Negative) Urine Urobilinogen (Negative) Ur Leukocyte Esterase (Negative) Urine WBC (Auto) (0-5) /hpf Urine RBC (Auto) (0-4) /hpf U Hyaline Cast (Auto) (0-5) /lpf U Epithel Cells (Auto) (0-5) /lpf Urine Bacteria (Auto) (Negative) Adenovirus (PCR) (NotDetected) B. pertussis DNA (PCR) (NotDetected) B.parapertussis DNA PCR (NotDetected) C. pneumoniae DNA (PCR) (NotDetected) Coronavirus OC43 (PCR) (NotDetected) Coronavirus HKU1 (PCR) (NotDetected) Coronavirus 229E (PCR) (NotDetected) SARS-CoV-2 (PCR) (NotDetected) Coronavirus NL63 (PCR) (NotDetected) Human Metapneumovir PCR (NotDetected) Influenza Type A (PCR) (NotDetected) Influenza Type B (PCR) (NotDetected) M. pneumoniae (PCR) (NotDetected) Parainfluenza 1 (PCR) (NotDetected) Parainfluenza 2 (PCR) (NotDetected) Parainfluenza 3 (PCR) (NotDetected) Parainfluenza 4 (PCR) (NotDetected) RSV (PCR) (NotDetected) Entero/Rhino (PCR) (NotDetected) 09/25/23 09/25/23 09/25/23 Range/Units 07:56 05:52 05:38 WBC 9.44 (4.8-10.8) K/ul RBC 4.45 (4.20-5.40) M/uL Hgb 13.2 (12.0-16.0) g/dl Hct 38.6 (37.0-47.0) % MCV 86.7 (80.0-100.0) fL MCH 29.7 (25.0-34.0) pg MCHC 34.2 (32.0-36.0) g/dL RDW Std Deviation 39.9 (36.4-46.3) fL RDW Coeff of Nuzhat 12.7 (11.5-14.5) % Plt Count 258 (130-400) K/uL MPV 9.0 L (9.4-12.4) fL Immature Gran % (Auto) 0.6 % Neut % (Auto) 89.8 % Lymph % (Auto) 8.4 % [place] % (Auto) 0.7 % Eos % (Auto) 0.1 % Baso % (Auto) 0.4 % Neut # (Auto) 8.47 H (1.40-6.50) K/uL Lymph # (Auto) 0.79 L (1.20-3.40) K/uL [place] # (Auto) 0.07 L (0.11-0.59) K/uL Eos # (Auto) 0.01 (0.00-0.50) K/uL Baso # (Auto) 0.04 (0.00-0.20) K/uL Immature Gran # (Auto) 0.06 (0.01-0.20) K/uL PT (9.0-12.0) Seconds INR (0.9-1.1) APTT (21-31) Seconds PTT Ratio ABG pH (7.35-7.45) ABG pCO2 (35-46) mmHg ABG pO2 (80-95) mmHg ABG HCO3 (19-24) mmol/L ABG O2 Saturation (90-95) % ABG Base Excess (-9-1.8) mEq/L Saleem Test (Pos) VBG pH 7.39 (7.36-7.41) VBG pCO2 47 (38-50) mmHg VBG pO2 30 mmHg VBG HCO3 29 mmol/L VBG O2 Saturation < 60.0 % VBG Base Excess 2.8 mEq/L Oxygen Given Sodium 133 L (136-145) mmol/L Potassium 4.3 (3.5-5.1) mmol/L Chloride 95 L (98-107) mmol/L Carbon Dioxide 27 (21-32) mmol/L Anion Gap 11 (3-11) BUN 29 H (6-23) mg/dl Creatinine 0.96 (0.6-1.2) mg/dl Est Cr Clr Drug Dosing 36.8 Est GFR ( Amer) 62.1 ml/min Est GFR (Non-Af Amer) 53.6 ml/min BUN/Creatinine Ratio 30.2 H (10-20) Glucose 214 H (70-99(Fasting)) mg/dl POC Glucose 125 H 205 H (70-99) mg/dl Estimat Average Glucose 120 mg/dl Hemoglobin A1c 5.8 H (4.5-5.6) % Lactate (0.4-2.0) mmol/L Calcium 9.6 (8.6-10.3) mg/dl Magnesium (1.7-2.4) mg/dl Total Bilirubin (0.2-1.0) mg/dl AST (13-39) U/L ALT (7-52) U/L Alkaline Phosphatase (34-104) U/L Troponin I High Sens (0-14) pg/ml B-Natriuretic Peptide (0-100) pg/ml Total Protein (6.0-8.3) gm/dl Albumin (3.4-5.0) gm/dl Globulin (2.5-4.0) gm/dl Albumin/Globulin Ratio (0.9-2) Procalcitonin (0-0.5) ng/ml TSH (0.300-4.500) uIu/ml Urine Color Urine Appearance (Clear) Urine pH (4.5-7.5) Ur Specific [place] (1.000-1.030) Urine Protein (Negative) Urine Glucose (UA) (Negative) Urine Ketones (Negative) Urine Blood (Negative) Urine Nitrite (Negative) Urine Bilirubin (Negative) Urine Urobilinogen (Negative) Ur Leukocyte Esterase (Negative) Urine WBC (Auto) (0-5) /hpf Urine RBC (Auto) (0-4) /hpf U Hyaline Cast (Auto) (0-5) /lpf U Epithel Cells (Auto) (0-5) /lpf Urine Bacteria (Auto) (Negative) Adenovirus (PCR) (NotDetected) B. pertussis DNA (PCR) (NotDetected) B.parapertussis DNA PCR (NotDetected) C. pneumoniae DNA (PCR) (NotDetected) Coronavirus OC43 (PCR) (NotDetected) Coronavirus HKU1 (PCR) (NotDetected) Coronavirus 229E (PCR) (NotDetected) SARS-CoV-2 (PCR) (NotDetected) Coronavirus NL63 (PCR) (NotDetected) Human Metapneumovir PCR (NotDetected) Influenza Type A (PCR) (NotDetected) Influenza Type B (PCR) (NotDetected) M. pneumoniae (PCR) (NotDetected) Parainfluenza 1 (PCR) (NotDetected) Parainfluenza 2 (PCR) (NotDetected) Parainfluenza 3 (PCR) (NotDetected) Parainfluenza 4 (PCR) (NotDetected) RSV (PCR) (NotDetected) Entero/Rhino (PCR) (NotDetected) 09/25/23 09/25/23 09/24/23 Range/Units 04:15 00:05 22:50 WBC (4.8-10.8) K/ul RBC (4.20-5.40) M/uL Hgb (12.0-16.0) g/dl Hct (37.0-47.0) % MCV (80.0-100.0) fL MCH (25.0-34.0) pg MCHC (32.0-36.0) g/dL RDW Std Deviation (36.4-46.3) fL RDW Coeff of Nuzhat (11.5-14.5) % Plt Count (130-400) K/uL MPV (9.4-12.4) fL Immature Gran % (Auto) % Neut % (Auto) % Lymph % (Auto) % Rooks % (Auto) % Eos % (Auto) % Baso % (Auto) % Neut # (Auto) (1.40-6.50) K/uL Lymph # (Auto) (1.20-3.40) K/uL Rooks # (Auto) (0.11-0.59) K/uL Eos # (Auto) (0.00-0.50) K/uL Baso # (Auto) (0.00-0.20) K/uL Immature Gran # (Auto) (0.01-0.20) K/uL PT (9.0-12.0) Seconds INR (0.9-1.1) APTT (21-31) Seconds PTT Ratio ABG pH 7.32 L (7.35-7.45) ABG pCO2 54 H (35-46) mmHg ABG pO2 105 H (80-95) mmHg ABG HCO3 28 H (19-24) mmol/L ABG O2 Saturation 99.2 H (90-95) % ABG Base Excess 0.7 (-9-1.8) mEq/L Saleem Test Pos (Pos) VBG pH (7.36-7.41) VBG pCO2 (38-50) mmHg VBG pO2 mmHg VBG HCO3 mmol/L VBG O2 Saturation % VBG Base Excess mEq/L Oxygen Given 30% FIO2 Sodium (136-145) mmol/L Potassium (3.5-5.1) mmol/L Chloride (98-107) mmol/L Carbon Dioxide (21-32) mmol/L Anion Gap (3-11) BUN (6-23) mg/dl Creatinine (0.6-1.2) mg/dl Est Cr Clr Drug Dosing Est GFR ( Amer) ml/min Est GFR (Non-Af Amer) ml/min BUN/Creatinine Ratio (10-20) Glucose (70-99(Fasting)) mg/dl POC Glucose 235 H (70-99) mg/dl Estimat Average Glucose mg/dl Hemoglobin A1c (4.5-5.6) % Lactate 0.6 (0.4-2.0) mmol/L Calcium (8.6-10.3) mg/dl Magnesium (1.7-2.4) mg/dl Total Bilirubin (0.2-1.0) mg/dl AST (13-39) U/L ALT (7-52) U/L Alkaline Phosphatase (34-104) U/L Troponin I High Sens (0-14) pg/ml B-Natriuretic Peptide (0-100) pg/ml Total Protein (6.0-8.3) gm/dl Albumin (3.4-5.0) gm/dl Globulin (2.5-4.0) gm/dl Albumin/Globulin Ratio (0.9-2) Procalcitonin (0-0.5) ng/ml TSH (0.300-4.500) uIu/ml Urine Color Urine Appearance (Clear) Urine pH (4.5-7.5) Ur Specific [place] (1.000-1.030) Urine Protein (Negative) Urine Glucose (UA) (Negative) Urine Ketones (Negative) Urine Blood (Negative) Urine Nitrite (Negative) Urine Bilirubin (Negative) Urine Urobilinogen (Negative) Ur Leukocyte Esterase (Negative) Urine WBC (Auto) (0-5) /hpf Urine RBC (Auto) (0-4) /hpf U Hyaline Cast (Auto) (0-5) /lpf U Epithel Cells (Auto) (0-5) /lpf Urine Bacteria (Auto) (Negative) Adenovirus (PCR) (NotDetected) B. pertussis DNA (PCR) (NotDetected) B.parapertussis DNA PCR (NotDetected) C. pneumoniae DNA (PCR) (NotDetected) Coronavirus OC43 (PCR) (NotDetected) Coronavirus HKU1 (PCR) (NotDetected) Coronavirus 229E (PCR) (NotDetected) SARS-CoV-2 (PCR) (NotDetected) Coronavirus NL63 (PCR) (NotDetected) Human Metapneumovir PCR (NotDetected) Influenza Type A (PCR) (NotDetected) Influenza Type B (PCR) (NotDetected) M. pneumoniae (PCR) (NotDetected) Parainfluenza 1 (PCR) (NotDetected) Parainfluenza 2 (PCR) (NotDetected) Parainfluenza 3 (PCR) (NotDetected) Parainfluenza 4 (PCR) (NotDetected) RSV (PCR) (NotDetected) Entero/Rhino (PCR) (NotDetected) 09/24/23 09/24/23 Range/Units 21:50 21:39 WBC 11.62 H (4.8-10.8) K/ul RBC 4.12 L (4.20-5.40) M/uL Hgb 12.4 (12.0-16.0) g/dl Hct 37.2 (37.0-47.0) % MCV 90.3 (80.0-100.0) fL MCH 30.1 (25.0-34.0) pg MCHC 33.3 (32.0-36.0) g/dL RDW Std Deviation 42.8 (36.4-46.3) fL RDW Coeff of Nuzhat 13.0 (11.5-14.5) % Plt Count 243 (130-400) K/uL MPV 9.0 L (9.4-12.4) fL Immature Gran % (Auto) 0.8 % Neut % (Auto) 71.6 % Lymph % (Auto) 16.3 % Rooks % (Auto) 6.8 % Eos % (Auto) 3.8 % Baso % (Auto) 0.7 % Neut # (Auto) 8.33 H (1.40-6.50) K/uL Lymph # (Auto) 1.89 (1.20-3.40) K/uL Rooks # (Auto) 0.79 H (0.11-0.59) K/uL Eos # (Auto) 0.44 (0.00-0.50) K/uL Baso # (Auto) 0.08 (0.00-0.20) K/uL Immature Gran # (Auto) 0.09 (0.01-0.20) K/uL PT 10.8 (9.0-12.0) Seconds INR 1.0 (0.9-1.1) APTT 28 (21-31) Seconds PTT Ratio 1.0 ABG pH (7.35-7.45) ABG pCO2 (35-46) mmHg ABG pO2 (80-95) mmHg ABG HCO3 (19-24) mmol/L ABG O2 Saturation (90-95) % ABG Base Excess (-9-1.8) mEq/L Saleem Test (Pos) VBG pH 7.22 L (7.36-7.41) VBG pCO2 75 H (38-50) mmHg VBG pO2 35 mmHg VBG HCO3 31 mmol/L VBG O2 Saturation 61.1 % VBG Base Excess 0.8 mEq/L Oxygen Given Sodium 135 L (136-145) mmol/L Potassium 4.7 (3.5-5.1) mmol/L Chloride 98 (98-107) mmol/L Carbon Dioxide 29 (21-32) mmol/L Anion Gap 8 (3-11) BUN 32 H (6-23) mg/dl Creatinine 1.09 (0.6-1.2) mg/dl Est Cr Clr Drug Dosing Not Reportable Est GFR ( Amer) 53.2 ml/min Est GFR (Non-Af Amer) 45.9 ml/min BUN/Creatinine Ratio 29.4 H (10-20) Glucose 158 H (70-99(Fasting)) mg/dl POC Glucose (70-99) mg/dl Estimat Average Glucose mg/dl Hemoglobin A1c (4.5-5.6) % Lactate (0.4-2.0) mmol/L Calcium 9.3 (8.6-10.3) mg/dl Magnesium 1.8 (1.7-2.4) mg/dl Total Bilirubin 0.5 (0.2-1.0) mg/dl AST 9 L (13-39) U/L ALT 4 L (7-52) U/L Alkaline Phosphatase 51 (34-104) U/L Troponin I High Sens 6.5 (0-14) pg/ml B-Natriuretic Peptide 244 H (0-100) pg/ml Total Protein 7.5 (6.0-8.3) gm/dl Albumin 4.3 (3.4-5.0) gm/dl Globulin 3.2 (2.5-4.0) gm/dl Albumin/Globulin Ratio 1.3 (0.9-2) Procalcitonin 0.08 (0-0.5) ng/ml TSH 0.557 (0.300-4.500) uIu/ml Urine Color Urine Appearance (Clear) Urine pH (4.5-7.5) Ur Specific [place] (1.000-1.030) Urine Protein (Negative) Urine Glucose (UA) (Negative) Urine Ketones (Negative) Urine Blood (Negative) Urine Nitrite (Negative) Urine Bilirubin (Negative) Urine Urobilinogen (Negative) Ur Leukocyte Esterase (Negative) Urine WBC (Auto) (0-5) /hpf Urine RBC (Auto) (0-4) /hpf U Hyaline Cast (Auto) (0-5) /lpf U Epithel Cells (Auto) (0-5) /lpf Urine Bacteria (Auto) (Negative) Adenovirus (PCR) Not Detected (NotDetected) B. pertussis DNA (PCR) Not Detected (NotDetected) B.parapertussis DNA PCR Not Detected (NotDetected) C. pneumoniae DNA (PCR) Not Detected (NotDetected) Coronavirus OC43 (PCR) Not Detected (NotDetected) Coronavirus HKU1 (PCR) Not Detected (NotDetected) Coronavirus 229E (PCR) Not Detected (NotDetected) SARS-CoV-2 (PCR) Not Detected (NotDetected) Coronavirus NL63 (PCR) Not Detected (NotDetected) Human Metapneumovir PCR Not Detected (NotDetected) Influenza Type A (PCR) Not Detected (NotDetected) Influenza Type B (PCR) Not Detected (NotDetected) M. pneumoniae (PCR) Not Detected (NotDetected) Parainfluenza 1 (PCR) Not Detected (NotDetected) Parainfluenza 2 (PCR) Not Detected (NotDetected) Parainfluenza 3 (PCR) Not Detected (NotDetected) Parainfluenza 4 (PCR) Not Detected (NotDetected) RSV (PCR) Not Detected (NotDetected) Entero/Rhino (PCR) Not Detected (NotDetected) Diagnostic Findings Chest X-Ray 09/24/23 21:44 SINGLE VIEW CHEST CLINICAL HISTORY: Dyspnea FINDINGS: An AP, portable, upright chest radiograph is compared to study dated 08/10/2017. Surgical clips are seen in the right lower neck. The heart is enlarged noting atherosclerotic calcification of the thoracic aorta. The pulmonary vasculature is noncongested. Chronic interstitial thickening is similar to previous. There is mild bibasilar scarring/atelectasis. No airspace consolidation or large pleural effusion is identified. No pneumothorax is seen. The skeletal structures are osteopenic. The bony thorax is grossly intact. IMPRESSION: Cardiomegaly with no active disease in the chest. ACT 112: Negative or not required by law. Electronically signed by: Didier Mcgarry M.D. 09/24/2023 10:[address] 09/24/23 21:53 CT SCAN OF THE BRAIN WITHOUT IV CONTRAST CLINICAL HISTORY: Change in mental status. COMPARISON STUDY: CT of the brain dated 04/22/2013. TECHNIQUE: Unenhanced axial CT scan of the brain is performed from the vertex to the skull base. A dose lowering technique was utilized adhering to the principles of ALARA. CT DOSE: 547.75 mGy.cm FINDINGS: Brain parenchyma: There is age-related involutional change noting moderate to advanced subcortical and periventricular microangiopathic disease. There is no hemorrhage, mass effect, or evidence of acute territorial ischemia by CT criteria. Bauer-white matter differentiation is preserved. No extra-axial fluid collection is seen. Ventricles, sulci, cisterns: Prominent secondary to involutional change. Intracranial vasculature: There is atherosclerotic calcification of the cavernous carotid and vertebral arteries. Calvarium: Unremarkable. Sinuses and mastoids: There is moderate mucosal thickening in the left maxillary antrum with an air-fluid level. The remaining visualized paranasal sinuses are clear. There are bilateral mastoid effusions. Orbits: The bony orbits are grossly intact. There are bilateral ocular lens implants. IMPRESSION: There is no hemorrhage, mass effect, or evidence of acute territo rial ischemia by CT criteria. ACT 112: Negative or not required by law. Electronically signed by: Didier Mcgarry M.D. 09/24/2023 10:51 PM Chest CTA 09/25/23 00:25 Exam(s): CTA CHEST IV Amt: 117 ml opti 320 EXAM: CT Angiography Chest With Intravenous Contrast CLINICAL HISTORY: Chest Pain. TECHNIQUE: Axial computed tomographic angiography images of the chest with intravenous contrast. MIPS images were created and reviewed. CTDI is 20. 28 mGy and DLP is 629.39 mGy-cm. Automated exposure control was utilized for the study. A dose lowering technique was utilized adhering to the principles of ALARA. MIP reconstructed images were created and reviewed. COMPARISON: CTA chest 08/19/2008 FINDINGS: Pulmonary arteries: Unremarkable. No pulmonary embolus. Aorta: Mild atherosclerosis. No thoracic aortic aneurysm. Lungs: Interseptal thickening is concerning for pulmonary edema. No mass. Pleural space: Unremarkable. No significant effusion. No pneumothorax. Heart: Unremarkable. No cardiomegaly. No significant pericardial effusion. No evidence of RV dysfunction. Bones/joints: There are degenerative changes of the spine. No acute fracture. Soft tissues: Unremarkable. Lymph nodes: Unremarkable. No enlarged lymph nodes. IMPRESSION: 1. No pulmonary embolus. 2. Interseptal thickening is concerning for pulmonary edema. Electronically signed by: Qian Feliciano MD 09/25/23 02:14 AM PG Care Time/CCT Total # of Minutes Spent Total Time Spent with Patient: Total time spent is greater than 50% in coordination of care (as documented) at patient's floor/unit and/or counseling patient: I spent 95 minutes overall addressing this case: 15 min in medical data review/discussion with referring provider(s) and/or preparation for the visit 20 min in direct interaction with the patient/exam 30 min in Advance Care Planning/Goals of Care discussions as detailed above in note (must be >16min) 15 min in subsequent review and synthesis of assessment and plan 15 min communicating with other providers regarding the patient's case: Advanced Care Planning 17118 Advanced Care Planning 30 [place] [address] IN/OBS CONSULT LVL 4,60M Patient Type New History Comprehensive Exam Comprehensive Medical Decision Making High Complexity Diagnoses Dyspnea and respiratory abnormalities R06.00; R06.89 Weakness generalized R53.1 Severe muscle deconditioning R29.898 Advanced care planning/counseling discussion Z71.89 Encounter for hospice care discussion Z71.89 Palliative care by specialist Z51.5 Additional Codes Advanced Care Planning - 66587 Advanced Care Planning 30 Min: 77962 Advanced Care Planning 30 Min ([id number])
[2023-09-27 04:41] LABS: Base Excess VBG 7.2 mEq/L; HCO3 VBG 33 mmol/L; Oxygen Saturation VBG 86.1 %; PCO2 VBG 51 mmHg (38-50); PO2 VBG 51 mmHg; pH VBG 7.42 (7.36-7.41)
[2023-09-27 04:56] LABS: Hematocrit (blood only) 31.5 % (37.0-47.0); Mean Corpuscular Hemoglobin 29.6 pg (25.0-34.0); Mean Corpuscular Hgb Conc 34.9 g/dL (32.0-36.0); Mean Corpuscular Volume 84.7 fL (80.0-100.0); Mean Platelet Volume 9.3 fL (9.4-12.4); Platelet Count 218 K/uL (130-400); RDW Coefficient of Variation 12.4 % (11.5-14.5); RDW Standard Deviation 38.1 fL (36.4-46.3); Red Blood Count 3.72 M/uL (4.20-5.40); White Blood Count 8.61 K/ul (4.8-10.8)
[2023-09-27 05:25] LABS: BUN Creatinine Ratio 38.7 (10-20); Calcium 8.7 mg/dl (8.6-10.3); Creatinine Clr Calc Pharmacy 28.5 ml/min; Est GFR (African American) 45.5 ml/min; Est GFR (Non-African American) 39.3 ml/min; Magnesium 1.7 mg/dl (1.7-2.4); Potassium 4.1 mmol/L (3.5-5.1)
[2023-09-27] MEDS ORDERED: LEVALBUTEROL 1.25 MG/3 ML NEB NEB PRN (14:20)
[2023-09-27] MEDS ORDERED: IPRATROPIUM BROMIDE NEB SOLN 0.02% 0.5MG/2.5ML VIAL INH PRN (14:21)
--- NOTE | 2023-09-27 15:13 | Hospitalist Progress Note ---
Date of Service September 27, 2023 Assessment & Plan (1) Acute hypercapnic respiratory failure: Plan: Acute on chronic hypoxic, hypercarbic respiratory failure Chronic oxygen dependency Acute COPD exacerbation H/O Pulmonary hypertension/cor pulmonale Acute metabolic encephalopathy secondary to above --CTA:No pulmonary embolus. Interseptal thickening is concerning for pulmonary edema. --CT Head:There is no hemorrhage, mass effect, or evidence of acute territorial ischemia by CT criteria. --BioFire negative Continue Augmentin, nebs, prednisone Continue home inhalers Continue supplemental oxygen to keep saturation 88 to 92% Reorient frequently to minimize delirium BiPAP at bedtime and PRN tolerates Appreciate palliative care input Patient/family plans to discuss with other family members to see if hospice is an option on discharge. 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/TR Continue home medications Monitor volume status Dysphagia Possible aspiration Atypical chest discomfort likely secondary to above H/O GERD Aspiration precautions Continue PPI Empirically on Augmentin Speech therapy evaluated May need video swallow study unless family prefers hospice Tolerating current diet DM II HbA1c 5.8 Hold home regimen Continue insulin per protocol Monitor BGs Other chronic conditions: PSVT Hyperlipidemia Anxiety/mood disorder Continue home medications DVT Px: Lovenox SQ Code Status DNI/DNR Palliative care consulted to address goals of care Disposition PT OT prior to discharge Admission and Anticipated Discharge Date Admission Date: September 25, 2023 Subjective Patient is seen and examined at bedside No new complaints Sitting in chair comfortably during my encounter No chest pain today Tolerating current diet Denies any dyspnea today Saturating well on room air Review of Systems Review of Systems: All systems reviewed & are unremarkable except as noted in Subjective Physical Exam Physical Exam: Physical Exam: Vitals signs as noted above General Appearance:Obese, no apparent distress Head: normocephalic, Atraumatic Eyes: normal inspection, EOMI Neck: supple, Trachea midline Respiratory/Chest: Decreased breath sounds, CTA, No accessory muscle use Cardiovascular: S1, S2, +murmur Abdomen/GI:Soft, Non tender, Bowel sounds present Extremities/Musculoskeletal:normal inspection, no edema Neurologic/Psych:AAOX2, grossly no focal neurological deficits, +decreased hearing Skin: normal color, warm Results & Data Results & Data Vital Signs (Past 12 Hours) Vital Signs Temp Pulse Pulse Resp BP Pulse Ox O2 Del Method 09/27/23 14:00 75 09/27/23 13:42 75 18 95 Room Air 09/27/23 10:50 36.7 C 70 17 115/66 94 Room Air 09/27/23 10:24 Room Air 09/27/23 07:42 76 14 95 Nasal Cannula 09/27/23 07:12 36.7 C 72 17 147/73 H 97 Room Air O2 Flow Rate 09/27/23 14:00 09/27/23 13:42 09/27/23 10:50 09/27/23 10:24 09/27/23 07:42 2 09/27/23 07:12 2 Laboratory Results Short CBC 09/27/23 Range/Units 04:16 WBC 8.61 (4.8-10.8) K/ul Hgb 11.0 L (12.0-16.0) g/dl Hct 31.5 L (37.0-47.0) % Plt Count 218 (130-400) K/uL BMP 09/27/23 04:16 Sodium 132 L Potassium 4.1 Chloride 96 L Carbon Dioxide 28 BUN 48 H Creatinine 1.24 H Glucose 144 H Calcium 8.7
[2023-09-27] MEDS: AMOXICILLIN/CLAVULANATE 500 MG TAB PO SCH (17:30)
[2023-09-28 06:45] LABS: Hematocrit (blood only) 30.3 % (37.0-47.0); Hemoglobin 10.7 g/dl (12.0-16.0); Mean Corpuscular Hemoglobin 30.1 pg (25.0-34.0); Mean Corpuscular Hgb Conc 35.3 g/dL (32.0-36.0); Mean Corpuscular Volume 85.4 fL (80.0-100.0); Platelet Count 208 K/uL (130-400); RDW Coefficient of Variation 12.4 % (11.5-14.5); Red Blood Count 3.55 M/uL (4.20-5.40); White Blood Count 7.86 K/ul (4.8-10.8)
[2023-09-28 07:10] LABS: BUN Creatinine Ratio 41.3 (10-20); Calcium 8.9 mg/dl (8.6-10.3); Creatinine Clr Calc Pharmacy 33.7 ml/min; Est GFR (African American) 56.3 ml/min; Est GFR (Non-African American) 48.6 ml/min; Potassium 4.2 mmol/L (3.5-5.1)
--- NOTE | 2023-09-28 11:15 | Hospitalist Progress Note ---
Date of Service September 28, 2023 Assessment & Plan (1) Acute hypercapnic respiratory failure: Plan: Acute on chronic hypoxic, hypercarbic respiratory failure due toAcute COPD exacerbation chronic oxygen dependency H/O Pulmonary hypertension/cor pulmonale Acute metabolic encephalopathy secondary to above --CTA:No pulmonary embolus. Interseptal thickening is concerning for pulmonary edema. --CT Head:There is no hemorrhage, mass effect, or evidence of acute territorial ischemia by CT criteria. --BioFire negative Continue Augmentin, nebs, prednisone Continue home inhalers Continue supplemental oxygen to keep saturation 88 to 92% BiPAP at bedtime and PRN tolerates Appreciate palliative care input and recommendation Patient/family plans to discuss with other family members to see if hospice is an option on discharge. 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 Continue home medications No hypervolemia Dysphagia Possible aspiration Atypical chest discomfort likely secondary to above H/O GERD Aspiration precautions Continue PPI Empirically on Augmentin Appreciate his speech evaluation and recommendation Discharge instructions-easy to chew, thin liquids with aspiration and reflux precautions DM II HbA1c 5.8 Hold home regimen Continue insulin per protocol Monitor BGs Other chronic conditions: PSVT Hyperlipidemia Anxiety/mood disorder Continue home medications DVT Px: Lovenox SQ Code Status DNI/DNR Palliative care consulted to address goals of care Disposition PT OT prior to discharge Will be discharged to [facility] this afternoon Admission and Anticipated Discharge Date Admission Date: September 25, 2023 Subjective 09/28/2023 The patient is seen and examined in telemetry unit She has been feeling much better and wants to go to rehab today Denies any shortness of breath, palpitation or chest pain at rest Has been ambulating without any difficulties Will be transferred to [facility] this Review of Systems Review of Systems: All systems reviewed and are unremarkable except as noted in Physical Exam Physical Exam: Lying in bed without any acute distress Constitutional: well developed and well nourished; not ill appearing Eyes: PERRL, conjunctivae normal, anicteric sclerae ENMT: external ear and nose normal, oropharynx normal Neck: trachea midline, no thyromegaly Respiratory: no respiratory distress Auscultation: + diminished lung sounds and + wheezes (Minimal wheezing) Cardiovascular: Rate/Rhythm: regular rate and regular rhythm; not tachycardic Heart Sounds: normal S1 and normal S2; no murmur Extremities: no edema Gastrointestinal (Abdomen): Inspection/Auscultation: normal bowel sounds; abdomen not distended Percussion/Palpation: abdomen soft; abdomen nontender Musculoskeletal: No acute arthritis involving any of the joints Neurologic: normal touch/pain/proprioception and moves all extremities; no focal motor deficits Psychiatric: A+Ox3, euthymic affect Lymphatic: no cervical or axillary lymphadenopathy Results & Data Results & Data Vital Signs (Past 12 Hours) Vital Signs Temp Pulse Pulse Resp BP BP Pulse Ox 09/28/23 08:00 09/28/23 07:54 66 09/28/23 07:21 36.6 C 77 17 152/77 H 98 09/28/23 03:07 36.6 C 70 20 165/72 H 97 09/27/23 23:36 79 O2 Del Method O2 Flow Rate 09/28/23 08:00 Room Air 09/28/23 07:54 09/28/23 07:21 Room Air 09/28/23 03:07 Nasal Cannula 2 09/27/23 23:36 Laboratory Results Short CBC 09/28/23 Range/Units 06:02 WBC 7.86 (4.8-10.8) K/ul Hgb 10.7 L (12.0-16.0) g/dl Hct 30.3 L (37.0-47.0) % Plt Count 208 (130-400) K/uL BMP 09/28/23 06:02 Sodium 135 L Potassium 4.2 Chloride 100 Carbon Dioxide 30 BUN 43 H Creatinine 1.04 Glucose 133 H Calcium 8.9 Medications Administered Current Inpatient Medications Acetaminophen (Acetaminophen 325 Mg Tab) 650 mg PO QID PRN PRN Reason: pain/fever Stop: 10/25/23 00:29 Last Admin: 09/25/23 08:21 Dose: 650 mg Amoxicillin/Clavulanate Potassium (Amoxicillin/Clavulanate 500 Mg Tab) 1 tab PO BIDM [facility]; Protocol Stop: 10/04/23 16:59 Last Admin: 09/28/23 08:19 Dose: 1 tab Aspirin (Aspirin 81 Mg Ectab) 81 mg PO DAILY MARIAH Stop: 10/25/23 08:59 Last Admin: 09/28/23 08:19 Dose: 81 mg Carvedilol (Carvedilol 25 Mg Tab) 25 mg PO BID MARIAH Stop: 10/25/23 08:59 Last Admin: 09/28/23 08:19 Dose: 25 mg Dextrose (Dextrose 50% 50 Ml Syringe) 25 - 50 ml IV UD PRN; Protocol PRN Reason: Hypoglycemia Protocol Stop: 10/25/23 02:12 Ezetimibe (Ezetimibe 10 Mg Tab) 10 mg PO DAILY MARIAH Stop: 10/25/23 08:59 Last Admin: 09/28/23 08:19 Dose: 10 mg Enoxaparin Sodium (Enoxaparin Inj 30 Mg/0.3 Ml Syr) 30 mg SQ QAM MARIAH Stop: 10/25/23 08:59 Last Admin: 09/28/23 08:20 Dose: 30 mg Escitalopram Oxalate (Escitalopram Oxalate 20 Mg Tab) 20 mg PO QAM MARIAH Stop: 10/25/23 08:59 Last Admin: 09/28/23 08:19 Dose: 20 mg Fluticasone/Vilanterol (Fluticasone/Vilanterol 100/25mcg 14 Puffs/Inhaler) 1 puffs INH DAILY MARIAH Stop: 10/25/23 08:59 Last Admin: 09/28/23 08:20 Dose: 1 puffs Gabapentin (Gabapentin 100 Mg Cap) 200 mg PO BID MARIAH Stop: 10/25/23 08:59 Last Admin: 09/28/23 08:20 Dose: 200 mg Glucagon (Glucagon For Inj 1 Mg Vial) 1 mg SQ UD PRN; Protocol PRN Reason: Hypoglycemia Protocol Stop: 10/25/23 02:12 Glucose (Glucose 10 Tab/Tube) 4 - 8 tab PO UD PRN; Protocol PRN Reason: Hypoglycemia Treatment Stop: 10/25/23 02:12 Glucose (Glucose 40% Gel 15 Gm Tube) 15 - 30 gm PO UD PRN; Protocol PRN Reason: Hypoglycemia Protocol Stop: 10/25/23 02:12 Hydralazine HCl (Hydralazine 10 Mg Tab) 15 mg PO TID MARIAH Stop: 10/25/23 08:59 Last Admin: 09/28/23 08:20 Dose: 15 mg Hydroxyzine HCl (Hydroxyzine Hcl 10 Mg Tab) 10 mg PO QID PRN PRN Reason: Anxiety Stop: 10/25/23 00:29 Promethazine HCl 6.25 mg/ (Sodium Chloride) 50.25 mls @ 201 mls/hr IV Q6H PRN PRN Reason: Nausea And Vomiting Stop: 10/25/23 00:29 Insulin Aspart (Insulin Aspart Per Unit Charge) 0 units SC ACHS MARIAH Stop: 10/25/23 11:29 Last Admin: 09/28/23 08:47 Dose: 3 units Insulin Glargine (Lantus Per Unit Charge) 5 units SQ HS MARIAH Stop: 10/25/23 02:12 Last Admin: 09/27/23 20:29 Dose: 5 units Ipratropium [place] (Ipratropium [place] Neb Soln 0.02% 0.5mg/2.5ml Vial) 0.5 mg INH Q6R PRN PRN Reason: Shortness Of Breath Or Wheezing Stop: 10/25/23 00:59 Levalbuterol HCl (Levalbuterol 1.25 Mg/3 Ml Neb) 1.25 mg NEB Q6R PRN PRN Reason: Shortness Of Breath Or Wheezing Stop: 10/25/23 00:59 Lisinopril (Lisinopril 5 Mg Tab) 5 mg PO BID [facility] Stop: 10/25/23 08:59 Last Admin: 09/28/23 08:20 Dose: 5 mg Miscellaneous (Carbohydrates For Hypoglycemia ) 15 - 30 gm PO UD PRN PRN Reason: Hypoglycemia Protocol Stop: 10/25/23 02:12 Nitroglycerin (Nitroglycerin Sl 0.4 Mg/Tab Tab) 0.4 mg SL Q5M PRN PRN Reason: Chest Pain Stop: 10/25/23 02:12 Nystatin (Nystatin Powder 15gm Btl) 1 appln EXT DAILY PRN PRN Reason: Affected Skin Folds Stop: 10/25/23 10:00 Last Admin: 09/25/23 17:55 Dose: 1 appln Oxycodone HCl (Oxycodone Hcl Ir 5 Mg Tab (Immediate Release)) 5 mg PO Q4H PRN PRN Reason: Pain Stop: 10/09/23 00:29 Pantoprazole Sodium (Pantoprazole 40 Mg Tab) 40 mg PO BID [facility] Stop: 10/25/23 20:59 Last Admin: 09/28/23 08:19 Dose: 40 mg Prednisone (Prednisone 20 Mg Tab) 40 mg PO DAILY [facility] Stop: 09/29/23 08:59 Last Admin: 09/28/23 08:20 Dose: 40 mg
--- NOTE | 2023-09-29 08:28 | Discharge Summary ---
Date of Service September 28, 2023 Admission HPI Per Admitting Provider History obtained from patient, family, and records. Limited history from patient secondary to marked hearing impairment. Medical history significant for chronic respiratory failure secondary to COPD on home O2, bronchial asthma, cor pulmonale/pulmonary hypertension, nocturnal hypoxemia as per records, valvular heart disease (severe , mild to moderate MR/TR), PSVT, hypertension, hyperlipidemia, DM2 on oral medications, GERD, anxiety/mood disorder. Last confinement 2012 for metabolic encephalopathy secondary to Proteus UTI. 1 week history of junky cough symptoms associated with pleuritic chest pain and worsening shortness of breath. Patient noted to be more confused than usual. Food occasionally getting stuck in the throat. Not sure about sick contacts. Denies fluid retention. O2 sats 80s upon arrival at the ER. BiPAP initiated; Solu-Medrol, neb treatment, and doxycycline administered at the ER. 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 Admission Exam Per Admitting Provider Physical Exam: GENERAL: uncomfortable, anxious, obese, minimal respiratory distress SKIN: Normal color, warm HEENT: [place] palpebral conjunctivae, no ptosis, dry buccal mucosa, BiPAP in place NECK : Supple, no tenderness CHEST : Decreased breath sounds, no tenderness HEART : Tachycardic, systolic murmur ABDOMEN: Some distention, nontender EXTREMITIES : No LE swelling/tenderness, no other conspicuous deformities noted NEUROLOGIC : Oriented to month and year, no facial asymmetry, hard of hearing, gait and stance not assessed Principal Diagnosis Acute on chronic respiratory failure ,COPD exacerbation, hypertensive urgency, valvular heart disease, PSVT, type 2 diabetes Discharge Exam Lying in bed without any acute distress Constitutional well developed and well nourished; not ill appearing Eyes PERRL, conjunctivae normal, anicteric sclerae ENMT external ear and nose normal, oropharynx normal Neck trachea midline, no thyromegaly Respiratory no respiratory distress Auscultation: + diminished lung sounds and + wheezes (Minimal wheezing) Cardiovascular Rate/Rhythm: regular rate and regular rhythm; not tachycardic Heart Sounds: normal S1 and normal S2; no murmur Extremities: no edema Gastrointestinal (Abdomen) Inspection/Auscultation: normal bowel sounds; abdomen not distended Percussion/Palpation: abdomen soft; abdomen nontender Neurologic normal touch/pain/proprioception and moves all extremities; no focal motor deficits Psychiatric A+Ox3, euthymic affect Lymphatic no cervical or axillary lymphadenopathy Discharge Data Allergies Allergy/AdvReac Type Severity Reaction Status Date / Time No Known Allergies Allergy Verified 09/25/23 00:18 Consultations 09/24/23 23:27 ED Decision to Admit Stat 09/25/23 04:35 Consult Palliative Care Routine Ordered Studies 09/24/23 21:53 CT head/brain wo con Stat 09/25/23 00:25 CT angio chest PE protocol Stat Hospital Course (1) Acute hypercapnic respiratory failure: Acute on chronic hypoxic, hypercarbic respiratory failure due toAcute COPD exacerbation chronic oxygen dependency H/O Pulmonary hypertension/cor pulmonale Acute metabolic encephalopathy secondary to above --CTA:No pulmonary embolus. Interseptal thickening is concerning for pulmonary edema. --CT Head:There is no hemorrhage, mass effect, or evidence of acute territorial ischemia by CT criteria. --BioFire negative Continue Augmentin, nebs, prednisone Continue home inhalers Continue supplemental oxygen to keep saturation 88 to 92% BiPAP at bedtime and PRN tolerates Appreciate palliative care input and recommendation Patient/family plans to discuss with other family members to see if hospice is an option on discharge. The patient and the family member decided to go for short-term rehab before transition to hospice She has been feeling much better today without any significant symptoms She can be discharged to [facility] this afternoon Hypertensive urgency Likely situational Continue carvedilol, lisinopril, hydralazine Blood pressure remains in the upper set at 152/77 No acute symptoms Valvular heart disease severe , mild to moderate MR/TR Continue home medications No hypervolemia Dysphagia Possible aspiration Atypical chest discomfort likely secondary to above H/O GERD Aspiration precautions Continue PPI Empirically on Augmentin Appreciate his speech evaluation and recommendation Discharge instructions-easy to chew, thin liquids with aspiration and reflux precautions DM II HbA1c 5.8 Hold home regimen Continue insulin per protocol Monitor BGs Other chronic conditions: PSVT Hyperlipidemia Anxiety/mood disorder Continue home medications DVT Px: Lovenox SQ Code Status DNI/DNR Palliative care consulted to address goals of care Disposition PT OT prior to discharge Will be discharged to [facility] this afternoon Total Time Total Time Spent Total Time Spent (In Minutes): 35 minutes Discharge Plan Discharge Items Patient Disposition: Transfer Inpatient Rehab Fac Reason For Visit: RESP FAILURE Discharge Diagnosis: Acute on chronic respiratory failure ,COPD exacerbation, hypertensive urgency, valvular heart disease, PSVT, type 2 diabetes Condition on Discharge: Fair Activity: Resume your previous activity Non-emergency contact: Primary Care Provider Call non-emergency contact if: you have any medication questions and your symptoms worsen Follow-up/Referrals: Jose Bowles MD [Primary Care Provider] - (Please make an appointment with your PCP within 7 days following discharge from the facility) Diet: Carb Consistent or DM2 Diet Texture: Easy to Chew Addtl Attending Provider Instructions: Please take precautions to avoid falls Take your medications as advised Continue with the PT and OT Continue oxygen as needed Please keep appointments with your healthcare providers Possible transition to hospice care following discharge Pending Studies at Discharge: No Stand-Alone Forms: [facility] Skilled Items Patient informed of condition?: Yes DNR: Yes Discharge Level of Care: Acute rehab Communicable Disease: No Discharge Prognosis: Stable Lines: None Urinary Catheter: No Medications and DC Order Prescriptions: New amoxicillin-pot clavulanate 500-125 mg Tablet 1 tab PO BIDM Qty: 14 0RF Continued aspirin [Adult Aspirin Regimen] 81 mg tablet,delayed release (DR/EC) 81 mg PO DAILY atorvastatin 10 mg tablet 10 mg PO QPM carvedilol [Coreg] 25 mg tablet 25 mg PO BID hydroxyzine HCl 10 mg tablet 10 mg PO TID PRN (Reason: Itching) lisinopril 5 mg tablet 5 mg PO BID lorazepam 0.5 mg tablet 0.5 mg BUCCAL QID PRN (Reason: Anxiety) hydralazine 10 mg tablet 15 mg PO TID ipratropium-albuterol 0.5 mg-3 mg(2.5 mg base)/3 mL Solution For Nebulization 3 ml INHALATION QID PRN (Reason: Shortness Of Breath Or Wheezing) hydrocodone-acetaminophen 5-325 mg tablet 1 tab PO Q8 PRN (Reason: Pain) triamcinolone acetonide 0.1 % cream 1 applic TOPICAL BID PRN (Reason: .Neck & chest) lndffjwcdx-tgfbecvrsspqn-coog 50-325-40 mg tablet 1 tab PO DIRECTED PRN (Reason: Migraine Headache) nitroglycerin [Nitrostat] 0.4 mg Tablet, Sublingual 0.4 mg sublingual DIRECTED PRN (Reason: Chest Pain) gabapentin 100 mg capsule 200 mg PO BID albuterol sulfate 90 mcg/actuation Hfa Aerosol Inhaler 2 puff INHALATION Q6H PRN (Reason: Shortness Of Breath Or Wheezing) Rx Instructions: daughter does not remember this but it is on gmg list escitalopram oxalate 20 mg tablet 20 mg PO QAM ezetimibe 10 mg tablet 10 mg PO DAILY budesonide-formoterol [Symbicort] 160-4.5 mcg/actuation Hfa Aerosol Inhaler 2 puff INHALATION BID Combivent Respimat 20-100 mcg/actuation Mist 1 puff INHALATION QID PRN (Reason: Shortness Of Breath Or Wheezing) Rx Instructions: space evenly during waking hours Trulicity 0.75 mg/0.5 mL pen injector 0.75 mg subcut .Q FRI Rx Instructions: 0.75 mg subcutaneously omeprazole magnesium [Prilosec OTC] 20 mg tablet,delayed release (DR/EC) 20 mg PO DAILY Discharge Orders: Discharge Order (Routine); Ordered 09/28/23 Ordered By: Mamie Teague/Other Patient Handouts: A1C Admission Data Admit Date/Time: 09/25/23 00:28 Attending Provider: Mamie Campos Admit Provider: Kenneth Escobar Primary Care Provider: Jose Bowles Other Providers: Kenneth Escobar; Fern Owen; [facility]; Dakotah Vinson Other Interventions: Discharge Summary Assessment (RN) Last Done: 09/28/23 15:12
== END 2023-09-28 15:40 | DRG 189 ==
LOC: ED 21:16 → SUATTDRO 09-25 00:28 → 4W 09-25 00:28